=== PATIENT | female | born 1945 | race Caucasian/White ===

== ENCOUNTER 2020-07-11 12:39 | Outpatient (CLI) | payer MEDICARE, OTHER, SELFPAY ==
--- NOTE | ~2020-07-11 | DEXA_ITS ---
Bone Density Report Name: Verona Arango Age: 75 Sex: Female Ethnicity: White Date of : 1945 Indication: osteopenia; height loss; prior fracture; Referring Provider: TOMMY DODSON Study: Bone densitometry was performed. Exam Date: July 11, 2020 Accession number: [id number] Bone Density: Region BMD T-score Z-score Classification AP Spine (L1, L3, L4) 0.920 -1.2 1.2 Osteopenia Femoral Neck (Left) 0.674 -1.6 0.5 Osteopenia Total Hip (Left) 0.817 -1.0 0.7 Normal Total Hip Bilateral Avg 0.796 -1.2 0.6 Osteopenia Femoral Neck (Right) 0.647 -1.8 0.2 Osteopenia Total Hip (Right) 0.774 -1.4 0.4 Osteopenia World Health Organization criteria for BMD impression classify patients as: Normal (T-score at or above -1.0), Osteopenia (T-score between -1.0 and -2.5), or Osteoporosis (T-score at or below -2.5). 10-year Fracture Risk(1): Major Osteoporotic Fracture 17% Hip Fracture 3.5% Reported Risk Factors: [place] (), Neck BMD=0.647, BMI=35.7, previous fracture (1) FRAX(R) Version 3.08. Fracture probability calculated for an untreated patient. Fracture probability may be lower if the patient has received treatment. Previous Exams: Region Exam Age BMD T-score BMD Change BMD Change Date g/cm2 vs Baseline vs Previous AP Spine(L1, L3, L4) 07/11/2020 75 0.920 -1.2 -0.279(-23.3%) -0.108(-10.5%) 07/08/2018 73 1.028 -0.2 -0.171(-14.3%) -0.218(-17.5%) 11/08/2013 68 1.246 1.8 0.047(3.9%)# -0.024(-1.9%)# 03/28/2010 65 1.270 2.0 0.070(5.9%)* 0.070(5.9%)* 03/24/2008 63 1.199 1.3 Total Hip(Left) 07/11/2020 75 0.817 -1.0 -0.418(-33.8%) 0.023(2.9%)# 07/08/2018 73 0.794 -1.2 -0.441(-35.7%) -0.233(-22.7%) 11/11/2015 70 1.028 0.7 -0.207(-16.8%) -0.202(-16.4%) 11/08/2013 68 1.230 2.4 -0.005(-0.4%)# -0.019(-1.5%)# 03/28/2010 65 1.249 2.5 0.013(1.1%) 0.013(1.1%) 03/24/2008 63 1.235 2.4 Total Hip(Right) 07/11/2020 75 0.774 -1.4 -0.443(-36.4%) 0.009(1.2%)# 07/08/2018 73 0.765 -1.5 -0.452(-37.2%) -0.235(-23.5%) 11/11/2015 70 0.999 0.5 -0.218(-17.9%) -0.173(-14.8%) 11/08/2013 68 1.172 1.9 -0.045(-3.7%)# -0.019(-1.6%)# 03/28/2010 65 1.191 2.0 -0.026(-2.1%) -0.026(-2.1%) 03/24/2008 63 1.217 2.3 *Denotes significance at 95% confidence level, LSC for AP Spine = 0.022 g/cm2, LSC for Total Hip = 0.027 g/cm2 Clinical Information Provided by Patient: Has had a low trauma fracture
== END 2020-07-11 12:40 | disposition home or self-care (01) ==
PROVIDERS: Visit Provider Obstetrics & Gynecology Gynecology
DX: Z78.0 Asymptomatic menopausal state (principal); M85.88 Other specified disorders of bone density and structure, other site; M85.852 Other specified disorders of bone density and structure, left thigh; M85.851 Other specified disorders of bone density and structure, right thigh
CPT/HCPCS: 77080

== ENCOUNTER 2022-07-24 11:53 | Outpatient (CLI) | payer MEDICARE, OTHER, SELFPAY ==
--- NOTE | ~2022-07-24 | DEXA_ITS ---
Bone Density Report Name: OCTAVIA TRUONG Age: 77 Sex: Female Ethnicity: White Date of : 1945 Indication: osteopenia; height loss; postmenopausal Referring Provider: RAVINDRA, DANYELL Study: Bone densitometry was performed. Exam Date: July 24, 2022 Accession number: [id number] Bone Density: Region BMD T-score Z-score Classification AP Spine(L1, L2, L3) 0.962 -0.5 1.9 Normal Femoral Neck (Left) 0.600 -2.2 -0.1 Osteopenia Total Hip (Left) 0.732 -1.7 0.1 Osteopenia Femoral Neck (Right) 0.578 -2.4 -0.3 Osteopenia Total Hip (Right) 0.716 -1.9 0.0 Osteopenia Total Hip Mean 0.724 -1.8 0.1 Osteopenia World Health Organization criteria for BMD impression classify patients as: Normal (T-score at or above -1.0), Osteopenia (T-score between -1.0 and -2.5), or Osteoporosis (T-score at or below -2.5). 10-year Fracture Risk(1): Major Osteoporotic Fracture 15% Hip Fracture 4.3% Reported Risk Factors: [place] (), Neck BMD=0.578, BMI=35.9 (1) FRAX(R) Version 3.08. Fracture probability calculated for an untreated patient. Fracture probability may be lower if the patient has received treatment. Previous Exams: Region Exam Age BMD T-score BMD Change BMD Change Date g/cm2 vs Baseline vs Previous AP Spine (L1-L3) 07/24/2022 77 0.962 -0.5 -0.165 (-14.7% -0.083 (-8.0%) 07/08/2018 73 1.045 0.2 -0.082 (-7.3%) -0.082 (-7.3%) 11/11/2015 70 1.127 1.0 Total Hip(Left) 07/24/2022 77 0.732 -1.7 -0.296 (-28.8% -0.085 (-10.4% 07/11/2020 75 0.817 -1.0 -0.211 (-20.5% 0.023 (2.9%)# 07/08/2018 73 0.794 -1.2 -0.233 (-22.7% -0.233 (-22.7% 11/11/2015 70 1.028 0.7 Total Hip(Right) 07/24/2022 77 0.716 -1.9 -0.283 (-28.3% -0.058 (-7.4%) 07/11/2020 75 0.774 -1.4 -0.226 (-22.6% 0.009 (1.2%)# 07/08/2018 73 0.765 -1.5 -0.235 (-23.5% -0.235 (-23.5% 11/11/2015 70 0.999 0.5 *Denotes significance at 95% confidence level, LSC for AP Spine = 0.022 g/cm2, LSC for Total Hip = 0.027 g/cm2 # Denotes dissimilar scan types or analysis methods Clinical Information Provided by Patient: Patient maximum height was 64 Menopause Age: 56 No regular weight bearing exercise Drinks caffeinated beverages Onset of menses at age 13 Number of children 2 Impression: The patient has low bone mass, based on the Right Femoral Neck T-score. The patient has an estimated ten-year risk of hip fractur
== END 2022-07-24 11:54 | disposition home or self-care (01) ==
PROVIDERS: Visit Provider Nurse Practitioner
DX: Z78.0 Asymptomatic menopausal state (principal); M85.89 Other specified disorders of bone density and structure, multiple sites
CPT/HCPCS: 77080

== ENCOUNTER 2025-01-31 14:41 | Outpatient (CLI) | payer MEDICARE, OTHER, SELFPAY ==
--- NOTE | ~2025-01-31 | DEXA_ITS ---
Bone Density Report Name: OCTAVIA TRUONG Age: 79 Sex: Female Ethnicity: White Date of : 1945 Indication: osteopenia; height loss; Referring Provider: TOMMY DODSON Study: Bone densitometry was performed. Exam Date: January 31, 2025 Accession number: [id number] Bone Density: Region BMD T-score Z-score Classification AP Spine(L1, L3, L4) 0.952 -0.9 1.7 Normal Femoral Neck (Left) 0.539 -2.8 -0.5 Osteoporosis Total Hip (Left) 0.739 -1.7 0.3 Osteopenia Femoral Neck (Right) 0.556 -2.6 -0.4 Osteoporosis Total Hip (Right) 0.712 -1.9 0.1 Osteopenia Total Hip Mean 0.725 -1.8 0.2 Osteopenia World Health Organization criteria for BMD impression classify patients as: Normal (T-score at or above -1.0), Osteopenia (T-score between -1.0 and -2.5), or Osteoporosis (T-score at or below -2.5). 10-year Fracture Risk: FRAX not reported because: Some T-score for Spine Total or Hip Total or Femoral Neck at or below -2.5 Previous Exams: Region Exam Age BMD T-score BMD Change BMD Change Date g/cm2 vs Baseline vs Previous AP Spine (L1,L3-L4) 01/31/2025 79 0.952 -0.9 -0.076 (-7.4%) 0.032 (3.5%)# 07/11/2020 75 0.920 -1.2 -0.108 (-10.5% -0.108 (-10.5% 07/08/2018 73 1.028 -0.2 Total Hip(Left) 01/31/2025 79 0.739 -1.7 -0.289 (-28.1% 0.006 (0.9%) 07/24/2022 77 0.732 -1.7 -0.296 (-28.8% -0.085 (-10.4% 07/11/2020 75 0.817 -1.0 -0.211 (-20.5% 0.023 (2.9%)# 07/08/2018 73 0.794 -1.2 -0.233 (-22.7% -0.233 (-22.7% 11/11/2015 70 1.028 0.7 Total Hip(Right) 01/31/2025 79 0.712 -1.9 -0.287 (-28.8% -0.004 (-0.6%) 07/24/2022 77 0.716 -1.9 -0.283 (-28.3% -0.058 (-7.4%) 07/11/2020 75 0.774 -1.4 -0.226 (-22.6% 0.009 (1.2%)# 07/08/2018 73 0.765 -1.5 -0.235 (-23.5% -0.235 (-23.5% 11/11/2015 70 0.999 0.5 *Denotes significance at 95% confidence level, LSC for AP Spine = 0.022 g/cm2, LSC for Total Hip = 0.027 g/cm2 # Denotes dissimilar scan types or analysis methods Clinical Information Provided by Patient: Patient maximum height was 64 Menopause Age: 56 No regular weight bearing exercise Drinks caffeinated beverages Onset of menses at age 13 Number of children 2 Impression: The patient has osteoporosis, based on the Left Femoral Neck T-score. No significant bone loss was observed. Discussion: INCREASED RISK OF FRACTURE. BONE DENSITY IS UNDESIRABLY LOW AT ONE OR MORE SKELETAL SITES, CONSISTENT WITH POSTMENOPAUSAL OSTEOPOROSIS. This patient's lowest T-score meets the World Health Organization's (WHO) criteria for osteoporosis at one or more sites (T-score -2.5 or below). In untreated patients, the risk of osteoporotic fracture increases approximately two-fold for each 1.0 SD decrease in T-score. Low bone density is not the only risk factor for fracture; also consider factors such as patient's age, frailty or poor health, risk of falling, risk of injury, previous osteoporotic fracture, family history of osteoporosis, cigarette smoking, low body weight, etc. Not everyone with low bone mineral density has osteoporosis; osteomalacia and other metabolic bone disorders should also be considered. Patients who have osteoporosis should be evaluated for specific diseases and conditions (secondary causes) that may cause or contribute to bone loss. The [place] Association of Clinical Endocrinologists (AACE) and National Osteoporosis Foundation (NOF) recommend pharmacologic intervention for all postmenopausal women whose T-score is in this range. The patient should follow a healthful lifestyle (good nutrition with adequate calcium and vitamin D, and appropriate weight-bearing exercise). Follow-Up: Consider a repeat BMD and Vertebral Fracture Assessment (VFA) exam in 2 years or sooner if medically necessary, to reassess this patient's status. Reported by: RADHA on 01/31/2025 3:39:00 PM. Reviewed, dictated and finalized at location A.
--- OUTSIDE RECORDS SUMMARY | 2025-01-31 14:51 | XMS_ITS | Encounter Summary ---
Author Organization [facility] Address [address] [address] Phone Care Team Providers Care Lead Loader Name Role Phone Roman Manuel DO Primary Care Provider +- [phone] Roman Manuel DO Primary Care Provider +- [phone] Chiquita Miller MD Primary Care Provider + Renaldo Hernandez MD Primary Care Prov ider Chiquita Miller MD Primary Care Provider + Chiquita Miller MD Primary Care Provider + Encounter Details Date Type Department Care Team (Late st Contact Info) Description 07/11/2002 Orders Only [facility] [address] [facility] [address]th [place] [address] Scanning, Provider Social History Tobacco Use Types Packs/Day Years Used Date Smoking Tobacco: Never Assessed Comments Unknown Sex and Gender Information Value Date Recorded Sex Assigned at Not on file Legal Sex Female 1:59 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 Gender Identity Female 03/21/2024 3:36 PM CDT Sexual Orientation Straight 03/21/2024 3: 36 PM CDT documented as of this encounter Plan of Treatment Not on file documented as of this encounter Procedures Procedure Name Priority Date/Time Associated Diagnosis Comments SCAN - OTHER ORDERS 07/11/2002 documented in this encounter Results * SCAN - OTHER ORDERS (07/11/2002) us Provider Scanning Final Result documented in this encounter Visit Diagnoses Not on filedocumented in this encounter Additional Health Concerns Infection Onset Date Last Indicated Resolved Time COVID: Suspected 10/10/2024 10/10/2024 10/10/2024 10:06 PM SEAMER documented as of this encounter Care Teams Lead Loader Relationship Specialty Start Date End Date Roman Manuel DO PCP - General 05/30/12 03/29/17 Roman Manuel DO PCP - General 06/22/11 05/29/12 Chiquita Miller MD [address] [facility] [place] [address] [place] [id number] PCP - General 03/30/17 03/30/17 Renaldo Hernandez MD [address] [place] [address] PCP - General 03/31/17 04/05/17 Chiquita Miller MD [address] [facility] [address] [place] [address] [place] [id number] PCP - General 04/06/17 06/28/17 Chiquita Miller MD [address] [facility] [address] [place] [address] [place] [id number] PCP - General 06/29/17 documented as of this encounter
--- OUTSIDE RECORDS SUMMARY | 2025-01-31 14:51 | XMS_ITS | Continuity of Care Document ---
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 Medication Details Route Status Patient Instructions Prescription Expires Prescription Number Last Dispense Date Ordering Provider Order Date Order Qty Source albuterol 90 mcg inhaler [8.5g] See Instruct ions, # 25.5 g, 4 total refill(s ), Hard Stop Ordered 10/10/2025 5 2024 25.5 Ambulat ory Pharmac y amLODIPine 5 mg tablet 5 mg, Oral, Daily, # 90 EA, 3 total refill(s ), Hard Stop Oral (given by mouth) Discont inued 07/26/2024 4 2023 90.0 Ambulat ory Pharmac y amLODIPine 5 mg tablet See Instruct ions, # 90 EA, 3 total refill(s ), Acute Complet ed 12/01/2023 3 2023 90.0 Ambulat ory Pharmac y amLODIPine 5 mg tablet See Instruct ions, # 90 EA, 3 total refill(s ), Hard Stop Ordered 07/21/2025 5 2024 90.0 Ambulat ory Pharmac y atorvastati n 40 mg tablet See Instruct ions, # 180 EA, 3 total refill(s ), Hard Stop Ordered 08/29/2025 5 2024 180.0 Ambulat ory Pharmac y atorvastati n 80 mg tablet = 1 tab(s), Oral, Daily, # 90 EA, 0 total refill(s ), Hard Stop Oral (given by mouth) Discont inued 09/01/2024 4 2023 90.0 Ambulat ory Pharmac y celecoxib 100 mg capsule 100 mg, Oral, BID, # 180 EA, 3 total refill(s ), Hard Stop Oral (given by mouth) Discont inued 02/17/2024 4 2023 180.0 Ambulat ory Pharmac y CEPHALEXIN (CEPHALEXIN MONOHYDRATE ), 500MG, CAPSULE, ORAL, [employer], 500 ea. BOTTLE Active [id number] 4 2023 20 Pharmac y [employer] Service [employer]ilit y dapaglifloz in 10 mg tablet = 1 tab(s), Oral, Daily, # 30 EA, 0 total refill(s ), Hard Stop Oral (given by mouth) Complet ed 11/17/2024 5 2024 30.0 Ambulat ory Pharmac y DOXYCYCLINE HYCLATE (doxycyclin e hyclate), 100 MG, CAPSULE, ORAL, [employer], 500 ea. BOTTLE Active [id number] 4 2023 20 Pharmac y Data Transac t[employer] Service [employer]ilit y empaglifloz in 10 mg tablet = 1 tab(s), Oral, Daily, # 90 EA, 3 total refill(s ), Soft Stop Oral (given by mouth) Ordered 5 2024 90.0 Ambulat ory Pharmac y fluticasone 50 mcg/inh nasal spray [16g] 100 mcg, Nostril- Both, Daily, # 48 g, 3 total refill(s ), Hard Stop Nostri l-Both (into the nose) Discont inued 02/17/2024 4 2023 48.0 Ambulat ory Pharmac y fluticasone 50 mcg/inh nasal spray [16g] See dose instruct ions in comments , # 48 g, 2 total refill(s ), Acute Complet ed 07/13/2023 3 2022 48.0 Ambulat ory Pharmac y furosemide 40 mg tablet See Instruct ions, # 90 EA, 3 total refill(s ), Acute Complet ed 12/01/2023 3 2023 90.0 Ambulat ory Pharmac y furosemide 40 mg tablet = 1 tab(s), Oral, Daily, # 90 EA, 3 total refill(s ), Soft Stop Oral (given by mouth) Ordered 5 2024 90.0 Ambulat ory Pharmac y hydroxychlo roquine 200 mg tablet 200 mg, Oral, BID, # 180 EA, 3 total refill(s ), Hard Stop Oral (given by mouth) Discont inued 07/26/2024 4 2023 180.0 Ambulat ory Pharmac y hydroxychlo roquine 200 mg tablet See Instruct ions, # 180 EA, 3 total refill(s ), Hard Stop Ordered 07/21/2025 5 2024 180.0 Ambulat ory Pharmac y hydroxychlo roquine 200 mg tablet See Instruct ions, # 90 EA, 3 total refill(s ), Acute Complet ed 12/01/2023 3 2023 90.0 Ambulat ory Pharmac y isosorbide mononit ER (UD) 60 MG PO TB24 Do not drink alcohol. Take or use exactly as directed .Swallow whole. Active 02/27/2025 [id number] 4 2023 180 [facility] Jonnathan [facility] ([facility] isosorbide mononitrate ER 60 mg/24 hour tablet See dose instruct ions in comments , # 180 EA, 1 total refill(s ), Acute Complet ed 07/13/2023 3 2022 180.0 Ambulat ory Pharmac y isosorbide mononitrate ER 60 mg/24 hour tablet 60 mg, Oral, BID, # 180 EA, 3 total refill(s ), Hard Stop Oral (given by mouth) Ordered 02/27/2025 5 2024 180.0 Ambulat ory Pharmac y isosorbide mononitrate ER 60 mg/24 hour tablet 60 mg, Oral, BID, # 180 EA, 3 total refill(s ), Hard Stop Oral (given by mouth) Discont inued 02/28/2024 4 2023 180.0 Ambulat ory Pharmac y ketoconazol e 2% cream [60g] See dose instruct ions in comments , # 60 g, 2 total refill(s ), Acute Complet ed 12/01/2023 3 2023 60.0 Ambulat ory Pharmac y losartan 25 mg tablet = 1 tab(s), Oral, Daily, # 90 EA, 3 total refill(s ), Soft Stop Oral (given by mouth) Ordered 5 2024 90.0 Ambulat ory Pharmac y losartan 25 mg tablet = 1 tab(s), Oral, Daily, # 30 EA, 0 total refill(s ), Hard Stop Oral (given by mouth) Discont inued 11/13/2024 5 2024 30.0 Ambulat ory Pharmac y metoprolol tartrate 25 mg tablet See Instruct ions, # 180 EA, 3 total refill(s ), Acute Complet ed 12/01/2023 3 2023 180.0 Ambulat ory Pharmac y metoprolol tartrate 25 mg tablet 25 mg, Oral, BID, # 180 EA, 3 total refill(s ), Hard Stop Oral (given by mouth) Discont inued 07/26/2024 4 2023 180.0 Ambulat ory Pharmac y metoprolol tartrate 25 mg tablet See Instruct ions, # 180 EA, 3 total refill(s ), Hard Stop Ordered 07/21/2025 5 2024 180.0 Ambulat ory Pharmac y mupirocin 2% ointment [22g] See Instruct ions, # 22 g, 3 total refill(s ), Hard Stop Discont inued 07/26/2024 4 2023 22.0 Ambulat ory Pharmac y mupirocin 2% ointment [22g] See Instruct ions, Topical, # 22 g, 4 total refill(s ), Soft Stop Topica l (on the skin) Ordered 5 2024 22.0 Ambulat ory Pharmac y mupirocin 2% ointment [22g] See Instruct ions, # 22 g, 4 total refill(s ), Hard Stop Discont inued 01/05/2025 4 2024 22.0 Ambulat ory Pharmac y mupirocin 2% ointment [22g] See Instruct ions, # 22 g, 4 total refill(s ), Acute Complet ed 12/01/2023 3 2023 22.0 Ambulat ory Pharmac y nitroglycer in 0.4 mg sublingual tablet [25EA] See dose instruct ions in comments , # 75 EA, 3 total refill(s ), Acute Complet ed 07/13/2023 3 2022 75.0 Ambulat ory Pharmac y omeprazole DR 40 mg capsule 40 mg, Oral, Daily, # 90 EA, 3 total refill(s ), Hard Stop Oral (given by mouth) Discont inued 07/26/2024 4 2023 90.0 Ambulat ory Pharmac y omep[address]ole DR 40 mg capsule See Instruct ions, # 90 EA, 3 total refill(s ), Hard Stop Ordered 07/21/2025 5 2024 90.0 Ambulat ory Pharmac y omep[address]ole DR 40 mg capsule See dose instruct ions in comments , # 90 EA, 3 total refill(s ), Acute Complet ed 12/01/2023 3 2023 90.0 Ambulat ory Pharmac y ONDANSETRON HCL (ONDANSETRO N HCL), 4MG, TABLET, ORAL, [employer], 30 ea. BOTTLE Cancele d [id number] : 2023 0 Pharmac y Data Transac tion Service Facilit y ONDANSETRON HCL (ONDANSETRO N HCL), 4MG, TABLET, ORAL, [employer], 30 ea. BOTTLE Active [id number] 4 2023 10 Pharmac y Data Transac t[employer] Service [employer]ilit y pilocarpine 5 mg oral tablet TAKE ONE TABLET THREE TIMES DAILY, # 90 EA, 11 total refill(s ), Acute Complet ed 01/28/2024 3 2023 90.0 Ambulat ory Pharmac y polyethylen e glycol 3350 suspension [510g] See dose instruct ions in comments , # 1530 g, 3 total refill(s ), Acute Complet ed 07/13/2023 3 2022 1530.0 Ambulat ory Pharmac y potassium chloride 20 mEq oral tablet, extended release TAKE ONE TABLET DAILY FOR 3 DAYS, # 3 EA, 0 total refill(s ), Acute Complet ed 04/14/20232022 3.0 Ambulat ory Pharmac y potassium chloride ER [EQV Klor-Con M20] 20 mEq tablet See Instruct ions, Oral, # 30 EA, 0 total refill(s ), Hard Stop Oral (given by mouth) Complet ed 11/17/2024 5 2024 30.0 Ambulat ory Pharmac y pravastatin 40 mg tablet See Instruct ions, # 180 EA, 3 total refill(s ), Hard Stop Discont inued 07/26/2024 4 2023 180.0 Ambulat ory Pharmac y pravastatin 40 mg tablet See Instruct ions, # 180 EA, 3 total refill(s ), Hard Stop Ordered 07/21/2025 4 2023 180.0 Ambulat ory Pharmac y pravastatin 40 mg tablet See Instruct ions, # 180 EA, 3 total refill(s ), Acute Complet ed 12/01/2023 3 2023 180.0 Ambulat ory Pharmac y Ranexa ER 500 mg/12 hour tablet See dose instruct ions in comments , # 180 EA, 1 total refill(s ), Acute Complet ed 07/13/2023 3 2022 180.0 Ambulat ory Pharmac y ranolazine ER 500 mg/12 hour tablet 500 mg, Oral, BID, # 180 EA, 3 total refill(s ), Hard Stop Oral (given by mouth) Discont inued 07/26/2024 4 2023 180.0 Ambulat ory Pharmac y ranolazine ER 500 mg/12 hour tablet See Instruct ions, # 180 EA, 3 total refill(s ), Hard Stop Ordered 07/21/2025 5 2024 180.0 Ambulat ory Pharmac y SOD SULF-POTASS SULF-MAG SULF (sodium sulfate/pot assium sulfate/mag nesium sulfate), 17.5-3.13G, SOLN RECON, ORAL, AFFORDABLE PHAR, 354 ml KIT Cancele d [id number] : 2023 0 Pharmac y Data Transac tion Service Facilit y SOD SULF-POTASS SULF-MAG SULF (sodium sulfate/pot assium sulfate/mag nesium sulfate), 17.5-3.13G, SOLN RECON, ORAL, AFFORDABLE PHAR, 354 ml KIT Cancele d [id number] : 2023 0 Pharmac y Data Transac tion Service Facilit y SOD SULF-POTASS SULF-MAG SULF (sodium sulfate/pot assium sulfate/mag nesium sulfate), 17.5-3.13G, SOLN RECON, ORAL, AFFORDABLE PHAR, 354 ml KIT Cancele d [id number] : 2023 0 Pharmac y Data Transac tion Service Facilit y triamcinolo ne 0.1% ointment [80g] See Instruct ions, # 80 g, 0 total refill(s ), Hard Stop Complet ed 09/26/2024 4 2024 80.0 Ambulat ory Pharmac y triamcinolo ne 0.1% ointment [80g] See Instruct ions, # 80 g, 2 total refill(s ), Soft Stop Ordered 5 2024 80.0 Ambulat ory Pharmac y Allergies, Adverse Reactions, Alerts Combined list of allergies from Department of Defense and Veterans Affairs facilities. It does not include entries that were removed or entered in error. Substance Category Reaction Severity Reaction type Status Date Reported Comments Source NEOSPORIN Drug allergy (disorder) Unknown active 0 [facility] ([facility] Neosporin Drug allergy Rash, Unknown Mild Active Ambulatory Pharmacy sulfa drugs Propensity to adverse reactions to drug Unknown Active Unknown Organization [facility] S Drug allergy (disorder) Unknown active 0 [facility] Jonnathan [facility] ([facility] Immunizations Combined list of available immunizations from the Department of Defense and Veterans Affairs facilities. Immunization Series Date Given Administered By Site Reaction Lot Number CVX Code Drug Technical Fellow Status Comments Source COVID-19, mRNA, LNP-S, PF, 100 mcg or 50 mcg dose 2021 BLAYNE Moderna [employer] (MOD) Not Given COVID-19, mRNA, LNP-S, PF, 100 mcg or 50 mcg dose DoD Influenza vaccine, quadrivalent, adjuvanted 2020 ALUL, () Not Given Influenza vaccine, quadrival ent, adjuvante d DoD COVID Vaccine Moderna 2020 zzRig ht Arm [id number] complet ed COVID Vaccine Moderna 11/11/20 Given Ambulat ory Pharmac y SARS-COV-2 (COVID-19) vaccine, mRNA, spike protein, LNP, preservative free, 100 mcg or 50 mcg dose 1 2020 Unknown, Provider [id number] [employer] (MOD) complet ed SARS-COV- 2 (COVID-19 ) vaccine, mRNA, spike protein, LNP, preservat lashae free, 100 mcg or [address] [facility] Procedures Combined list of: 1) Procedures from Department of Veterans Affairs facilities going back up to thelast 18 months, not all [place] non-surgical procedures are included; 2) All procedures from the Department of Defense facilities. Procedure Procedure Type Code Date Perfomer Comments Sourc e No data available for this section Ambulatory P harmacy Social History Combined list of available smoking, tobacco, and other social history from Department of Defense and Veterans Affairs facilities. Social History Type Response Date Comment Sourc e This section is an empty social history section. DoD Assessment and Plan Combined list of future care activities from Department of Defense and Veterans Affairs facilities (e.g., assessment and plan notes, appointments, orders, and referrals). Additional future care activities may be listed in the Plan of Care section. Result Assessment and Plan Date Source Assessment and Plan No data available for this section 01/31/2025 Ambulatory Pharmacy Functional Status Combined list of recent functional and cognitive assessments recorded at Department of Defense and Veterans Affairs ([place] Functional [place] Measurement (FIM) Scale: 1 = Total Assistance (Subject = 0% +), 2 = Maximal Assistance (Subject = 25% +), 3 = Moderate Assistance (Subject = 50% +), 4 = Minimal Assistance (Subject = 75% +), 5 = Supervision, 6 = Modified [place] (Device), 7 = Complete [place] (Timely, Safely). Assessment Date/Time Source Assessment Type Assessment Skill Assessment Score Assessment Details No data available for this section
--- OUTSIDE RECORDS SUMMARY | 2025-01-31 14:51 | XMS_ITS | Clinical Summary ---
Author Organization [facility] Address [address] [place] [address] Phone Care Team Providers Care Rn Cardiovascular Icu Name Role Phone Renaldo Hernandez MD Primary Care Provider [phone] Allergies Active Allergy Reactions Criticality Noted Date Comments Adhesive Rash Low 06/16/2010 Avocado Other (See Comments) 06/16/2010 Latex Rash,Other (See Comments) Low 08/11/2010 Upylhroi-Liclytfpob-Uqqarnr in Other (See Comments) 06/16/2010 Sulfa (Sulfonamide Antibiotics) Angioedema High 06/16/2010 Medications valsartan (DIOVAN) 160 mg Oral tablet Take 160 mg by mouth daily. Active metoprolol succinate ER 24 hour (TOPROL XL) 50 mg Oral tablet Take 50 mg by mouth daily. Active clopidogrel (PLAVIX) 75 mg Oral Tab Take 75 mg by mouth daily. Active aspirin (AMRITA) 325 mg Oral tablet Take 325 mg by mouth daily. Active ergocalciferol (VITAMIN D) 50,000 unit Oral capsuleIndicati ons:takes 1st of the month Take 50,000 Units by mouth every 30 days. Indications: takes 1st of the month 0 Active OTHER Calcium, zinc, mag, fish oil, Co q 10,tumeric,alpha lopic acid, l-chance Active ESTRADIOL (CLIMARA TRANSDERMAL) Apply to skin as directed. Active nitroglycerin (NITROSTAT) 0.[address] 0.4 mg under tongue every 5 minutes as needed. Active NIFEdipine SR 24 hour (ADALAT CC) 30 mg Oral tablet Take 30 mg by mouth daily. Active MAGNESIUM CHLORIDE ORAL Take by mouth daily. 0 Active ZINC ORAL Take by mouth daily. 0 Active Calcium Chloride, Bulk, 95 % Misc Powd by [facility].(Non-Drug; Combo Route) route daily. 0 Active multivitamin (DAILY-SHANTI) Oral tablet Take 1 Tab by mouth daily. Active oxyCODONE-aceta minophen (PERCOCET) 5-325 mg Oral tablet Take 1 Tab by mouth every 4 hours as needed for Pain. 60 Tab 0 0 Active fondaparinux (ARIXTRA) 2.5 mg/0.5 mL subCUT Syrg Inject 0.5 mL by subcutaneous injection daily. 10 Syringe 0 0 Active docusate sodium (COLACE) 100 mg Oral capsule Take 1 Cap by mouth 2 times daily. 40 Cap 0 0 Active prochlorperazin e maleate (COMPAZINE) 10 mg Oral tablet Take 1 Tab by mouth every 6 hours as needed for Nausea. 20 Tab 0 0 Active meclizine (ANTIVERT) 25 mg Oral tablet Take 1 Tab by mouth every 6 hours. 30 Tab 0 0 Active Active Problems Problem Noted Date Diagnosed Date Light headed 08/24/2010 Nausea alone 08/21/2010 Unspecified essential hypertension 08/20/2010 Other chest pain 08/20/2010 Constipation 08/20/2010 Social History Tobacco Use Types Packs/Day Years Used Date Smoking Tobacco: Former Cigarettes 3 10 0 09/13/1964 - 09/13/1974 Alcohol Use Standard Drinks/Week Comments Yes 0 (1 standard drink = 0.6 oz pur e alcohol) rarely Comments Unknown Sex and Gender Information Value Date Recorded Sex Assigned at Not on file Legal Sex Female 5:55 AM DRUG COORDINATOR Gender Identity Not on file Sexual Orientation Not on file Last Filed Vital Signs Vital Sign Reading Time Taken Comments Blood Pressure 119/53 08/24/2010 8:37 AM DRUG COORDINATOR sta nding Pulse 90 08/24/2010 7:14 AM DRUG COORDINATOR Temperature 37.8 C (100 F) 08/24/2010 7:14 AM DRUG COORDINATOR Respiratory Rate 16 08/24/2010 7:14 AM DRUG COORDINATOR Oxygen Saturation 98% 08/24/2010 7:14 AM DRUG COORDINATOR Inhaled Oxygen Concentration - - Weight 77.1 kg (170 lb) 08/20/2010 5:55 AM DRUG COORDINATOR Height 162.6 cm (5' 4 ) 08/11/2010 12:41 PM DRUG COORDINATOR Body Mass Index 29.18 08/11/2010 12:41 PM DRUG COORDINATOR Plan of Treatment Health Maintenance Due Date Last Done Comments DTAP/TDAP/TD VACCINES (1 - Tdap) 1965 PNEUMOCOCCAL VACCINE 50+ YEARS (1 of 1 - PCV) 03/03/19 96 ZOSTER VACCINE (1 of 2) 1996 OSTEOPOROSIS SCREENING 2011 RSV VACCINE (60+ or ) (1 - 1-dose 75+ series) 2021 INFLUENZA VACCINE (#1) 2024 Medical Devices Implanted Type Area Human Resources Benefits Coordinator Device Identifier Shelf Expiration Date Model / Serial / Lot Log [id number] - Dave Total Knee Nexgen - 1 - Comp Fem Nxgn Cr-Flx Por [id number] Implanted:Qty: 1 on 08/20/2010 at [facility] Knee Right: Knee [employer] 02/11/2020 [id number] / / [id number] Log [id number] - Dave Total Knee Nexgen - 1 - Art Surface Nxgn Cr-Flx [id number] Implanted:Qty: 1 on 08/20/2010 at [facility] Knee Right: Knee [employer] 05/13/2018 [id number] / / [id number] Log [id number] - Dave Total Knee Nexgen - 1 - Comp Tib Nxgn Tm [id number] Implanted:Qty: 1 on 08/20/2010 at [facility] Knee Right: Knee [employer] 04/12/2020 [id number] / / [id number] Insurance MEDICARE PART A AND B Advance Directives For more information, please contact: [phone] * Full Code (Latest Code Status on File) Date Activated Date Inactivated Comments 08/20/2010 11:24 AM 08/24/2010 7:10 PM * Full Code Date Activated Date Inactivated Comments 08/20/2010 5:23 AM 08/20/2010 11:24 AM Care Teams Rn Cardiovascular Icu Relationship Specialty Start Date End Date Renaldo Hernandez MD PCP - General Family Practice 05/26/10
--- OUTSIDE RECORDS SUMMARY | 2025-01-31 14:51 | XMS_ITS | Clinical Summary ---
Author Organization [facility] Address [address] [place] [address] Care Team Providers Care Organic Chemist Name Role Phone Chiquita Miller MD Primary Care Provider + Allergies Active Allergy Reactions Criticality Noted Date Comments Adhesive Rash Medium 06/16/2010 Avocado Other (See comments) Low 06/16/2010 Bacitracin Benzalkonium Gramicidin D Hydrocortisone Latex Rash Medium 08/11/2010 Rash and sores after latex exposure,gloves,ba ndages Other reaction(s): Other (See Comments) Neomycin Ewxujzbp-Qabsqevmdo-Kqtdw yxin Other (See comments),Unknown,R luisa Medium 06/16/2010 Niacin Unknown 03/18/2012 Polymyxin B Skin Cleanser Sulfa (Sulfonamide Antibiotics) Anaphylaxis,Angioed bren,Unknown High 08/11/2006 Medications aspirin 81 mg enteric coated tablet Take 2 tablets (162 mg total) by mouth daily 7 Active folic acid (FOLVITE) 400 mcg tablet 7 Active Travel Sickness, meclizine, 25 mg tablet 1 Active polyethylene glycol (MIRALAX) 17 gram packet Take 1 packet (17 g total) by mouth daily 100 packet 3 2 Active silver sulfadiazine (SILVADENE, SSD) 1 % cream Apply topically daily Active ondansetron (ZOFRAN) 4 mg tablet Take 1 tablet (4 mg total) by mouth 4 Active fluticasone propionate (FLONASE) 50 mcg/actuation nasal spray Administer 100 mcg into affected nostril(s) 4 Active isosorbide mononitrate ER (IMDUR) 60 mg 24 hr tablet Take 1 tablet (60 mg total) by mouth 2 (two) times a day 180 tablet 3 4 02/28/20 25 Active amLODIPine (NORVASC) 5 mg tablet Take 1 tablet (5 mg total) by mouth daily 90 tablet 3 4 07/21/20 25 Active mupirocin (BACTROBAN) 2 % ointment Apply topically 2 (two) times a day 30 g 3 4 Active ranolazine ER (Ranexa) 500 mg 12 hr tablet Take 1 tablet (500 mg total) by mouth 2 (two) times a day 180 tablet 3 4 07/21/20 25 Active metoprolol tartrate (LOPRESSOR) 25 mg immediate release tablet Take 1 tablet (25 mg total) by mouth 2 (two) times a day 180 tablet 3 4 07/21/20 25 Active omeprazole (PriLOSEC) 40 mg capsule Take 1 capsule (40 mg total) by mouth daily 90 capsule 3 4 Active hydroxychloroquin e (PLAQUENIL) 200 mg tablet Take 1 tablet (200 mg total) by mouth 2 (two) times a day 180 tablet 3 4 Active atorvastatin (LIPITOR) 40 mg tablet Take 2 tablets (80 mg total) by mouth daily 180 tablet 3 4 08/29/20 25 Active albuterol HFA (PROVENTIL HFA,VENTOLIN HFA,PROAIR HFA) 90 mcg/actuation inhaler Inhale 2 puffs every 6 (six) hours as needed for wheezing 3 each 4 5 10/10/19 26 Active empagliflozin (JARDIANCE) 10 mg tabletIndications :Heart Failure Take 1 tablet (10 mg total) by mouth daily 90 tablet 3 5 11/10/19 26 Active furosemide (LASIX) 40 mg tablet Take 1 tablet (40 mg total) by mouth daily 90 tablet 3 5 11/10/19 26 Active losartan (COZAAR) 25 mg tablet Take 1 tablet (25 mg total) by mouth daily 90 tablet 3 5 11/10/19 26 Active Active Problems Problem Noted Date Diagnosed Date 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 FOL symptoms and persistent scotoma are not C/w migrainous aura. Pt denies GCA symptoms of weight loss, diplopia, scalp tenderness, and myalgias. Pt does have history of CABG, carotid endarterectomy, SLE, CVA, [place] and right carotid is completely occluded. Refer to ED for stroke work up, Sed Rate , and CRP to ro GCA although pt is symptomatic and suspicion is low. 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 Now 4 weeks out, may improve with continued observation Plan to see in 6 weeks - if still suspended and floating into view plan for repeat YAG -- concern this could create more floaters Patient agreeable with plan Assessment & Plan (09/11/2020 5:28 PM SUPERVISOR FELTING): S/p YAG OU OD clear and improved OS with tag of PCO left Plan touch up YAG OS today Follow 4 weeks, back to [facility] after this Assessment & Plan (07/31/2020 1:05 PM SUPERVISOR FELTING): PCO OU Plan for YAG OU today Follow 4 weeks Physical exam 07/25/2020 Coronary artery disease invo lving [place] heart without angina pectoris 07/25/2020 Vitamin B12 deficiency 07/25/2020 Vitamin D deficiency 07/25/2020 Hyperparathyroidism 07/25/2020 Choroidal nevus, both eyes 06/05/2020 Assessment & Plan (08/16/2024 3:38 PM SUPERVISOR FELTING): Flat, no concerning features, Monitor Assessment & Plan (01/26/2024 2:18 PM CDT): DFE with Dr. Quezada in 6 months Assessment & Plan (02/04/2022 1:37 PM CDT): Stable on DFE today Monitor annually Assessment & Plan (07/31/2020 1:06 PM SUPERVISOR FELTING): Following on DFEs with Dr. Meehan Pseudophakia, both eyes 06/05/2020 Assessment & Plan (05/11/2022 4:40 PM CDT): Lenses centered and stable, monitor Assessment & Plan (02/04/2022 1:38 PM CDT): Doing well without concerns Needs new Rx IOP check and Rx with Dr. Quezada, to me 1 year for DFE/HVF/OCT Assessment & Plan (08/06/2021 1:11 PM SUPERVISOR FELTING): Stable both eyes Assessment & Plan (03/26/2021 11:57 AM CDT): Floater OS is improving s/p YAG Doing well otherwise Dry eye syndrome of both eyes 06/05/2020 Assessment & Plan (02/04/2022 1:37 PM CDT): Stable on ATs Follow annually Assessment & Plan (03/26/2021 11:58 AM CDT): Dryness with some blepharitis concerns Plan to start warm compresses Continue ATs Follow 6 months for symptom check Presbyopia 06/07/2019 Drug-induced systemic lupus erythematosus 2018 Epiretinal membrane, left 05/31/2019 Glaucoma suspect of both eyes 05/26/2018 Assessment & Plan (09/21/2024 1:53 PM SUPERVISOR FELTING): Excellent intraocular pressure (IOP) both eyes (OU) FU Dr De La Torre as scheduled Assessment & Plan (08/16/2024 3:38 PM SUPERVISOR FELTING): G/S OU IOP at goal Follow 1 year with Britt for testing Assessment & Plan (01/26/2024 2:17 PM CDT): G/S OU IOP at goal HVF OU wnl OCT OU wnl Follow 1 year with Britt for testing Assessment & Plan (08/11/2023 9:35 PM SUPERVISOR FELTING): Doing well IOP At goal CPM Follow 6 months with HVF/OCT OU Assessment & Plan (02/10/2023 12:31 PM CDT): Glaucoma suspect both eyes Doing well without concerns HVF/OCT OU without progression IOP at goal Follow [address] Segura Annual testing with me Assessment & Plan (05/11/2022 4:42 PM CDT): Excellent intraocular pressure (IOP) today Fu Dr De La Torre Assessment & Plan (02/04/2022 1:38 PM CDT): Stable testing last visit Follow 1 year with HVF/OCT, sooner for concerns Assessment & Plan (08/06/2021 1:11 PM SUPERVISOR FELTING): IOP at goal OU Doing well with no concerns HVF stable and full OCT wnl Follow 6 months with DFE Assessment & Plan (03/26/2021 11:57 AM CDT): Glaucoma suspect both eyes IOP at goal Follow 6 months with HVF/OCT, sooner for concerns Assessment & Plan (07/31/2020 1:06 PM SUPERVISOR FELTING): Low risk Normal IOP, borderline cupping Continue with Dr. Meehan High risk medication use 05/26/2018 Assessment & Plan (08/16/2024 3:42 PM SUPERVISOR FELTING): Normal OCT both eyes (OU) FU for mac oct 6 months /10- Assessment & Plan (01/26/2024 2:18 PM CDT): On Plaquenil - mac OCT with Dr. 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, [address] [place] [address] Danica De La Torre MD Rescheduled 02/14 appt. 12/07/2024 9:40 AM CDT Office Visit [facility] ENT [address] [place] [address] Laura Colorado MD Lip deformity, acquired (Primary Dx) 11/10/2024 Telephone [facility] [address] [place] [address] [place] [address] Chiquita Tavarez MBA Refill Request from Last 3 Months Immunizations Immunization Administration Dates Next Due Influenza, Quadrivalent, Hig h Dose, Preservative Free, Intrr 06/11/2020 Influenza, Unspecified 06/12/2020,06/13/2016 Moderna SARS-CoV-2 Monovalent Vaccination (12+ Y RS) 11/11/2020,10/14/2020 Pneumococcal Polysaccharide PPV23 06/13/2016 Tdap 10/11/2021 ZOSTER Recombinant 05/24/2019,03/13/2019 Surgical History Surgery Date Site/Laterality Comments [place] AMPUTATION LEG THROUGH TIBIA&FIBULA Amputation Of Leg Below Knee - (Added by TW Conv) [place] TEAEC W/PATCH GRF CAROTID VERTB SUBCLAV NECK INC Carotid Thromboendarterectomy - left, along with CABG, 2013 (Added by TW Conv) CHOLECYSTECTOMY CATARACT EXTRACTION W/ INTRAOCULAR LENS IMPLANT Bilateral CORONARY ARTERY BYPASS GRAFT CAROTID ENARTERECTOMYY EYE SURGERY Bilateral Yag Cap Medical History Medical History Date Comments Hypertension Hypertension Peripheral vascular disease Agueda pheral vascular disease Personal history of other di seases of the circulatory system History of hypertension - (A dded by Conv) Personal history of other en docrine, nutritional and metabolic disease History of hyperchol esterolemia - (Added by TW Conv) Personal history of diseases of skin or subcutaneous tissue History of gangrene - (Added by TW Conv) SLE (systemic lupus erythema tosus) (HCC) Glaucoma suspect of both eyes Coronary artery disease Pericardial tamponade Decubitus ulcer Left leg, sternu m Peripheral arterial disease Lupus Migraines MRSA (methicillin resistant Staphylococcus aureus) Myocardial infarction (HCC) Peripheral neuropathy Stroke (HCC) Urinary tract infection Osteoporosis Allergic rhinitis Autoimmune disease Heart disease GERD (gastroesophageal reflu x disease) Sinusitis Family History Medical History Relation Name Comments COPD Brother Heart disease Brother COPD Father Heart disease Father Stroke Father Stroke Syndrome - (Added by TW Conv) Allergic rhinitis Mother Cancer Mother Cataracts Mother Colon cancer Mother Colon cancer - (Added by TW Conv) Uterine cancer Mother Family histor y of malignant neoplasm of uterus - (Added by TW Conv) Stroke Other Stroke Syndrome - (Added by TW Conv) Blindness Neg Hx Diabetes Neg Hx Glaucoma Neg Hx Macular degeneration Neg Hx Relation Name Status Comments Brother Father Mother Other Social History Tobacco Use Types Packs/Day Years Used Date Smoking Tobacco: Former Cigarettes Q uit: 1977 Smokeless Tobacco: Never Tobacco Cessation:Counseling Given: Not Answered Alcohol Use Standard Drinks/Week Comments No 0 (1 standard drink = 0.6 oz pur e alcohol) AUDIT-C Answer Date Recorded Q1: How often do you have a drink containing alc ohol? Never 04/03/2021 Average Number of Drinks Not on file 021 Q3: How often do you have si x or more drinks on one occasion? Never 04/03/2021 PHQ-2 Answer Date Recorded PHQ-2 Total Score (If total score is 3 or more points, staff should administer the PHQ-9) 0 08/17/2024 Personal Safety Answer Date Recorded Have you ever been in or are you currently in a harmful physical or emotional relationship or is someone making you feel afraid or unsafe? Denies 08/17/2024 Comments No Sex and Gender Information Value Date Recorded Sex Assigned at Not on file Legal Sex Female 1:59 AM SUPERVISOR FELTING Gender Identity Female 03/21/2024 3:36 PM CDT Sexual Orientation Straight 03/21/2024 3: 36 PM CDT Occupation Industry Job Start Date Job End Date RETIRED Not on file Not on file Not on file Obstetrics History Last Filed Vital Signs Vital Sign Reading Time Taken Comments Blood Pressure 138/60 09/26/2024 10:09 AM SUPERVISOR FELTING MA NUAL Pulse 66 09/26/2024 9:57 AM SUPERVISOR FELTING Temperature 37 C (98.6 F) 08/17/2024 7:46 AM SUPERVISOR FELTING Respiratory Rate 18 08/17/2024 7:46 AM SUPERVISOR FELTING Oxygen Saturation 96% 08/17/2024 7:46 AM SUPERVISOR FELTING Inhaled Oxygen Concentration - - Weight 86.2 kg (190 lb) 09/26/2024 9:57 AM SUPERVISOR FELTING Height 160 cm (5' 3 ) 09/26/2024 9:57 AM SUPERVISOR FELTING Body Mass Index 33.66 09/26/2024 9:57 AM SUPERVISOR FELTING Plan of Treatment Health Maintenance Due Date Last Done Comments Hepatitis C Screening 1945 Osteoporosis Screening-Bone Density Scan 1945 Hepatitis B Screening 1963 Well Visit 65+ 2011 Pneumococcal vaccine 65+ (2 of 2 - PCV) 06/13/2017 06/13/2016 Covid-19 Vaccine (3 - Modern a risk series) 12/09/2020 11/11/2020, 10/14/2020 Influenza Vaccine (Season Ended) 2025 06/12/2020, 06/11/2020, 06/13/2016 Depression Screening 08/16/2025 08/16/2024 Fall Risk Assessment 08/17/2025 08/17/2024 DTaP/Tdap/Td Vaccine (2 - Td or Tdap) 10/11/2031 10/11/2021 Zoster Vaccine Completed 05/24/2019, 03/13/2019 Breast Cancer Screening-Mammogram Discontinued 04/14/2024, 04/13/2023, 04/10/2022, Additional history exists Procedures Procedure Name Priority Date/Time Associated Diagnosis Comments SCREENING MAMMOGRAM BILATERAL W JUAN PABLO Schedule Routine, Read Routine (OP Routine) 04/14/2024 11:06 AM CDT Screening mammogram, encounter for from Last 3 Months or Most Recently Relevant to Health Maintenance Results * Screening Mammogram Bilateral W Juan Pablo (04/14/2024 11:06 AM CDT) Anatomical Region Laterality Modality Breast Bilateral Mammography Narrative 04/17/2024 10:39 AM CDT Mammogram Technique: Bilateral Digital Breast Tomosynthesis, Bilateral C-view 2D Screening mammogram. Views obtained: bilateral craniocaudal and bilateral mediolateral oblique. Computer Aided Detection was performed. Mammogram Findings: The present examination has been compared to prior imaging studies performed at [facility] on 04/09/2021, 04/10/2022 and 04/13/2023. The breasts are heterogeneously dense, which may obscure small masses. There is no suspicious abnormality in either breast. Impression: There is no mammographic evidence of malignancy. Annual screening mammography is recommended. If supplemental screening is desired, breast MRI would be recommended in this patient with heterogeneously dense breasts. OVERALL FINAL ASSESSMENT: BI-RADS CATEGORY 1: Negative. Procedure Note Donna Duncan MD - 04/17/2024 Mammogram Technique: Bilateral Digital Breast Tomosynthesis, Bilateral C-view 2D Screening mammogram. Views obtained: bilateral craniocaudal and bilateral mediolateral oblique. Computer Aided Detection was performed. Mammogram Findings: The present examination has been compared to prior imaging studies performed at [facility] on 04/09/2021, 04/10/2022 and 04/13/2023. The breasts are heterogeneously dense, which may obscure small masses. There is no suspicious abnormality in either breast. Impression: There is no mammographic evidence of malignancy. Annual screening mammography is recommended. If supplemental screeningis desired, breast MRI would be recommended in this patient with heterogeneously dense breasts. OVERALL FINAL ASSESSMENT: BI-RADS CATEGORY 1: Negative. us Self Screening Mammogram IMG MAMMO PROCEDURES Fi nal Result from Last 3 Months or Most Recently Relevant to Health Maintenance Insurance * Guarantor: Octavia Arango Account Type Relation to Patient Date of Phone Billing Address Personal/Family Self 1945 [address] [place] [address] MEDICARE [employer] * Guarantor: Octavia Arango Account Type Relation to Patient Date of Phone Billing Address Personal/Family Self 1945 [address] [place] [address] MEDICARE FOR LIFE MEDICARE FOR LIFE Advance Directives For more information, please contact: [phone] * Full Code (Latest Code Status on File) Date Activated Date Inactivated Comments 08/17/2024 12:13 AM 08/17/2024 5:27 PM Care Teams Organic Chemist Relationship Specialty Start Date End Date Chiquita Miller MD [address] [address] PCP - General 06/29/17
--- OUTSIDE RECORDS SUMMARY | 2025-01-31 14:51 | XMS_ITS | Clinical Summary ---
Author Organization [facility] [employer] Address [address] [facility] [place] [address] Care Team Providers Care Wind Plant Manager Name Role Phone Chiquita Miller MD Primary Care Provider + Source Comments [facility],non-owned Affiliates and Associated Physician Practices is amultiple site organization consisting of ambulatory clinics and hospital sitesin [place], [place], [place] and [place]. This disclosure is being madepursuant to the Care Everywhere program and may not contain all information available regarding this patient. Last updated 18.[facility] [employer] Allergies Active Allergy Reactions Criticality Noted Date Comments Sulfa Drugs Unknown 10/11/2021 Active Problems Problem Noted Date Diagnosed Date Acute traumatic pain 10/11/2021 Traumatic hematoma of right wrist 10/11/2021 Immunizations Immunization Administration Dates Next Due TDAP (7yrs+) 10/11/2021 Social History Tobacco Use Types Packs/Day Years Used Date Smoking Tobacco: Never Assessed AUDIT-C Answer Date Recorded Q1: How often do you have a drink containing alc ohol? Never 10/11/2021 Average Number of Drinks Not on file 022 Frequency of Binge Drinking Not on file 09/14 Comments Unknown Sex and Gender Information Value Date Recorded Sex Assigned at Not on file Legal Sex Female 6:25 AM FOOD PREPARATION SUPERVISOR Gender Identity Not on file Sexual Orientation Not on file Last Filed Vital Signs Vital Sign Reading Time Taken Comments Blood Pressure 143/64 10/11/2021 7:45 PM FOOD PREPARATION SUPERVISOR Pulse 86 10/11/2021 7:55 PM FOOD PREPARATION SUPERVISOR Temperature 36.9 C (98.4 F) 10/11/2021 7:45 PM FOOD PREPARATION SUPERVISOR Respiratory Rate 16 10/11/2021 7:55 PM FOOD PREPARATION SUPERVISOR Oxygen Saturation 97% 10/11/2021 7:55 PM FOOD PREPARATION SUPERVISOR Inhaled Oxygen Concentration - - Weight 65.8 kg (145 lb) 04/11/2015 10:56 AM CDT Height 160 cm (5' 3 ) 04/11/2015 10:56 AM CDT Body Mass Index 25.69 04/11/2015 10:56 AM CDT Plan of Treatment Health Maintenance Due Date Last Done Comments BONE DENSITY TESTING 1945 HEPATITIS C SCREENING 02/27/1964 PNEUMOCOCCAL VACCINE 50+ (1 of 1 - PCV) 1996 ZOSTER VACCINE (1 of 2) 1996 Respiratory Syncytial Virus (RSV) Vaccine Pt: or over 60 yrs (1 - 1-dose 75+ series) 2021 COVID-19 VACCINE ( - season) 2024 07/26/2021, 11/11/2020, 10/14/2020 DEPRESSION SCREENING 09/13/2024 INFLUENZA VACCINE (Season Ended) 2025 06/06/2021, 06/12/2020, 06/11/2020, Additional history exists DTAP/TDAP/TD VACCINES (2 - Td or Tdap) 10/11/2031 10/11/2021 HEPATITIS B VACCINE Aged Out No longe r eligible based on patient's age to complete this topic HIB VACCINE Aged Out No longer eligi ble based on patient's age to complete this topic HPV VACCINE Aged Out No longer eligi ble based on patient's age to complete this topic MENINGOCOCCAL (Group B) VACCINE SHARED DECISION-MAKING Aged Out No longer eligible based on patient's age to complete this topic MENINGOCOCCAL GROUPS A/C/Y/W VACCINE Aged Out No longer eligible based on patient's age to complete this topic Additional Health Concerns Infection Onset Date Last Indicated MDRO Comment:09/24/14 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
--- OUTSIDE RECORDS SUMMARY | 2025-01-31 14:51 | XMS_ITS | Referral Summary ---
Author Organization [facility] Address [address] [place] [address] Care Team Providers Care Bed Maker Name Role Phone Chiquita Miller MD Primary Care Provider + Encounters Date Type Department Care Team Description 01/29/[address] [facility] Ophthalmology [address] [facility] 2nd Floor, [address] [place] [id number] Danica De La Torre MD Rescheduled 02/14 appt. 12/07/2024 9:40 AM CDT Office Visit [facility] [address] [facility] [address] [place] [id number] Laura Colorado MD Lip deformity, acquired (Primary Dx) 11/10/2024 [facility] [address] [place] [address] Medicine 5th [place] [address] [place] [address] Chiquita Tavarez MBA Refill Request from Last 3 Months Allergies Active Allergy Reactions Criticality Noted Date Comments Adhesive Rash Medium 06/16/2010 Avocado Other (See comments) Low 06/16/2010 Bacitracin Benzalkonium Gramicidin D Hydrocortisone Latex Rash Medium 08/11/2010 Rash and sores after latex exposure,gloves,ba ndages Other reaction(s): Other (See Comments) Neomycin Xunvjbgp-Guokgycmmr-Gqbzm yxin Other (See comments),Unknown,R luisa Medium 06/16/2010 [...] 12/2023 Assessment & Plan (09/21/2024 1:12 PM PRIVATE WATCHMAN): Retinal edema resolved, no neovascularization elsewhere (NVE) seen, residual retinal atrophy left eye (OS) Monitor - fu 6 months mac oct both eyes (OU) Assessment & Plan (08/16/2024 3:46 PM PRIVATE WATCHMAN): Retinal edema with acute painless onset of scotoma x 1week from artery occlusion confirmed on oct, and optos. FOL symptoms and persistent scotoma are not C/w migrainous aura. Pt denies GCA symptoms of weight loss, diplopia, scalp tenderness, and myalgias. 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 Refer [...] 07/31/2020 Assessment & Plan (11/20/2020 5:10 PM PRIVATE WATCHMAN): PCO OU S/p YAG OU OD doing well OS with central floater improving Will not plan on YAGing given do not want to increase floaters Monitor in 4 months, sooner for concerns Assessment & Plan (10/09/2020 2:00 PM PRIVATE WATCHMAN): PCO OU S/p YAG OU OD doing [...] plan Assessment & Plan (09/11/2020 5:28 PM PRIVATE WATCHMAN): S/p YAG OU OD clear and improved OS with tag of PCO left Plan touch up YAG OS today Follow 4 weeks, back to [facility] after this Assessment & Plan (07/31/2020 1:05 PM PRIVATE WATCHMAN): PCO OU Plan for YAG OU today Follow 4 weeks Physical exam 07/25/2020 Coronary artery disease invo lving [place] heart without angina pectoris 07/25/2020 Vitamin B12 deficiency 07/25/2020 Vitamin D deficiency 07/25/2020 Hyperparathyroidism 07/25/2020 Choroidal nevus, 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 Quezada in 6 months Assessment & Plan (02/04/2022 1:37 PM CDT): Stable on DFE today Monitor annually Assessment & Plan (07/31/2020 1:06 PM PRIVATE WATCHMAN): Following on DFEs with Dr. Meehan Pseudophakia, both eyes 06/05/2020 Assessment & Plan (05/11/2022 4:40 PM CDT): Lenses centered and stable, monitor Assessment & Plan (02/04/2022 1:38 PM CDT): Doing well without concerns Needs new Rx IOP check and Rx with Dr. Quezada, to me 1 year for DFE/HVF/OCT Assessment & Plan (08/06/2021 1:11 PM PRIVATE WATCHMAN): Stable both eyes Assessment & Plan (03/26/2021 [...] 05/26/2018 Assessment & Plan (09/21/2024 1:53 PM PRIVATE WATCHMAN): Excellent intraocular pressure (IOP) both eyes (OU) FU Dr De La Torre as scheduled Assessment & Plan (08/16/2024 3:38 PM PRIVATE WATCHMAN): G/S OU IOP at goal Follow 1 year with Britt for testing Assessment & Plan (01/26/2024 2:17 PM CDT): G/S OU IOP at goal HVF OU wnl OCT OU wnl Follow 1 year with Britt for testing Assessment & Plan (08/11/2023 9:35 PM PRIVATE WATCHMAN): Doing well IOP At goal CPM Follow [...] concerns Assessment & Plan (08/06/2021 1:11 PM PRIVATE WATCHMAN): IOP at goal OU Doing well with no concerns HVF stable and full OCT wnl Follow 6 months with DFE Assessment & Plan (03/26/2021 11:57 AM CDT): Glaucoma suspect both eyes IOP at goal Follow 6 months with HVF/OCT, sooner for concerns Assessment & Plan (07/31/2020 1:06 PM PRIVATE WATCHMAN): Low risk Normal IOP, borderline cupping Continue with Dr. Meehan High risk medication use 05/26/2018 Assessment & Plan (08/16/2024 3:42 PM PRIVATE WATCHMAN): Normal OCT both eyes (OU) FU for mac oct 6 months /- Assessment & Plan (01/26/2024 2:18 PM CDT): [...] Essential hypertension 08/20/2010 Tingling of skin 12/03/2006 Immunizations Immunization Administration Dates Next Due Influenza, Quadrivalent, Hig h Dose, Preservative Free, Intrr 06/11/2020 Influenza, Unspecified 06/12/2020,06/13/2016 Moderna SARS-CoV-2 Monovalent Vaccination (12+ Y RS) 11/11/2020,10/14/2020 Pneumococcal Polysaccharide PPV23 06/13/2016 Tdap 10/11/2021 ZOSTER Recombinant 05/24/2019,03/13/2019 Social History Tobacco Use Types Packs/Day Years Used Date Smoking Tobacco: Former Cigarettes Q uit: 1976 Smokeless Tobacco: Never Tobacco Cessation:Counseling Given: Not [...] on file Legal Sex Female 1:59 AM PRIVATE WATCHMAN Gender Identity Female 03/21/2024 3:36 PM CDT Sexual Orientation Straight 03/21/2024 3: 36 PM CDT Occupation Industry Job Start Date Job End Date RETIRED Not on file Not on file Not on file Last Filed Vital Signs Vital Sign Reading Time Taken Comments Blood Pressure 138/60 09/26/2024 10:09 AM PRIVATE WATCHMAN MA NUAL Pulse 66 09/26/2024 9:57 AM PRIVATE WATCHMAN Temperature 37 C (98.6 F) 08/17/2024 7:46 AM PRIVATE WATCHMAN Respiratory Rate 18 08/17/2024 7:46 AM PRIVATE WATCHMAN Oxygen Saturation 96% 08/17/2024 7:46 AM PRIVATE WATCHMAN Inhaled Oxygen Concentration - - Weight 86.2 kg (190 lb) 09/26/2024 9:57 AM PRIVATE WATCHMAN Height 160 cm (5' 3 ) 09/26/2024 9:57 AM PRIVATE WATCHMAN Body Mass Index 33.66 09/26/2024 9:57 AM PRIVATE WATCHMAN Plan of Treatment Not on file Procedures Procedure Name Priority Date/Time Associated Diagnosis [...] compared to prior imaging studies performed at [facility] on 04/09/2021, 04/10/2022 and 04/13/2023. The breasts [...] compared to prior imaging studies performed at [facility] on 04/09/2021, 04/10/2022 and 04/13/2023. The breasts [...] Most Recently Relevant to Health Maintenance Insurance MEDICARE [employer] LIFE MEDICARE FOR LIFE MEDICARE FOR LIFE Advance Directives For more information, please contact: [phone] * Full Code (Latest Code Status on File) Date Activated Date Inactivated Comments 08/17/2024 12:13 AM 08/17/2024 5:27 PM Care Teams Bed Maker Relationship Specialty Start Date End Date Chiquita Miller MD [address] [address] PCP - General 06/29/17
== END 2025-01-31 14:42 | disposition home or self-care (01) ==
PROVIDERS: Visit Provider Obstetrics & Gynecology Gynecology
DX: Z78.0 Asymptomatic menopausal state (principal); M81.0 Age-related osteoporosis without current pathological fracture; M85.89 Other specified disorders of bone density and structure, multiple sites
CPT/HCPCS: 77080

== ENCOUNTER 2025-07-16 16:22 | Inpatient (IN) | payer MEDICARE, OTHER, SELFPAY ==
--- NOTE | ~2025-07-16 | XR_ITS ---
EXAMINATION: XR chest 1V portable COMPARISON: No comparisons available. HISTORY: rib pain/SOB FINDINGS: The lungs are clear, no effusion. No pneumothorax. Heart is normal size. Mediastinal and hilar contours are within normal limits. Post sternotomy. Miscellaneous: None Impression: No acute cardiopulmonary abnormality. Reviewed, dictated and finalized at location P. TRONIC HEAT SEAL OPERATOR Impression: No acute cardiopulmonary abnormality.
--- NOTE | ~2025-07-16 | XR_ITS ---
EXAMINATION: XR ankle LT min 3V, 07/17/2025 8:40 C D STRIPPER HISTORY: trauma COMPARISON: No comparisons available. Findings: Slightly displaced fractures of the distal fibula and medial malleolus. No significant degenerative changes. Soft tissue swelling. Impression: Fractures detailed above Reviewed, dictated and finalized at location P. C D STRIPPER Impression: Fractures detailed above
--- NOTE | ~2025-07-16 | CT_ITS ---
CT pelvis wo con INDICATION:recent fall x2wk; ?pelvis fracture? COMPARISON: None. TECHNIQUE: Noncontrast axial CT images of the pelvis were obtained followed by multiplanar reconstruction in the coronal and sagittal planes. FINDINGS: Acute displaced vertical left sacral ala fracture. This produces a gap of 2 to 3 mm in medial to lateral dimension. There are no dislocation. Degenerative changes are noted with joint space narrowing and small marginal osteophytes extending from the femoral head. There are disc bulging seen in the lumbar spine. There is grade 1 anterolisthesis of L5 forward on L5. There are vascular calcification of the aorta. IMPRESSION: Acute displaced vertical left sacral fracture.i All CT scans at this facility are performed using low dose modulation techniques as appropriate to perform exam including the following: automated exposure control; use of iterative reconstruction technique; adjustment of the mA and/or kV according to patient size (this includes techniques or standardized protocols for targeted exams where dose is matched to indication/reason for exam). Reviewed, dictated and finalized at location S. SPRING BARREL ASSEMBLY CLEANER IMPRESSION: Acute displaced vertical left sacral fracture.i All CT scans at this facility are performed using low dose modulation techniqu es as appropriate to perform exam including the following: automated exposure c ontrol; use of iterative reconstruction technique; adjustment of the mA and/or kV according to patient size (this includes techniques or standardized protocol s for targeted exams where dose is matched to indication/reason for exam).
--- NOTE | ~2025-07-16 | CT_ITS ---
EXAM/PROCEDURE: CTA chest PE abdomen pel HISTORY: elevated d-dimer; SOB COMPARISON: Pelvic CT from July 16 TECHNIQUE: CT PA and a CT of the abdomen and pelvis with contrast enhancement. No colon portions of the retroperitoneal soft tissues in the abdomen and pelvis are excluded from [id number] due to size of patient. FINDINGS: No pulmonary emboli seen. Heart and great vessels normal in size. Extensive coronary artery calcification and/or stenting with median sternotomy retention wires noted. No significant pericardial effusion or bulky lymphadenopathy. Small right and trace left-sided pleural effusion with minimal atelectatic changes in the lung bases right greater than left. Calcified granuloma posterior segment right lower lobe. Diffuse degenerative and splenic changes throughout the bones which otherwise appear intact. In the abdomen and pelvis, minimally displaced vertical left sacroiliac fracture are again noted. The bowel gas pattern is nonobstructive with no free air or free fluid or pneumatosis seen. No solid or viscus organ injury identified. Uterus and adnexal regions stable. Cholecystectomy clips. Liver and adrenal glands and kidneys spleen and pancreas and stomach appear stable. Retroperitoneal soft tissues unremarkable. IMPRESSION: 1. Development of bilateral pleural effusions, with mild atelectatic changes. No pulmonary emboli seen. 2. Minimally displaced vertical fracture left sacral alar unchanged. 3. Exam somewhat limited as noted above. Reviewed, dictated and finalized at location A. PROTECTOR IMPRESSION: 1. Development of bilateral pleural effusions, with mild atelectatic changes. N o pulmonary emboli seen. 2. Minimally displaced vertical fracture left sacral alar unchanged. 3. Exam somewhat limited as noted above.
--- NOTE | ~2025-07-16 | XR_ITS ---
PROCEDURE(S): Radiography left hand, minimum 3 views INDICATION(S): Injury to the fifth digit COMPARISON(S): None. TECHNIQUE: 3 radiographic images were submitted for interpretation. FINDINGS: Bones: There is demineralization. There is a small fracture fragment seen dorsal to the PIP of the fifth digit with at least moderate displacement. The donor site is from the middle phalanx proximally and dorsally. There is a possible additional very tiny cortical defect/fracture fragment at the palmar aspect of the proximal middle phalanx, also seen on the lateral image. There are no destructive lesions or other lesions identified. Joints: There are no dislocations identified. There is no evidence of erosive arthropathy. IMPRESSION: Findings consistent with an evulsion fracture at the proximal and dorsal aspect of the middle phalanx of the fifth digit. There may be an additional fracture with tiny fragment at the palmar aspect. Reviewed, dictated and finalized at location A. HANGER SUPERVISOR IMPRESSION: Findings consistent with an evulsion fracture at the proximal and d orsal aspect of the middle phalanx of the fifth digit. There may be an addition al fracture with tiny fragment at the palmar aspect.
--- NOTE | ~2025-07-16 | XR_ITS ---
PROCEDURE(S): 3 views left knee radiography INDICATION(S): Injury and pain COMPARISON(S): None. TECHNIQUE: 3 radiographic images were submitted for interpretation. FINDINGS: Bones: There are no fractures seen. There are no destructive lesions or other lesions identified. Joints: There is mild to moderate osteoarthritic type change of the medial compartment and moderate such changes of the lateral compartment. There is no evidence of erosive arthropathy. There is significant arterial calcification. Multiple surgical clips in the medial soft tissues. IMPRESSION: No acute abnormalities are seen. Reviewed, dictated and finalized at location A. IFYING PLANT OPERATOR
[2025-07-16 16:21] VITALS: BP 158/68; PULSE 73; RESP 20; TEMP 36.9; O2SAT 94
--- OUTSIDE RECORDS SUMMARY | 2025-07-16 16:34 | XMS_ITS | Encounter Summary ---
Author Organization [facility] Address [address] [facility] [address] [place] [address] Phone Care Team Providers Care Wireless Watcher Name Role Phone Chiquita Miller MD Primary Care Provider + Andrew Kinsey MD Unavailable [phone] Maxwell Sosa MD Unavailable [phone] Encounter Details Date Type Department Care Team (Late st Contact Info) Description 07/10/2025 Results Follow-Up [facility] [address] [facility] Advanced Medicine 5th [place] [address] [place] [address] Chiquita Miller MD [address] [facility] [address] [place] [address] MRI Hip Left WO Contrast, MRI Lumbar Spine WO Contrast, MRI Pelvis WO Contrast Social History Tobacco Use Types Packs/Day Years Used Date Smoking Tobacco: Former Cigarettes Q uit: 1976 Smokeless Tobacco: Never Alcohol Use Standard Drinks/Week Comments No 0 (1 standard drink = 0.6 oz pur e alcohol) [facility] Utilities Answer Date Recorded In the past 12 months has [employer], gas, oil, or water [employer] threatened to shut off services in your home? No 02/08/2025 Social Connection and Isolation Panel Answer Date Recorded In a typical week, how many times do you talk on the phone with family, friends, or neighbors? Twice a week 02/08/2025 How often do you get togethe r with friends or relatives? Once a week 02/08/2025 How often do you attend baptism or gnosticist serv ices? Patient declined 02/08/2025 Do you belong to any clubs o r organizations such as baptism groups, unions, fraternal or athletic groups, or school groups? No 02/08/2025 How often do you attend meet ings of the clubs or organizations you belong to? Not asked 02/08/2025 Are you , , di vorced, , never , or living with a partner? 02/08/2025 AUDIT-C Answer Date Recorded Q1: How often do you have a drink containing alc ohol? Never 04/03/2021 Average Number of Drinks Not on file 021 Q3: How often do you have si x or more drinks on one occasion? Never 04/03/2021 Overall Financial Resource Strain (CARDIA) Answe r Date Recorded How hard is it for you to pa y for the very basics like food, housing, medical care, and heating? Not hard at all 02/08/2025 PHQ-2 Answer Date Recorded Patient Health Questionnaire-2 Score 0 02/08/2025 [facility] - Occupational Stress Questionnaire Answer Date Recorded Do you feel stress - tense, restless, nervous, or anxious, or unable to sleep at night because your mind is troubled all the time - these days? Not at all 02/08/2025 Exercise Vital Sign Answer Date Recorde d On average, how many days pe r week do you engage in moderate to strenuous exercise (like a brisk walk)? 7 days On average, how many minutes do you engage in exercise at this level? Patient declined 02/08/2025 Hunger Vital Sign Answer Date Recorded Within the past 12 months, y ou worried that your food would run out before you got the money to buy more. Never true 02/09/20 25 Within the past 12 months, t he food you bought just didn't last and you didn't have money to get more. Never true 02/08/2025 PRAPARE - Transportation Answer Date Re corded In the past 12 months, has l ack of transportation kept you from medical appointments or from getting medications? No 01/12 In the past 12 months, has l ack of transportation kept you from meetings, work, or from getting things needed for daily living? No 02/08/2025 Housing Stability Vital Sign Answer Abhinav e Recorded In the last 12 months, was t here a time when you were not able to pay the mortgage or rent on time? No 02/08/2025 Number of Times Moved in the Last Year Not on fi le 02/08/2025 At any time in the past 12 m [facility], were you homeless or living in a fpc (including now)? No 02/08/2025 Personal Safety Answer Date Recorded Have you ever been in or are you currently in a harmful physical or emotional relationship or is someone making you feel afraid or unsafe? Denies 07/02/2025 Comments No Sex and Gender Information Value Date Recorded Sex Assigned at Not on file Legal Sex Female 1:59 AM ORTHOTICS PROSTHETICS TECHNICIAN Gender Identity Female 03/21/2024 3:36 PM CDT Sexual Orientation Straight 03/21/2024 3: 36 PM CDT Occupation Industry Job Start Date Job End Date RETIRED Not on file Not on file Not on file documented as of this encounter Miscellaneous Notes * Result Encounter Note - Chiquita Miller MD - 07/10/2025 8:31 PM CDT Bilateral sacral fractures and pubic ramus fractures. Peyton Jamil placed Home health/PT/OT referral. Would you please call them to try to expedite? * Result Encounter Note - Chiquita Miller MD - 07/10/2025 8:29 PM CDT Sacral fractures and pubic ramus fractures bilaterally. Moderate spinal canal stenosis at L4-L5. * Result Encounter Note - Chiquita Miller MD - 07/10/2025 8:28 PM CDT Sacral fractures and pubic ramus fractures bilaterally documented in this encounter Plan of Treatment Not on file documented as of this encounter Visit Diagnoses Not on filedocumented in this encounter Care Teams Wireless Watcher Relationship Specialty Start Date End Date Chiquita Miller MD [address] [facility] [address] [place] [address] PCP - General 06/29/17 Andrew Kinsey MD [address] [facility], [facility] [address] [place] [address] Printing Supplies Sales Representative Dermatology 05/29/25 Maxwell Sosa MD [address] [facility] MEDICAL ONCOLOGY, [facility] [address] [place] [address] Medical Oncologist/[facility] 05/29/25 documented as of this encounter
--- OUTSIDE RECORDS SUMMARY | 2025-07-16 16:34 | XMS_ITS | Clinical Summary ---
Author Organization [facility] Address [address] [facility] [place] [address] Phone Care Team Providers Care Thermo Cementing Folder Operator Name Role Phone Renaldo Hernandez MD Primary Care Provider [phone] Allergies Active Allergy Reactions Criticality Noted Date Comments Adhesive Rash Low 06/16/2010 Avocado Other (See Comments) 06/16/2010 Latex Rash,Other (See Comments) Low 08/11/2010 Ukviafkn-Oilksdmccp-Kesedmv in Other (See Comments) 06/16/2010 Sulfa (Sulfonamide [...] Chloride, Bulk, 95 % Misc Powd by [facility].(Non-Drug; Combo Route) route daily. 0 Active multivitamin [...] on file Legal Sex Female 5:55 AM SUPERVISOR PRODUCTION MANAGING Gender Identity Not on file Sexual Orientation Not on file Last Filed Vital Signs Vital Sign Reading Time Taken Comments Blood Pressure 119/53 08/24/2010 8:37 AM SUPERVISOR PRODUCTION MANAGING sta nding Pulse 90 08/24/2010 7:14 AM SUPERVISOR PRODUCTION MANAGING Temperature 37.8 C (100 F) 08/24/2010 7:14 AM SUPERVISOR PRODUCTION MANAGING Respiratory Rate 16 08/24/2010 7:14 AM SUPERVISOR PRODUCTION MANAGING Oxygen Saturation 98% 08/24/2010 7:14 AM SUPERVISOR PRODUCTION MANAGING Inhaled Oxygen Concentration - - Weight 77.1 kg (170 lb) 08/20/2010 5:55 AM SUPERVISOR PRODUCTION MANAGING Height 162.6 cm (5' 4) 08/11/2010 12:41 PM SUPERVISOR PRODUCTION MANAGING Body Mass Index 29.18 08/11/2010 12:41 PM SUPERVISOR PRODUCTION MANAGING Plan of Treatment Health Maintenance Due Date Last Done Comments DTAP/TDAP/TD VACCINES (1 - Tdap) 1964 PNEUMOCOCCAL VACCINE 50+ YEARS (1 of 1 - PCV) 03/03/19 96 ZOSTER VACCINE (1 of 2) 1996 OSTEOPOROSIS SCREENING 2011 RSV VACCINE (60+ or ) (1 - 1-dose 75+ series) 2021 INFLUENZA VACCINE (#1) 2025 Medical Devices Implanted Type Area Seed And Fertilizer Specialist Device Identifier Shelf Expiration Date Model / Serial / Lot Log [id number] - Dave Total Knee Nexgen - 1 - Comp Fem Nxgn Cr-Flx Por [id number] Implanted:Qty: 1 on 08/20/2010 at [facility] Knee Right: Knee [employer] 02/11/2020 [id number] / / [id number] Log [id number] - Dave Total Knee Nexgen - 1 - Art Surface Nxgn Cr-Flx [id number] Implanted:Qty: 1 on 08/20/2010 at [facility] Knee Right: Knee [employer] 05/13/2018 [id number] / / [id number] Log [id number] - Dave Total Knee Nexgen - 1 - Comp Tib Nxgn Tm [id number] Implanted:Qty: 1 on 08/20/2010 at [facility] Knee Right: Knee [employer] 04/12/2020 [id number] / / [id number] Insurance MEDICARE PART A AND B Advance Directives For more information, please contact: [phone] * Full Code (Latest Code Status on File) Date Activated Date Inactivated Comments 08/20/2010 11:24 AM 08/24/2010 7:10 PM * Full Code Date Activated Date Inactivated Comments 08/20/2010 5:23 AM 08/20/2010 11:24 AM Care Teams Thermo Cementing Folder Operator Relationship Specialty Start Date End Date Renaldo Hernandez MD PCP - General Family Practice 05/26/10
--- OUTSIDE RECORDS SUMMARY | 2025-07-16 16:34 | XMS_ITS | Clinical Summary ---
Author Organization [facility] [employer] Address [address] [place] [address] Care Team Providers Care Musical String Maker Name Role Phone Chiquita Miller MD Primary Care Provider + Source Comments [facility],non-owned Affiliates and Associated Physician Practices is amultiple site organization consisting of ambulatory clinics and hospital sitesin [place], [place], [place] and [place]. This disclosure is being madepursuant to the Care Everywhere program and may not contain all information available regarding this patient. Last updated 18.[facility] [employer] Allergies Active Allergy Reactions Criticality Noted Date [...] on file Legal Sex Female 6:25 AM ACID POLYMERIZATION OPERATOR Gender Identity Not on file Sexual Orientation Not on file Last Filed Vital Signs Vital Sign Reading Time Taken Comments Blood Pressure 143/64 10/11/2021 7:45 PM ACID POLYMERIZATION OPERATOR Pulse 86 10/11/2021 7:55 PM ACID POLYMERIZATION OPERATOR Temperature 36.9 C (98.4 F) 10/11/2021 7:45 PM ACID POLYMERIZATION OPERATOR Respiratory Rate 16 10/11/2021 7:55 PM ACID POLYMERIZATION OPERATOR Oxygen Saturation 97% 10/11/2021 7:55 PM ACID POLYMERIZATION OPERATOR Inhaled Oxygen Concentration - - Weight 65.8 kg (145 lb) 04/11/2015 10:56 AM CDT Height 160 cm (5' 3) 04/11/2015 10:56 AM CDT Body Mass Index 25.69 04/11/2015 10:56 AM CDT Plan of Treatment Health Maintenance Due Date Last Done Comments BONE DENSITY TESTING 1945 PNEUMOCOCCAL VACCINE 50+ (1 of 1 - PCV) 1996 ZOSTER VACCINE (1 of 2) 1996 Respiratory Syncytial Virus (RSV) Vaccine Pt: or over 60 yrs (1 - 1-dose 75+ series) 2021 DEPRESSION SCREENING 09/13/2024 COVID-19 VACCINE ( - season) 2025 07/26/2021, 11/11/2020, 10/14/2020 INFLUENZA VACCINE (#1) 2025 , 06/12/2020, 06/11/2020, Additional history exists DTAP/TDAP/TD VACCINES [...] 12:41 AM 09/27/2014 2:59 PM Care Teams Musical String Maker Relationship Specialty Start Date End Date Chiquita Miller MD [address] [address] PCP - General Internal Medicine 10/11/21
--- OUTSIDE RECORDS SUMMARY | 2025-07-16 16:34 | XMS_ITS | Encounter Summary ---
Author Organization [facility] [employer] Address [address] [address] Phone Care Team Providers Care Lead Pourer Name Role Phone Chiquita Miller MD Primary Care Provider + Andrew Kinsey MD Unavailable [phone] Maxwell Sosa MD Unavailable [phone] Encounter Details Date Type Department Care Team (Late st Contact Info) Description 07/16/2025 [facility] [address] [facility] Advanced Medicine 5th [address] [place], [place] [id number] Peyton Alonso Social History Tobacco Use Types Packs/Day Years Used Date Smoking Tobacco: Former Cigarettes Q uit: 1976 Smokeless Tobacco: Never Alcohol Use Standard Drinks/Week Comments No 0 (1 standard drink = 0.6 oz pur e alcohol) [facility] Utilities Answer Date Recorded In the past 12 months has [employer], gas, oil, or water [employer] threatened to shut off services in your home? No 02/08/2025 Social Connection and Isolation Panel Answer Date Recorded In a typical week, how many times do you talk on the phone with family, friends, or neighbors? Twice a week 02/08/2025 How often do you get togethe r with friends or relatives? Once a week 02/08/2025 How often do you attend mosque or voodoo serv ices? Patient declined 02/08/2025 Do you belong to any clubs o r organizations such as mosque groups, unions, fraternal or athletic groups, or [...] Recorded Patient Health Questionnaire-2 Score 0 02/08/2025 [facility] - Occupational Stress [...] any time in the past 12 m [facility], were you homeless or living in a custodial (including now)? No 02/08/2025 Personal Safety Answer Date Recorded Have you ever been in or are you currently in a harmful physical or emotional relationship or is someone making you feel afraid or unsafe? Denies 07/02/2025 Comments No Sex and Gender Information Value Date Recorded Sex Assigned at Not on file Legal Sex Female 1:59 AM TURNER MACHINE Gender Identity Female 03/21/2024 3:36 PM CDT Sexual Orientation Straight 03/21/2024 3: 36 PM CDT Occupation Industry Job Start Date Job End Date RETIRED Not on file Not on file Not on file documented as of this encounter Miscellaneous Notes * Telephone Encounter - Chiquita aTvarez MBA - 07/16/2025 1:48 PM TURNER MACHINE Is wondering if there is any update. I told him you faxed notes so they could pre-screen. ER MACHINE * Telephone Encounter - Peyton Alonso - 07/16/2025 9:54 AM CST Spoke w/ Laura/Adm JOYA/[phone] opt adm, requesting to fax OV notes for pre-screening. F# [phone] ER MACHINE * Telephone Encounter - Peyton Alonso - 07/16/2025 8:13 AM CST Spoke w/ Joe/, He is having a hard time trying to get pt to transfer from a chair to a w/c. She stands up, but has severe pain & weakness so she is unable to move her feet. She has left ankle pain & swelling. She is taking the Hydrocodone APAP - helps while she sits in the chair, but not helping when she stands. [facility] ER MACHINE documented in this encounter Plan of Treatment Not on file documented as of this encounter Visit Diagnoses Not on filedocumented in this encounter Care Teams Lead Pourer Relationship Specialty Start Date End Date Chiquita Miller MD [address] [facility] [address] [place] [address] PCP - General 06/29/17 Andrew Kinsey MD [address] DIV IM DERMATOLOGY, [facility] [address] [place] [address] Asset Protection Assistant Dermatology 05/29/25 Maxwell Sosa MD [address] DIV IM MEDICAL ONCOLOGY, [facility] [address] [place] [address] Medical Oncologist/Body Shop Supervisor Medical Oncology 05/29/25 documented as of this encounter
--- OUTSIDE RECORDS SUMMARY | 2025-07-16 16:34 | XMS_ITS | Encounter Summary ---
Author Organization [facility] Address [address] [facility] [address] [place] [address] Phone Care Team Providers Care Sap Technical Architect Name Role Phone Chiquita Miller MD Primary Care Provider + Andrew Kinsey MD Unavailable [phone] Maxwell Sosa MD Unavailable [phone] Encounter Details Date Type Department Care Team (Late st Contact Info) Description 07/16/2025 Orders Only [facility] [address] [facility] Advanced Medicine 5th [place] [address] [place] [address] Chiquita Miller MD [address] [facility] [address] [place] [address] Social History Tobacco Use Types Packs/Day Years Used Date Smoking Tobacco: Former Cigarettes Q uit: 1976 Smokeless Tobacco: Never Alcohol Use Standard Drinks/Week Comments No 0 (1 standard drink = 0.6 oz pur e alcohol) [facility] Utilities Answer Date Recorded In the past 12 months has [employer] electric, gas, oil, or water company threatened to shut off services in your home? No 02/08/2025 Social Connection and Isolation Panel Answer Date Recorded In a typical week, how many times do you talk on the phone with family, friends, or neighbors? Twice a week 02/08/2025 How often do you get togethe r with friends or relatives? Once a week 02/08/2025 How often do you attend restorationist or scientologist serv ices? Patient declined 02/08/2025 Do you belong to any clubs o r organizations such as restorationist groups, unions, fraternal or athletic groups, or [...] Recorded Patient Health Questionnaire-2 Score 0 02/08/2025 [facility] - Occupational Stress Questionnaire Answer Date [...] any time in the past 12 m onths, were you homeless or living in a half-way (including now)? No 02/08/2025 Personal Safety Answer Date Recorded Have you ever been in or are you currently in a harmful physical or emotional relationship or is someone making you feel afraid or unsafe? Denies 07/02/2025 Comments No Sex and Gender Information Value Date Recorded Sex Assigned at Not on file Legal Sex Female 1:59 AM LINE TENDER Gender Identity Female 03/21/2024 3:36 PM CDT Sexual Orientation Straight 03/21/2024 3: 36 PM CDT Occupation Industry Job Start Date Job End Date RETIRED Not on file Not on file Not on file documented as of this encounter Plan of Treatment Not on file documented as of this encounter Visit Diagnoses Not on filedocumented in this encounter Care Teams Sap Technical Architect Relationship Specialty Start Date End Date Chiquita Miller MD [address] [facility] [address] [place] [address] PCP - General 06/29/17 Andrew Kinsey MD [address] DIV IM DERMATOLOGY, [address] [place] [address] Mammalogy Teacher Dermatology 05/29/25 Maxwell Sosa MD [address] DIV IM MEDICAL ONCOLOGY, [address] [place] [address] Medical Oncologist/Painter Railroad Car Medical Oncology 05/29/25 documented as of this encounter
--- OUTSIDE RECORDS SUMMARY | 2025-07-16 16:34 | XMS_ITS | Clinical Summary ---
Author Organization [facility] Address [address] [place] [address] Care Team Providers Care Medical Office Technology Instructor Name Role Phone Sarbjit Miller MD Primary Care Provider + Andrew Kinsey MD Unavailable [phone] Maxwell Sosa MD Unavailable [phone] Allergies Active Allergy Reactions Criticality Noted Date Comments Adhesive Rash Medium 06/16/2010 Avocado Other (See comments) Low 06/16/2010 Bacitracin Benzalkonium Gramicidin D Hydrocortisone Latex Rash Medium 08/11/2010 Rash and sores after latex exposure,gloves,ba ndages Other reaction(s): Other (See Comments) Neomycin Ggsvirlj-Aixctgczoy-Bmcdh yxin Other (See comments),Unknown,R luisa Medium 06/16/2010 Niacin Unknown 03/18/2012 Polymyxin B Skin Cleanser Sulfa (Sulfonamide Antibiotics) Anaphylaxis,Angioed bren,Unknown High 08/11/2006 Medications aspirin 81 mg enteric coated tablet Take 2 tablets (162 mg total) by mouth daily 7 Active folic acid (FOLVITE) 400 mcg tablet 7 Active polyethylene glycol (MIRALAX) 17 gram packet Take 1 packet (17 g total) by mouth daily 100 packet 3 2 Active silver sulfadiazine (SILVADENE, SSD) 1 % cream Apply topically daily Active ondansetron (ZOFRAN) 4 mg tablet Take 1 tablet (4 mg total) by mouth 4 Active fluticasone propionate (FLONASE) 50 mcg/actuation nasal spray Administer 100 mcg into affected nostril(s) 4 Active amLODIPine (NORVASC) 5 mg tablet Take [...] 180 tablet 3 4 07/21/20 25 Active hydroxychloroqui ne (PLAQUENIL) 200 mg tablet Take 1 tablet [...] 10/10/19 26 Active empagliflozin (JARDIANCE) 10 mg tabletIndication s:Heart Failure Take 1 tablet (10 mg total) by mouth daily 90 tablet 3 5 11/10/19 26 Active losartan (COZAAR) 25 mg tablet Take 1 tablet (25 mg total) by mouth daily 90 tablet 3 5 11/10/19 26 Active diclofenac sodium (VOLTAREN) 1 % gel Apply 2 g topically 4 (four) times a day Apply to arthritis joints PRN 100 g 1 5 Active acetaminophen (TYLENOL) 500 mg tablet Take 2 tablets (1,000 mg total) by mouth every 6 (six) hours as needed for pain Please give prior to infusion 540 tablet 1 5 Active simethicone (MYLICON) 125 mg chewable tablet Take 1 tablet (125 mg total) by mouth every 6 (six) hours as needed for flatulence 120 tablet 11 5 02/28/20 26 Active furosemide (LASIX) 40 mg tablet Take 1 tablet (40 mg total) by mouth every other day 45 tablet 3 5 Active omeprazole (PriLOSEC) 40 mg capsule Take 1 capsule (40 mg total) by mouth daily 90 capsule 3 5 Active metoprolol tartrate (LOPRESSOR) 25 mg immediate release tablet Take 1 tablet (25 mg total) by mouth 2 (two) times a day 180 tablet 3 5 05/18/20 26 Active isosorbide mononitrate ER (IMDUR) 60 mg 24 hr tablet Take 1 tablet (60 mg total) by mouth 2 (two) times a day 180 tablet 3 5 05/18/20 26 Active meclizine (ANTIVERT) 12.5 mg tabletIndication s:Vertigo Take 1 tablet (12.5 mg total) by mouth 3 (three) times a day as needed for dizziness 90 tablet 4 5 Active traMADoL (ULTRAM) 50 mg tablet Take 0.5-1 tablets (25-50 mg total) by mouth every 6 (six) hours as needed for pain for up to 7 days 28 tablet 3 5 Active HYDROcodone-acet aminophen (NORCO) 5-325 mg per tabletIndication s:Pain Take 1-2 tablets by mouth every 4 (four) hours as needed for pain for up to 7 days 80 tablet 5 07/17/20 25 Active naloxone (NARCAN) 4 mg/actuation spray,non-aeroso l Administer 1 spray into affected nostril(s) as needed for opioid reversal or respiratory depression Call 911. Administer a single spray in one nostril. Repeat every 3 minutes as needed if no or minimal response. 1 each 1 5 Active Hospital, Clinic, or Other Facility Administered Medication Ordered Dose Route Frequency Start Date End Date Status talimogene laherparepvec (IMLYGIC) 10exp8 (100 million) PFU/mL injection 1 mLIndications:malignan t melanoma 1 mL lesion Every 2 weeks 07/09/2025 12/23/2025 Active Active Problems Problem Noted Date Diagnosed Date Squamous cell carcinoma of leg, left 06/05/2025 Age-related osteoporosis wit hout current pathological fracture 02/11/2025 Retinal artery branch occlusion of right eye 12/2023 Assessment & Plan (04/04/2025 1:33 PM CDT): Mac OCT OD flat DFE next visit Assessment & Plan (09/21/2024 1:12 PM TAR POT MAN): Retinal edema resolved, no neovascularization elsewhere (NVE) seen, residual retinal atrophy left eye (OS) Monitor - fu 6 months mac oct both eyes (OU) Assessment & Plan (08/16/2024 3:46 PM TAR POT MAN): Retinal edema with acute painless onset of scotoma x 1week from artery occlusion confirmed on oct, and optos. FOL symptoms and persistent scotoma are not C/w migrainous aura. Pt denies GCA symptoms of weight loss, diplopia, scalp tenderness, and myalgias. 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 Refer [...] 07/31/2020 Assessment & Plan (11/20/2020 5:10 PM TAR POT MAN): PCO OU S/p YAG OU OD doing well OS with central floater improving Will not plan on YAGing given do not want to increase floaters Monitor in 4 months, sooner for concerns Assessment & Plan (10/09/2020 2:00 PM TAR POT MAN): PCO OU S/p YAG OU OD doing [...] plan Assessment & Plan (09/11/2020 5:28 PM TAR POT MAN): S/p YAG OU OD clear and improved OS with tag of PCO left Plan touch up YAG OS today Follow 4 weeks, back to [facility] after this Assessment & Plan (07/31/2020 1:05 PM TAR POT MAN): PCO OU Plan for YAG OU today Follow 4 weeks Physical exam 07/25/2020 Coronary artery disease invo lving [place] heart without angina pectoris 07/25/2020 Vitamin B12 deficiency 07/25/2020 Vitamin D deficiency 07/25/2020 Hyperparathyroidism 07/25/2020 Choroidal nevus, both eyes 06/05/2020 Assessment & Plan (08/16/2024 3:38 PM TAR POT MAN): Flat, no concerning features, Monitor Assessment & Plan (01/26/2024 2:18 PM CDT): DFE with Dr. Quezada in 6 months Assessment & Plan (02/04/2022 1:37 PM CDT): Stable on DFE today Monitor annually Assessment & Plan (07/31/2020 1:06 PM TAR POT MAN): Following on DFEs with Dr. Meehan Pseudophakia, both eyes 06/05/2020 Assessment & Plan (05/11/2022 4:40 PM CDT): Lenses centered and stable, monitor Assessment & Plan (02/04/2022 1:38 PM CDT): Doing well without concerns Needs new Rx IOP check and Rx with Dr. Quezada, to me 1 year for DFE/HVF/OCT Assessment & Plan (08/06/2021 1:11 PM TAR POT MAN): Stable both eyes Assessment & Plan (03/26/2021 [...] of both eyes 05/26/2018 Assessment & Plan (04/04/2025 1:33 PM CDT): G/S OU Denies concerns IOP at goal HVF OU stable OCT OU stable Assessment & Plan (09/21/2024 1:53 PM TAR POT MAN): Excellent intraocular pressure (IOP) both eyes (OU) FU Dr De La Torre as scheduled Assessment & Plan (08/16/2024 3:38 PM TAR POT MAN): G/S OU IOP at goal Follow 1 year with Britt for testing Assessment & Plan (01/26/2024 2:17 PM CDT): G/S OU IOP at goal HVF OU wnl OCT OU wnl Follow 1 year with Britt for testing Assessment & Plan (08/11/2023 9:35 PM TAR POT MAN): Doing well IOP At goal CPM Follow [...] concerns Assessment & Plan (08/06/2021 1:11 PM TAR POT MAN): IOP at goal OU Doing well with no concerns HVF stable and full OCT wnl Follow 6 months with DFE Assessment & Plan (03/26/2021 11:57 AM CDT): Glaucoma suspect both eyes IOP at goal Follow 6 months with HVF/OCT, sooner for concerns Assessment & Plan (07/31/2020 1:06 PM TAR POT MAN): Low risk Normal IOP, borderline cupping Continue with Dr. Meehan High risk medication use 05/26/2018 Assessment & Plan (08/16/2024 3:42 PM TAR POT MAN): Normal OCT both eyes (OU) FU for mac oct 6 months /10-2 Assessment & Plan (01/26/2024 2:18 PM CDT): [...] Encounters Date Type Department Care Team Description 07/16/2025 Telephone [facility] [address] [facility] Advanced Medicine 5th [place] [address] Genevieve Dillon 07/16/2025 Orders Only [facility] [address] [facility] Advanced [facility] 5th [place] [address] Sarbjit Miller MD 07/16/2025 Telephone [facility] Medicine 5th [place] [address] [place] [address] Gavin Peyton 07/12/2025 Telephone [facility] Otolaryngology [address] [place] [address] Bhavana Clayton MS 07/11/2025 Telephone [facility] Home Care Services [address] [facility] [address] [place] [phone] Marcella Singer, RN 07/11/2025 Telephone [facility] Home Care Services [address] [facility] [address] [place] [phone] Marcella Singer, RN 07/11/2025 Telephone [facility] Home Care Services [address] [facility] [address] [place] [phone] Marcella Singer, RN 07/11/2025 Telephone [facility] [address] [facility] 5th [place] [address] [place] [address] Genevieve Dillon 07/11/2025 Telephone [facility] Home Care Services [address] [facility] [address] [place] [phone] Marcella Singer, RN 07/10/2025 2:34 PM CDT - 07/10/2025 11:59 PM CDT Hospital Encounter [facility] - Imaging [address] [place] [phone] Severe lumbar pain Discharge Disposition: Discharge to home or self care 07/10/2025 2:34 PM CDT - 07/10/2025 11:59 PM CDT Hospital Encounter [facility] - Imaging [address] [place] [phone] Severe lumbar pain Discharge Disposition: Discharge to home or self care 07/10/2025 2:32 PM CDT - 07/10/2025 11:59 PM CDT Hospital Encounter [facility] - Imaging [address] [place] [phone] Severe lumbar pain Discharge Disposition: Discharge to home or self care 07/10/2025 12:00 PM CDT Office Visit [facility] [address] [facility] 5th [place] [address] Sarbjit Miller MD Severe lumbar pain (Primary Dx); Closed fracture of sacrum, unspecified portion of sacrum, initial encounter ([facility]) 07/10/2025 Results Follow-Up [facility] [address] [facility] 5th [place] [address] Sarbjit Miller MD MRI Hip Left WO Contrast, MRI Lumbar Spine WO Contrast, MRI Pelvis WO Contrast 07/10/2025 Orders Only [facility] Medicine Oncology [facility] Floor 6 [place] [address] Maxwell Sosa MD Squamous cell carcinoma of leg, left (Primary Dx) 07/09/2025 2:30 PM CDT Infusion [facility] Infusion [address] [facility] Floor 6 [place] [address] Squamous cell carcinoma of leg, left (Primary Dx) 07/09/2025 1:30 PM CDT Lab [facility] - Lab Collection [address] [facility] Floor 6 [place] [address] Squamous cell carcinoma of leg, left 07/09/2025 Telephone [facility] [address] [place] [address] Wilma Genevieve Bertha 07/04/2025 Orders Only [facility] Medicine Oncology [facility] [address] [phone] Maxwell Sosa MD 07/02/2025 6:15 PM CDT - 07/02/2025 9:55 PM CDT Emergency [facility] Emergency Department 1 [place] [phone] Jax Lowe MD Left hip pain (Primary Dx); 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 Floor 6 [place] [address] Roman Chambers MD PhD Squamous cell carcinoma of leg, left (Primary Dx); Acneiform eruption 07/02/2025 Orders Only [facility] Medicine Oncology [facility] Floor 6 [place] [address] Maxwell Sosa MD Squamous cell carcinoma of leg, left (Primary Dx) 06/25/2025 2:30 PM CDT Infusion [facility] Infusion [address] [place] [address] Floor 6 [place] [address] Squamous cell carcinoma of leg, left (Primary Dx) 06/25/2025 1:30 PM CDT Lab [facility] - Lab Collection [facility] 6 [place] [address] Squamous cell carcinoma of leg, left 06/18/2025 1:00 PM CDT Infusion [facility] Infusion [address] [place] [address] Floor 6 [place] [address] Squamous cell carcinoma of leg, left (Primary Dx) 06/18/2025 12:00 PM CDT Lab [facility] - Lab Collection [address] [place] [address] Floor 6 [place] [address] Squamous cell carcinoma of leg, left 06/18/2025 Telephone [facility] Medicine Bone Marrow Transplant [address] [facility] Floor 6 [place] [address] Laura Fairchild, ANGELES 06/18/2025 Telephone [facility] 5th [place] [address] [place] [address] Peyton Alonso 06/18/2025 Orders Only [facility] Medicine Bone Marrow Transplant [facility] Floor 6 [place] [address] Maxwell Sosa MD Squamous cell carcinoma of leg, left (Primary Dx) 06/15/2025 8:48 AM CDT - 06/15/2025 11:59 PM CDT Hospital Encounter [facility] [address] [facility] Floor 8 [place] [address] Discharge Disposition: Discharge to home or self care 06/15/2025 8:47 AM CDT - 06/15/2025 11:59 PM CDT Hospital Encounter [facility] - PET [address] [facility] Floor 8 [place] [address] Squamous cell carcinoma of leg, left Discharge Disposition: Discharge to home or self care 06/12/2025 [facility] [address] [place] [address] Outpatient Health [address] [place] [phone] Liz See LPN PT DOES NOT QUALIFY FOR THE IMLYGIC PROGRAM THRU AMGEN 06/12/2025 Orders Only [facility] Dermatology [address] [place] [address] Outpatient Health [address] [place] [phone] Lzi See LPN Squamous cell carcinoma of leg, left (Primary Dx) 06/11/2025 3:15 PM CDT Office [facility] [address] [place] [address] Outpatient Health [address] [place] [phone] Roman Chambers MD PhD Squamous cell carcinoma of left lower leg (Primary Dx) 06/06/2025 Telephone [facility] [address] [place] [address] Outpatient Health [address] [place] [phone] Roman Chambers MD PhD Imlygic:SCC of leg 06/05/2025 8:00 AM CDT [facility] [address] [facility] [address] [place] [phone] Maxwell Sosa MD Squamous cell carcinoma of leg, left (Primary Dx) 05/30/2025 1:45 PM CDT Ancillary Procedure [facility] [place] [facility] [address] [place] [address] 8th [place] [phone] Left leg swelling 05/30/2025 8:00 AM CDT Ancillary Procedure [facility] [address] [facility] [address] [place] [phone] Postural dizziness with presyncope; Vertigo 05/29/2025 3:36 PM CDT - 05/29/2025 11:59 PM CDT Hospital Encounter [address] [address] Postural dizziness with presyncope; Vertigo Discharge Disposition: Discharge to home or self care 05/29/2025 1:30 PM CDT Office Visit [facility] 5th [place] [address] Sarbjit Miller MD Postural dizziness with presyncope (Primary Dx); Vertigo; Flu vaccine need; Left leg swelling 05/29/2025 Results Follow-Up [facility] [address] [place] [address] [place] [address] Sarbjit Miller MD Influenza A/B, RSV, and COVID-19 PCR Nasopharyngeal, US Vein Duplex Lower Extremity Bilateral Complete, Basic metabolic panel, Additional followed-up results: 6 05/28/2025 Orders Only [facility] Medicine Dermatology [address] [place] [address] [address] [place] [phone] Andrew Kinsey MD Squamous cell carcinoma of left lower leg (Primary Dx) 05/28/2025 Telephone [facility] 5th [place] [address] Genevieve iDllon 05/23/2025 12:30 PM CDT Office Visit [facility] Dermatology [address] [place] [address] [address] [place] [phone] Andrew Kinsey MD Squamous cell carcinoma of left lower leg (Primary Dx) 05/18/2025 Telephone [facility] 5th [place] [address] Sarbjit Tavarez MBA Refill Request 05/16/2025 Orders Only [facility] Medicine Pathology Outreach [address] [place] [address] Alysha Rodgers MD 05/08/2025 Orders Only [facility] Scanning, Provider 05/08/2025 Orders Only [facility] Medicine Pathology Outreach [address] [place] [address] Alysha Rodgers MD 04/27/2025 Telephone [facility] [address] [facility] Advanced Medicine 5th [place] [address] Peyton Alonso 04/18/2025 Results Follow-Up [facility] [address] [facility] 5th [place] [address] Sarbjit Miller MD Screening Mammogram Bilateral W Janusz 04/16/2025 9:50 AM CDT - 04/16/2025 11:59 PM CDT Hospital Encounter [facility] Advanced [facility] Breast [facility] Advanced Medicine ([facility]) [address] [place] [phone] Screening mammogram, encounter for Discharge Disposition: Discharge to home or self care from Last 3 Months Immunizations Immunization Administration Dates Next Due Influenza, Quadrivalent, Hig h Dose, Preservative Free, Intrr 06/11/2020 Influenza, Unspecified 06/15/2025,06/12/2020,09/2015 Moderna SARS-CoV-2 Monovalen t Vaccination (12+ YRS) 11/11/2020,10/14/2020 Pneumococcal Polysaccharide PPV23 06/13/2016 Tdap 10/11/2021 ZOSTER Recombinant 05/24/2019,03/13/2019 Surgical History Surgery Date Site/Laterality Comments WI AMPUTATION LEG THROUGH TIBIA&FIBULA Amputation Of Leg Below Knee - (Added by TW Conv) WI TEAEC W/PATCH GRF CAROTID VERTB SUBCLAV NECK INC Carotid Thromboendarterectomy - left, along with CABG, 2013 (Added by TW Conv) CHOLECYSTECTOMY CATARACT EXTRACTION W/ INTRAOCULAR LENS IMPLANT 09/13/2016 - 09/12/[address] Balderrama CORONARY ARTERY BYPASS GRAFT CAROTID ENARTERECTOMYY EYE SURGERY 07/31/2020 Bilateral Yag Cap for PCO (Dr. De La Torre) BREAST BIOPSY Right BENIGN EXCISIONAL BIOPSIES Medical History Medical History Date Comments Hypertension Hypertension Peripheral vascular disease Agueda pheral vascular disease Personal history of other di seases of the circulatory system History of hypertension - (A dded by TW Conv) Personal history of other en docrine, [...] Colon cancer - (Added by TW Conv) Migraines Mother Uterine cancer Mother Family histor y of malignant neoplasm of uterus - (Added by TW Conv) Stroke Other Stroke Syndrome - (Added by Conv) Blindness Neg Hx Diabetes Neg Hx Glaucoma Neg Hx Macular degeneration Neg Hx Relation Name Status Comments Brother Father Mother Other Social History Tobacco Use Types Packs/Day Years Used Date Smoking Tobacco: Former Cigarettes Q uit: 1976 Smokeless Tobacco: Never Tobacco Cessation:Counseling Given: Not Answered Alcohol Use Standard Drinks/Week Comments No 0 (1 standard drink = 0.6 oz pur e alcohol) [facility] Utilities Answer Date Recorded In the past 12 months has e electric, gas, oil, or water Airtime threatened to shut off services in your home? No 02/08/2025 Social Connection and Isolation Panel Answer Date Recorded In a typical week, how many times do you talk on the phone with family, friends, or neighbors? Twice a week 02/08/2025 How often do you get togethe r with friends or relatives? Once a week 02/08/2025 How often do you attend jainism or advent serv ices? Patient declined 02/08/2025 Do you belong to any clubs o r organizations such as jainism groups, unions, fraternal or athletic groups, or [...] Recorded Patient Health Questionnaire-2 Score 0 02/08/2025 [facility] - Occupational Stress [...] any time in the past 12 m [facility], were you homeless or living in a alf (including now)? No 02/08/2025 Personal Safety Answer Date Recorded Have you ever been in or are you currently in a harmful physical or emotional relationship or is someone making you feel afraid or unsafe? Denies 07/02/2025 Comments No Sex and Gender Information Value Date Recorded Sex Assigned at Not on file Legal Sex Female 1:59 AM TAR POT MAN Gender Identity Female 03/21/2024 3:36 PM CDT Sexual Orientation Straight 03/21/2024 3: 36 PM CDT Occupation Industry Job Start Date Job End Date RETIRED Not on file Not on file Not on file Obstetrics History Para Term AB IAB SAB Ectopic Multiple Livin g Live Births 2 2 Date Outcome GA Total Labor Labor/2nd/3rd Weight Sex Type Anes PTL Lizzette A1 A5 Name Clin Last Filed Vital Signs Vital Sign Reading Time Taken Comments Blood Pressure 152/73 07/09/2025 2:38 PM CDT Pulse 67 07/09/2025 2:38 PM CDT Temperature 36.8 C (98.2 F) 07/09/2025 2:38 PM CDT Respiratory Rate 20 07/09/2025 2:38 PM CDT Oxygen Saturation 96% 07/09/2025 2:38 PM CDT Inhaled Oxygen Concentration - - Weight 82.6 kg (182 lb) 07/09/2025 2:53 PM CDT Height 160 cm (5' 3) 07/02/2025 3:13 PM CDT Body Mass Index 32.24 07/02/2025 3:13 PM CDT Plan of Treatment Health Maintenance Due Date Last Done Comments Hepatitis C Screening 1945 Hepatitis B Screening 1963 Well Visit 65+ 2011 Pneumococcal vaccine 65+ (2 of 2 - PCV) 06/13/2017 06/13/2016 Covid-19 Vaccine (3 - Modern a risk series) 12/09/2020 11/11/2020, 10/14/2020 Fall Risk Assessment 08/17/2025 08/17/2024 Depression Screening 02/08/2026 02/08/2025, 08/16/20 24 Osteoporosis Screening-Bone Density Scan 01/31/2027 01/31/2025 DTaP/Tdap/Td Vaccine (2 - Td or Tdap) 10/11/2031 10/11/2021 Zoster Vaccine Completed 05/24/2019, 03/13/2019 Breast Cancer Screening-Mammogram Discontinued 04/16/2025, 04/14/2024, 04/13/2023, Additional history exists Influenza Vaccine Completed 06/15/2025, , 06/11/2020, Additional history exists Procedures Procedure Name Priority Date/Time Associated Diagnosis Comments MRI PELVIS WO CONTRAST Schedule Routine, Read Routine (OP Routine) 07/10/2025 3:51 PM CDT Severe lumbar pain MRI HIP LEFT WO CONTRAST Schedule Routine, Read Routine (OP Routine) 07/10/2025 3:33 PM CDT Severe lumbar pain MRI LUMBAR SPINE WO CONTRAST Schedule Routine, Read Routine (OP Routine) 07/10/2025 3:33 PM CDT Severe lumbar pain EGFR STAT 07/09/2025 2:17 PM CDT Squamous cell carcinoma of leg, left DIFFERENTIAL AUTO Routine 07/09/2025 2:1 7 PM CDT Squamous cell carcinoma of leg, left LACTATE DEHYDROGENASE Routine 07/09/2025 2:17 PM CDT Squamous cell carcinoma of leg, left THYROID FUNCTION CASCADE Routine 07/09/2025 2:17 PM CDT Squamous cell carcinoma of leg, left CBC WITH AUTO DIFFERENTIAL Routine 07/09/2025 2:17 PM CDT Squamous cell carcinoma of leg, left COMPREHENSIVE METABOLIC PANEL STAT 07/09/2025 2:17 PM CDT Squamous cell carcinoma of leg, left MAGNESIUM STAT 07/09/2025 2:17 PM CDT Squamous cell carcinoma of leg, left CT HIP LEFT WO CONTRAST ED 07/02/2025 7:[address] HEAD AND CERVICAL SPINE WO CONTRAST ED 07/02/2025 7:57 PM CDT XR CHEST PA LATERAL 2 VIEWS ED 07/02/2025 6:57 PM CDT XR HIPS BILATERAL W PELVIS 2 VIEW ED 07/02/2025 4:46 PM CDT XR KNEE LEFT 3 VIEWS ED 07/02/2025 4:46 PM CDT XR SHOULDER LEFT 2 OR MORE VIEWS ED 07/02/2025 4:46 PM CDT XR ANKLE LEFT 3 OR MORE VIEWS ED 07/02/2025 4:45 PM CDT XR HAND LEFT 3 OR MORE VIEWS ED 07/02/2025 4:45 PM CDT EGFR STAT 07/02/2025 1:50 PM CDT Squamous cell carcinoma of leg, left DIFFERENTIAL AUTO Routine 07/02/2025 1:5 0 PM CDT Squamous cell carcinoma of leg, left LACTATE DEHYDROGENASE Routine 07/02/2025 1:50 PM CDT Squamous cell carcinoma of leg, left THYROID FUNCTION CASCADE Routine 07/02/2025 1:50 PM CDT Squamous cell carcinoma of leg, left CBC WITH AUTO DIFFERENTIAL Routine 07/02/2025 1:50 PM CDT Squamous cell carcinoma of leg, left COMPREHENSIVE METABOLIC PANEL STAT 07/02/2025 1:50 PM CDT Squamous cell carcinoma of leg, left MAGNESIUM STAT 07/02/2025 1:50 PM CDT Squamous cell carcinoma of leg, left EGFR STAT 06/25/2025 1:10 PM CDT Squamous cell carcinoma of leg, left DIFFERENTIAL AUTO Routine 06/25/2025 1:1 0 PM CDT Squamous cell carcinoma of leg, left LACTATE DEHYDROGENASE Routine 06/25/2025 1:10 PM CDT Squamous cell carcinoma of leg, left THYROID FUNCTION CASCADE Routine 06/25/2025 1:10 PM CDT Squamous cell carcinoma of leg, left CBC WITH AUTO DIFFERENTIAL Routine 06/25/2025 1:10 PM CDT Squamous cell carcinoma of leg, left MAGNESIUM STAT 06/25/2025 1:10 PM CDT Squamous cell carcinoma of leg, left COMPREHENSIVE METABOLIC PANEL STAT 06/25/2025 1:10 PM CDT Squamous cell carcinoma of leg, left DIFFERENTIAL AUTO Routine 06/18/2025 11: 57 AM CDT Squamous cell carcinoma of leg, left CBC WITH AUTO DIFFERENTIAL Routine 06/18/2025 11:57 AM CDT Squamous cell carcinoma of leg, left EGFR STAT 06/18/2025 11:51 AM CDT Squamous cell carcinoma of leg, left LACTATE DEHYDROGENASE Routine 06/18/2025 11:51 AM CDT Squamous cell carcinoma of leg, left THYROID FUNCTION CASCADE Routine 06/18/2025 11:51 AM CDT Squamous cell carcinoma of leg, left COMPREHENSIVE METABOLIC PANEL STAT 06/18/2025 11:51 AM CDT Squamous cell carcinoma of leg, left MAGNESIUM STAT 06/18/2025 11:51 AM CDT Squamous cell carcinoma of leg, left PET/CT FDG WHOLE BODY Schedule Routine, Read Routine (OP Routine) 06/15/2025 12:27 PM CDT Squamous cell carcinoma of leg, left ALEXUS CASAS CANCER SEEK + ADDITIONAL TESTS Routine 06/05/2025 10:52 AM CDT Squamous cell carcinoma of leg, left US VEIN DUPLEX LOWER EXTREMITY BILATERAL COMPLETE Schedule PARK, Read PARK (Appt Today, Awaiting Results) 05/30/2025 2:04 PM CDT Left leg swelling ECG 12-LEAD Routine 05/30/2025 9:35 AM CDT Postural dizziness with presyncope MCT - MOBILE CARDIAC TELEMETRY EVENT MONITOR Routine 05/30/2025 8:34 AM CDT Postural dizziness with presyncope Vertigo INFLUENZA A/B, RSV, AND COVID-19 PCR Routine 05/29/2025 3:38 PM CDT Postural dizziness with presyncope Vertigo EGFR Routine 05/29/2025 3:12 PM CDT Postural dizziness with presyncope DIFFERENTIAL AUTO Routine 05/29/2025 3:1 2 PM CDT Postural dizziness with presyncope TROPONIN I HIGH-SENSITIVITY Routine 05/29/2025 3:12 PM CDT Postural dizziness with presyncope Vertigo CBC WITH AUTO DIFFERENTIAL Routine 05/29/2025 3:12 PM CDT Postural dizziness with presyncope PRO B-TYPE NATRIURETIC PEPTIDE Routine 05/29/2025 3:12 PM CDT Postural dizziness with presyncope Vertigo BASIC METABOLIC PANEL Routine 05/29/2025 3:12 PM CDT Postural dizziness with presyncope SURGICAL PATHOLOGY Routine 05/16/2025 12 :45 PM CDT SCAN - PATHOLOGY 05/08/2025 SURGICAL PATHOLOGY Routine 05/08/2025 12 :00 AM CDT SCREENING MAMMOGRAM BILATERAL W JANUSZ Schedule Routine, Read Routine (OP Routine) 04/16/2025 10:11 AM CDT Screening mammogram, encounter for from Last 3 Months Results * MRI Pelvis WO Contrast (07/10/2025 3:51 PM CDT) Anatomical Region Laterality Modality Pelvis N/A Magnetic Resonan ce 07/10/2025 3:54 PM CDT Impressions 07/10/2025 3:54 PM CDT Acute nondisplaced fractures of the sacrum and pubic bones, as above. Electronically signed by: Fitz Regalado M.D. Narrative 07/10/2025 3:54 PM CDT MRI pelvis without contrast HISTORY: Pelvic pain. Fall. TECHNIQUE: MRI of the pelvis was done without contrast. FINDINGS: There are acute nondisplaced sacral fractures including a vertical component on the right and left side as well as transverse component through the midportion. There is acute nondisplaced fracture of the right and left pubic bone at the pubic symphysis. There is moderate degenerative arthritis of both hips and both sacroiliac joints. There is soft tissue swelling and muscular edema in the gluteal musculature and groin musculature on both sides. There is gluteal and hamstring tendinopathy bilaterally consistent with hip MRI study. Procedure Note Fitz Regalado MD - 07/10/2025 MRI pelvis without contrast HISTORY: Pelvic pain. Fall. TECHNIQUE: MRI of the pelvis was done without contrast. FINDINGS: There are acute nondisplaced sacral fractures including a vertical component on the right and left side as well as transverse component through the midportion. There is acute nondisplaced fracture of the right and left pubic bone at the pubic symphysis. There is moderate degenerative arthritis of both hips and both sacroiliac joints. There is soft tissue swelling and muscular edema in the gluteal musculature and groin musculature on both sides. There is gluteal and hamstring tendinopathy bilaterally consistent with hip MRI study. IMPRESSION: Acute nondisplaced fractures of the sacrum and pubic bones, as above. Electronically signed by: Fitz Regalado M.D. Sarbjit Miller MD [facility] [place] PROCEDURES Final Result * MRI Hip Left WO Contrast (07/10/2025 3:33 PM CDT) Anatomical Region Laterality Modality Lower Extremities Left Magnetic Reson ance 07/10/2025 3:38 PM CDT Impressions 07/10/2025 3:38 PM CDT 1. Acute nondisplaced fractures of the sacrum with vertical components on the right and left side and transverse component through the midportion. 2. Acute nondisplaced fracture of the right and left pubic bone at the pubic symphysis. 3. Moderate degenerative arthritis of the hips. 4. Gluteal and hamstring tendinopathy without tear. 5. Areas of muscular edema as above which may indicate myositis or muscle strain. 6. Additional details above. Electronically signed by: Fitz Regalado M.D. Narrative 07/10/2025 3:38 PM CDT MRI hip left without contrast HISTORY: Left hip pain. History of a fall. TECHNIQUE: MRI of the left hip was done without contrast. FINDINGS: Comparison CT images 07/02/2025. There is moderate degenerative arthritis of both hips. There is moderate insertional tendinopathy of the gluteus medius and minimus on both sides without tear. There is moderate common hamstring tendinopathy bilaterally without tear. There is moderate edema in the groin adductor musculature bilaterally consistent with strain. There is bone edema in the right and left pubic bone at the pubic symphysis with suspicion of nondisplaced fractures. There is bone edema throughout the right and left sacrum and also transversely through the sacrum consistent with nondisplaced sacral fractures. There is edema around the sacrum and in the gluteal musculature consistent with contusion or muscle strain. The urinary bladder appears normal. There is colonic diverticulosis. Procedure Note Fitz Regalado MD - 07/10/2025 MRI hip left without contrast HISTORY: Left hip pain. History of a fall. TECHNIQUE: MRI of the left hip was done without contrast. FINDINGS: Comparison CT images 07/02/2025. There is moderate degenerative arthritis of both hips. There is moderate insertional tendinopathy of the gluteus medius and minimus on both sides without tear. There is moderate common hamstring tendinopathy bilaterally without tear. There is moderate edema in the groin adductor musculature bilaterally consistent with strain. There is bone edema in the right and left pubic bone at the pubic symphysis with suspicion of nondisplaced fractures. There is bone edema throughout the right and left sacrum and also transversely through the sacrum consistent with nondisplaced sacral fractures. There is edema around the sacrum and in the gluteal musculature consistent with contusion or muscle strain. The urinary bladder appears normal. There is colonic diverticulosis. IMPRESSION: 1. Acute nondisplaced fractures of the sacrum with vertical components on the right and left side and transverse component through the midportion. 2. Acute nondisplaced fracture of the right and left pubic bone at the pubic symphysis. 3. Moderate degenerative arthritis of the hips. 4. Gluteal and hamstring tendinopathy without tear. 5. Areas of muscular edema as above which may indicate myositis or muscle strain. 6. Additional details above. Electronically signed by: Fitz Regalado M.D. Sarbjit Miller MD [facility] MRI PROCEDURES Final Result * MRI Lumbar Spine WO Contrast (07/10/2025 3:33 PM CDT) Anatomical Region Laterality Modality Spine N/A Magnetic Resonan ce 07/10/2025 3:45 PM CDT Impressions 07/10/2025 4:04 PM CDT Left worse than right sacral alar fracture, better seen on pelvic MRI. No high-grade spinal canal or neural foraminal stenosis of the lumbar spine. Dictated by: Mateo Restrepo MD The radiology attending physician has personally reviewed this study, and had reviewed and/or edited this written report and agrees with it. Electronically signed by: Yogesh Clark MD, PHD Narrative 07/10/2025 4:04 PM CDT EXAMINATION: Magnetic resonance imaging (MRI) of the lumbar spine without contrast HISTORY: Severe lumbar spine and sacral pain after fall TECHNIQUE: Multiplanar multi-weighted MRI of the lumbar spine was performed without intravenous contrast using the standard protocol. COMPARISON: Same day hip MRI, FDG PET/CT 06/15/2025 FINDINGS: Grade 1 anterolisthesis of L4 on L5. Vertebral bodies demonstrate normal signal intensity on all sequences. There is an area of marrow edema in the left worse than right hemisacrum with cortical buckling that is further assessed on same day hip MRI. There are no compression fractures. The conus medullaris terminates at the level of L1-L2. The distal spinal cord signal intensity is normal. There is multilevel degenerative disc and joint disease without high-grade spinal canal or neural foraminal stenosis; there is up to moderate spinal canal stenosis at L4-L5. Annular fissure at L3-L4 and L4-L5. Limited views of the abdomen and pelvis show no soft tissue abnormality. Moderate to severe fatty atrophy of the paraspinal muscles. Procedure Note Yogesh Clark MD PhD - 07/10/2025 EXAMINATION: Magnetic resonance imaging (MRI) of the lumbar spine without contrast HISTORY: Severe lumbar spine and sacral pain after fall TECHNIQUE: Multiplanar multi-weighted MRI of the lumbar spine was performed without intravenous contrast using the standard protocol. COMPARISON: Same day hip MRI, FDG PET/CT 06/15/2025 FINDINGS: Grade 1 anterolisthesis of L4 on L5. Vertebral bodies demonstrate normal signal intensity on all sequences. There is an area of marrow edema in the left worse than right hemisacrum with cortical buckling that is further assessed on same day hip MRI. There are no compression fractures. The conus medullaris terminates at the level of L1-L2. The distal spinal cord signal intensity is normal. There is multilevel degenerative disc and joint disease without high-grade spinal canal or neural foraminal stenosis; there is up to moderate spinal canal stenosis at L4-L5. Annular fissure at L3-L4 and L4-L5. Limited views of the abdomen and pelvis show no soft tissue abnormality. Moderate to severe fatty atrophy of the paraspinal muscles. IMPRESSION: Left worse than right sacral alar fracture, better seen on pelvic MRI. No high-grade spinal canal or neural foraminal stenosis of the lumbar spine. Dictated by: Mateo Restrepo MD The radiology attending physician has personally reviewed this study, and had reviewed and/or edited this written report and agrees with it. Electronically signed by: Yogesh Clark MD, PHD Sarbjit Miller MD IM[facility] MRI PROCEDURES Final Result * eGFR (07/09/2025 2:17 PM CDT) [facility] eGFR 74 >=60 mL/min/1. 73 m2 Comment: Interpretive Data Reference Interval Normal >/= 90 mL/min/1.73m2 Mildly decreased* 60 - 89 mL/min/1.73m2 Mildly to moderately decreased 45 - 59 mL/min/1.73m2 Moderately to severely decreased 30 - 44 mL/min/1.73m2 Severely decreased 15 - 29 mL/min/1.73m2 Kidney Failure < 15 mL/min/1.73m2 *Relative to young adult level Estimated glomerular filtration rate is determined by the 2020 CKD-EPI equation recommended by the National Kid[employer] (A Unifying Approach to GFR Estimation: Recommendations of the NKF-ASK Task Force on Reassessing the Inclusion of Race in Diagnosing Kidney Disease, JASN 2020). The CKD-EPI equation should not be used for patients with unstable renal function and has not been validated in children and those over 70. Current interpretive data was last reviewed 2021. Blood 07/09/2025 2:17 PM CDT 07/09/2025 2:24 PM CDT Maxwell Sosa MD LAB BLOOD ORDERABLES Final Res ult [facility] Department of Laboratories [place], [place] [id number] * (ABNORMAL) Differential, auto (07/09/2025 2:17 PM CDT) [facility] Neutrophil abs 5.81 1.50 - 6.50 K/cumm Comment:Testing performed by : [facility], [address] [place] [phone] Lymphocyte abs 0.71(L) 0.80 - 3.30 K/cumm [facility] Comment:Testing performed by : [facility], [address] [place] [phone] Monocyte abs 0.60 0.20 - 0.80 K/cumm [facility] Comment:Testing performed by : [facility], [address] [place] [phone] Eosinophil abs 0.17 0.00 - 0.50 K/cumm [facility] Comment:Testing performed by : [facility], [address] [place] [phone] Basophil abs 0.07 0.00 - 0.10 K/cumm [facility] Comment:Testing performed by : [facility], [address] [place] [phone] Neutrophil pct 79.0 % [facility] Comment: Interpretive Data Percent cell count reference ranges are not reported, since discordance with absolute values may lead to misinterpretation of CBC data. Current Interpretive Data was last revised on 2017. Testing performed by: [facility], [address] [place] [phone] Lymphocyte pct 9.7 % [facility] Comment: Interpretive Data Percent cell count reference ranges are not reported, since discordance with absolute values may lead to misinterpretation of CBC data. Current Interpretive Data was last revised on 2017. Testing performed by: [facility], [address] [place] [phone] Monocyte pct 8.1 % [facility] Comment: Interpretive Data Percent cell count reference ranges are not reported, since discordance with absolute values may lead to misinterpretation of CBC data. Current Interpretive Data was last revised on 2017. Testing performed by: [facility], [address] [place] [phone] Eosinophil pct 2.3 % [facility] Comment: Interpretive Data Percent cell count reference ranges are not reported, since discordance with absolute values may lead to misinterpretation of CBC data. Current Interpretive Data was last revised on 2017. Testing performed by: [facility], [address] [place] [phone] Basophil pct 0.9 % [facility] Comment: Interpretive Data Percent cell count reference ranges are not reported, since discordance with absolute values may lead to misinterpretation of CBC data. Current Interpretive Data was last revised on 2017. Testing performed by: [facility], [address] [place] [phone] Blood 07/09/2025 2:17 PM CDT 07/09/2025 2:21 PM CDT Maxwell Sosa MD LAB BLOOD ORDERABLES Final Res ult Performing Organization Address City/[facility]/ZIP Co de Phone Number [facility] Department [place] [address] * Thyroid Function [place] (07/09/2025 2:17 PM CDT) Pathologist [facility] TSH 1.67 0.30 - 4.20 mcIUnit/mL Blood 07/09/2025 2:17 PM CDT 07/09/2025 2:24 PM CDT Maxwell Sosa MD LAB BLOOD ORDERABLES Final Res ult Performing Organization Address [facility] de Phone Number [facility] Department [place] [address] * (ABNORMAL) CBC with auto differential (07/09/2025 2:17 PM CDT) Pathologist [facility] WBC 7.36 3.80 - 9.90 K/cumm Comment:Testing performed by : [facility], [address] [place] [phone] Hgb 11.8(L) 11.9 - 15.5 g/dL [facility] Comment:Testing performed by : [facility], [address] [place] [phone] Hct 34.7(L) 35.6 - 45.5 % [facility] Comment:Testing performed by : [facility], [address] [place] [phone] Plt 216 150 - 400 K/cumm [facility] Comment:Testing performed by : [facility], [address] [place] [phone] MPV 6.1(L) 6.8 - 10.4 fL DEVIN [facility] Comment:Testing performed by : [facility], [address] [place] [address] RBC 3.74(L) 3.90 - 5.20 M/cumm [facility] Comment:Testing performed by : [facility], [address] [place], [place] [phone] MCV 92.7 81.3 - 96.4 fL DEVIN [facility] Comment:Testing performed by : [facility], [address] [place], [place] [phone] MCH 31.6 27.1 - 33.3 pg DEVIN [facility] Comment:Testing performed by : [facility], [address] [place], [place] [phone] MCHC 34.0 32.3 - 35.7 g/dL [facility] Comment:Testing performed by : [facility], [address] [place] [address] RDW CV 15.1(H) 11.1 - 14.9 % DEVIN [facility] Comment:Testing performed by : [facility], [address] [place] [address] NRBC abs 0.00 0.00 - 0.01 K/cumm DEVIN [facility] Comment:Testing performed by : [facility], [address] [place] [address] Blood 07/09/2025 2:17 PM CDT 07/09/2025 2:21 PM CDT us Maxwell Sosa MD LAB BLOOD ORDERABLES Final Res ult DEVIN [facility] Department [place] [address] * Magnesium (07/09/2025 2:17 PM CDT) Magnesium 1.8 1.4 - 2.5 mg/dL Blood 07/09/2025 2:17 PM CDT 07/09/2025 2:24 PM CDT Maxwell Sosa MD LAB BLOOD ORDERABLES Final Res ult [facility] [place] [address] * (ABNORMAL) Lactate dehydrogenase (LD) (07/09/2025 2:17 PM CDT) Pathologist [facility] Lactate dehydrogenase (LDH) 358(H) 100 - 250 Units/L Blood 07/09/2025 2:17 PM CDT 07/09/2025 2:24 PM CDT Maxwell Sosa MD LAB BLOOD ORDERABLES Final Res ult Performing Organization Address [facility] Co de Phone Number [facility] [place] [address] * (ABNORMAL) Comprehensive metabolic panel (07/09/2025 2:17 PM CDT) [facility] Sodium 143 135 - 145 mmol/L Potassium, pl 3.7 3.3 - 4.9 mmol/L [facility] Chloride 109 97 - 110 mmol/L [facility] CO2 24 22 - 32 mmol/L [facility] Anion gap 10 2 - 15 mmol/L [facility] BUN 12 6 - 25 mg/dL [facility] Creatinine 0.81 0.60 - 1.10 mg/dL [facility] Glucose 117 70 - 199 mg/dL [facility] Comment: Interpretive Data Fasting glucose >/= 126 mg/dl is diagnostic for diabetes. Fasting is defined as no caloric intake for at least 8 hours. Fasting glucose between 100 mg/dl to 125 mg/dl is diagnostic of prediabetes. In a patient with classic symptoms of hyperglycemia or hyperglycemic crisis, a random glucose >/= 200 mg/dl is diagnostic for diabetes. In the absence of unequivocal hyperglycemia, results should be confirmed by repeat testing. The classification and Diagnosis of Diabetes Diabetes Care 202; 46: S19-S40. Current interpretive data was last revised 2022. Calcium 8.8 8.5 - 10.3 mg/dL [facility] Bilirubin, total 1.1 0.1 - 1.2 mg/dL [facility] Protein, pl 6.6 6.5 - 8.5 g/dL [facility] Albumin 3.4(L) 3.5 - 5.0 g/dL [facility] Alk phos 84 40 - 130 Units/L [facility] ALT 19 7 - 45 Units/L [facility] AST 24 10 - 45 Units/L [facility] Blood 07/09/2025 2:17 PM CDT 07/09/2025 2:24 PM CDT Maxwell Sosa MD LAB BLOOD ORDERABLES Final Res ult [facility] Department [place] [address] * CT Head and Cervical Spine WO Contrast (07/02/2025 7:57 PM CDT) Anatomical Region Laterality Modality Head and Neck N/A Computed Tomogra phy 07/02/2025 8:19 PM CDT Impressions 07/03/2025 5:47 AM CDT 1. No acute intracranial process. Multiple chronic infarcts as above. 2. No evidence of acute fracture in the cervical spine. Dictated by: Giovanny Prince M.D. The radiology attending physician has personally reviewed this study, and had reviewed and/or edited this written report and agrees with it. Electronically signed by: Emmie Simpson MD Narrative 07/03/2025 5:47 AM CDT EXAMINATION: 1. CT head without contrast 2. CT of the cervical spine without contrast HISTORY: Fall TECHNIQUE: CT of the head was performed with images acquired from skull base to vertex without intravenous contrast. CT of the cervical spine was performed according to the standard protocol without intravenous contrast. COMPARISON: CTA head and neck dated 08/16/2024 FINDINGS: HEAD: There is no acute intracranial hemorrhage. Ventricles are of normal size and morphology. No mass effect or midline shift is present. 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 Bilateral lens replacements. The visualized portions of the mastoids are normal. The visualized portions of the paranasal sinuses are normal. No fractures are identified. CERVICAL SPINE: There is straightening of the cervical lordosis. There is no acute fracture. Vertebral bodies are normal in height without compression fractures. Mild intervertebral disc height loss is noted at C5-C6. The craniocervical junction is normal. No soft tissue abnormality is identified. Multilevel mild disc protrusions are noted from C4 to C7. There is moderate left greater than right facet arthropathy. There is mild uncovertebral joint disease. There is no high-grade neuroforaminal stenosis. There is no high-grade spinal canal stenosis. Procedure Note Emmie Simpson MD PhD - 07/03/2025 EXAMINATION: 1. CT head without contrast 2. CT of the cervical spine without contrast HISTORY: Fall TECHNIQUE: CT of the head was performed with images acquired from skull base to vertex without intravenous contrast. CT of the cervical spine was performed according to the standard protocol without intravenous contrast. COMPARISON: CTA head and neck dated 08/16/2024 FINDINGS: HEAD: There is no acute intracranial hemorrhage. Ventricles are of normal size and morphology. No mass effect or midline shift is present. 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 Bilateral lens replacements. The visualized portions of the mastoids are normal. The visualized portions of the paranasal sinuses are normal. No fractures are identified. CERVICAL SPINE: There is straightening of the cervical lordosis. There is no acute fracture. Vertebral bodies are normal in height without compression fractures. Mild intervertebral disc height loss is noted at C5-C6. The craniocervical junction is normal. No soft tissue abnormality is identified. Multilevel mild disc protrusions are noted from C4 to C7. There is moderate left greater than right facet arthropathy. There is mild uncovertebral joint disease. There is no high-grade neuroforaminal stenosis. There is no high-grade spinal canal stenosis. IMPRESSION: 1. No acute intracranial process. Multiple chronic infarcts as above. 2. No evidence of acute fracture in the cervical spine. Dictated by: Giovanny Prince M.D. The radiology attending physician has personally reviewed this study, and had reviewed and/or edited this written report and agrees with it. Electronically signed by: Emmie Simpson MD us Jax Lowe MD IM CT PROCEDURES Final Result * CT Hip Left WO Contrast (07/02/2025 7:57 PM CDT) Anatomical Region Laterality Modality Lower Extremities Left Computed Tomog odell 07/02/2025 8:54 PM CDT Impressions 07/03/2025 7:46 AM CDT 1. No acute traumatic findings in the pelvis. 2. Severe left and moderate right hip osteoarthritis. Dictated by: Giovanny Prince M.D. The radiology attending physician has personally reviewed this study, and had reviewed and/or edited this written report and agrees with it. Electronically signed by: Danyel Butcher M.D. Narrative 07/03/2025 7:46 AM CDT EXAMINATION: CT HIP LEFT WO CONTRAST HISTORY: 80-year-old woman, post fall with left hip pain. TECHNIQUE: Transaxial computed tomographic images of the pelvis were obtained without intravenous contrast according to the standard protocol. COMPARISON: Same day pelvis and bilateral hip radiographs FINDINGS: There is severe left and moderate right hip osteoarthritis. There is no acute fracture or dislocation, with evaluation for subtle nondisplaced fracture limited by osseous demineralization. Grade 2 anterolisthesis of L4 on L5 is noted. There are degenerative changes in the sacroiliac joints and imaged lumbar spine. The imaged pelvic and abdominal viscera are unremarkable apart from atherosclerotic calcification of the abdominal aorta and its branches. Procedure Note Danyel Butcher MD - 07/03/2025 EXAMINATION: CT HIP LEFT WO CONTRAST HISTORY: 80-year-old woman, post fall with left hip pain. TECHNIQUE: Transaxial computed tomographic images of the pelvis were obtained without intravenous contrast according to the standard protocol. COMPARISON: Same day pelvis and bilateral hip radiographs FINDINGS: There is severe left and moderate right hip osteoarthritis. There is no acute fracture or dislocation, with evaluation for subtle nondisplaced fracture limited by osseous demineralization. Grade 2 anterolisthesis of L4 on L5 is noted. There are degenerative changes in the sacroiliac joints and imaged lumbar spine. The imaged pelvic and abdominal viscera are unremarkable apart from atherosclerotic calcification of the abdominal aorta and its branches. IMPRESSION: 1. No acute traumatic findings in the pelvis. 2. Severe left and moderate right hip osteoarthritis. Dictated by: Giovanny Prince M.D. The radiology attending physician has personally reviewed this study, and had reviewed and/or edited this written report and agrees with it. Electronically signed by: Danyel Butcher M.D. Jax Lowe MD IM CT PROCEDURES Final Result * XR Chest PA Lateral 2 Views (07/02/2025 6:57 PM CDT) Anatomical Region Laterality Modality Body, Chest N/A Computed Radiogr aphy 07/02/2025 7:05 PM CDT Impressions 07/02/2025 7:17 PM CDT The current study is compared with the prior radiograph dated 10/10/2024. Patient is status post median sternotomy. Coronary artery bypass graft markers noted. Lungs are clear. No pulmonary consolidation, pleural effusion, or pneumothorax. There is elevation of the right hemidiaphragm. Stable cardiomediastinal silhouette. Dictated by: Fernando Keller M.D. The radiology attending physician has personally reviewed this study, and had reviewed and/or edited this written report and agrees with it. Electronically signed by: Jaqueline Rogers MD Narrative 07/02/2025 7:17 PM CDT EXAMINATION: 2 view chest radiograph Procedure Note Jaqueline Rogers MD - 07/02/2025 EXAMINATION: 2 view chest radiograph IMPRESSION: The current study is compared with the prior radiograph dated 10/10/2024. Patient is status post median sternotomy. Coronary artery bypass graft markers noted. Lungs are clear. No pulmonary consolidation, pleural effusion, or pneumothorax. There is elevation of the right hemidiaphragm. Stable cardiomediastinal silhouette. Dictated by: Fernando Keller M.D. The radiology attending physician has personally reviewed this study, and had reviewed and/or edited this written report and agrees with it. Electronically signed by: Jaqueline Rogers MD Jax Lowe MD IMG XR PROCEDURES Final Result * XR Hips Bilateral 2 Views W Pelvis (07/02/2025 4:46 PM CDT) Anatomical Region Laterality Modality Lower Extremities, Hip, Pelvis Bilateral C omputed Radiography 07/02/2025 5:07 PM CDT Impressions 07/02/2025 5:11 PM CDT FINDINGS/IMPRESSION: 3 views of the left knee demonstrate no acute fracture or dislocation. No left knee joint effusion. Surgical clips overlie the medial left knee soft tissues. Atherosclerotic vascular calcifications are noted. Pelvis and 2 views of the bilateral hips demonstrate no acute fracture or dislocation. Lower lumbar spine degenerative changes. 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 No acute fracture. Partially imaged median sternotomy wires. Dictated by: Raul Oswald M.D. The radiology attending physician has personally reviewed this study, and had reviewed and/or edited this written report and agrees with it. Electronically signed by: Jaqueline Rogers MD Narrative 07/02/2025 5:11 PM CDT EXAMINATION: XR KNEE LEFT 3 VIEWS, XR SHOULDER LEFT 2 OR MORE VIEWS, XR HIPS BILATERAL 2 VIEWS W PELVIS HISTORY: injury Procedure Note Jaqueline Rogers MD - 07/02/2025 EXAMINATION: XR KNEE LEFT 3 VIEWS, XR SHOULDER LEFT 2 OR MORE VIEWS, XR HIPS BILATERAL 2 VIEWS W PELVIS HISTORY: injury IMPRESSION: FINDINGS/IMPRESSION: 3 views of the left knee demonstrate no acute fracture or dislocation. No left knee joint effusion. Surgical clips overlie the medial left knee soft tissues. Atherosclerotic vascular calcifications are noted. Pelvis and 2 views of the bilateral hips demonstrate no acute fracture or dislocation. Lower lumbar spine degenerative changes. 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 No acute fracture. Partially imaged median sternotomy wires. Dictated by: Raul Oswald M.D. The radiology attending physician has personally reviewed this study, and had reviewed and/or edited this written report and agrees with it. Electronically signed by: Jaqueline Rogers MD us Tiffani Gutiérrez MD IMG XR PROCEDURES Final Result * XR Knee Left 3 Vw (07/02/2025 4:46 PM CDT) Anatomical Region Laterality Modality Lower Extremities, Knee Left Computed Radiography 07/02/2025 5:07 PM CDT Impressions 07/02/2025 5:11 PM CDT FINDINGS/IMPRESSION: 3 views of the left knee demonstrate no acute fracture or dislocation. No left knee joint effusion. Surgical clips overlie the medial left knee soft tissues. Atherosclerotic vascular calcifications are noted. Pelvis and 2 views of the bilateral hips demonstrate no acute fracture or dislocation. Lower lumbar spine degenerative changes. 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 No acute fracture. Partially imaged median sternotomy wires. Dictated by: Raul Oswald M.D. The radiology attending physician has personally reviewed this study, and had reviewed and/or edited this written report and agrees with it. Electronically signed by: Jaqueline Rogers MD Narrative 07/02/2025 5:11 PM CDT EXAMINATION: XR KNEE LEFT 3 VIEWS, XR SHOULDER LEFT 2 OR MORE VIEWS, XR HIPS BILATERAL 2 VIEWS W PELVIS HISTORY: injury Procedure Note Jaqueline Rogers MD - 07/02/2025 EXAMINATION: XR KNEE LEFT 3 VIEWS, XR SHOULDER LEFT 2 OR MORE VIEWS, XR HIPS BILATERAL 2 VIEWS W PELVIS HISTORY: injury IMPRESSION: FINDINGS/IMPRESSION: 3 views of the left knee demonstrate no acute fracture or dislocation. No left knee joint effusion. Surgical clips overlie the medial left knee soft tissues. Atherosclerotic vascular calcifications are noted. Pelvis and 2 views of the bilateral hips demonstrate no acute fracture or dislocation. Lower lumbar spine degenerative changes. 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 No acute fracture. Partially imaged median sternotomy wires. Dictated by: Raul Oswald M.D. The radiology attending physician has personally reviewed this study, and had reviewed and/or edited this written report and agrees with it. Electronically signed by: Jaqueline Rogers MD Jax Lowe MD IMG XR PROCEDURES Final Result * XR Shoulder Left 2+ views (07/02/2025 4:46 PM CDT) Anatomical Region Laterality Modality Upper Extremities, Shoulder Left Comp uted Radiography 07/02/2025 5:07 PM CDT Impressions 07/02/2025 5:11 PM CDT FINDINGS/IMPRESSION: 3 views of the left knee demonstrate no acute fracture or dislocation. No left knee joint effusion. Surgical clips overlie the medial left knee soft tissues. Atherosclerotic vascular calcifications are noted. Pelvis and 2 views of the bilateral hips demonstrate no acute fracture or dislocation. Lower lumbar spine degenerative changes. 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 No acute fracture. Partially imaged median sternotomy wires. Dictated by: Raul Oswald M.D. The radiology attending physician has personally reviewed this study, and had reviewed and/or edited this written report and agrees with it. Electronically signed by: Jaqueline Rogers MD Narrative 07/02/2025 5:11 PM CDT EXAMINATION: XR KNEE LEFT 3 VIEWS, XR SHOULDER LEFT 2 OR MORE VIEWS, XR HIPS BILATERAL 2 VIEWS W PELVIS HISTORY: injury Procedure Note Jaqueline Rogers MD - 07/02/2025 EXAMINATION: XR KNEE LEFT 3 VIEWS, XR SHOULDER LEFT 2 OR MORE VIEWS, XR HIPS BILATERAL 2 VIEWS W PELVIS HISTORY: injury IMPRESSION: FINDINGS/IMPRESSION: 3 views of the left knee demonstrate no acute fracture or dislocation. No left knee joint effusion. Surgical clips overlie the medial left knee soft tissues. Atherosclerotic vascular calcifications are noted. Pelvis and 2 views of the bilateral hips demonstrate no acute fracture or dislocation. Lower lumbar spine degenerative changes. 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 No acute fracture. Partially imaged median sternotomy wires. Dictated by: Raul Oswald M.D. The radiology attending physician has personally reviewed this study, and had reviewed and/or edited this written report and agrees with it. Electronically signed by: Jaqueline Rogers MD us Jax Lowe MD IMG XR PROCEDURES Final Result * XR Ankle Left 3+ views (07/02/2025 4:45 PM CDT) Anatomical Region Laterality Modality Lower Extremities, Ankle Left Compute d Radiography 07/02/2025 5:06 PM CDT Impressions 07/02/2025 5:09 PM CDT FINDINGS/IMPRESSION: 3 views of the left ankle demonstrate no acute fracture or dislocation. Talar dome is intact. Surgical clips overlie the soft tissue medial to the tibia. Achilles enthesophyte and calcaneal spur are seen. 3 views of the left hand demonstrate no acute fracture or dislocation. Mild osteoarthritis at the distal interphalangeal joints and first carpometacarpal joint. Flexion of the left fifth proximal interphalangeal joint with extension of the distal interphalangeal joint may be positional. Dictated by: Raul Oswald M.D. The radiology attending physician has personally reviewed this study, and had reviewed and/or edited this written report and agrees with it. Electronically signed by: Jaqueline Rogers MD Narrative 07/02/2025 5:09 PM CDT EXAMINATION: XR ANKLE LEFT 3 OR MORE VIEWS, XR HAND LEFT 3 OR MORE VIEWS HISTORY: injury Procedure Note Jaqueline Rogers MD - 07/02/2025 EXAMINATION: XR ANKLE LEFT 3 OR MORE VIEWS, XR HAND LEFT 3 OR MORE VIEWS HISTORY: injury IMPRESSION: FINDINGS/IMPRESSION: 3 views of the left ankle demonstrate no acute fracture or dislocation. Talar dome is intact. Surgical clips overlie the soft tissue medial to the tibia. Achilles enthesophyte and calcaneal spur are seen. 3 views of the left hand demonstrate no acute fracture or dislocation. Mild osteoarthritis at the distal interphalangeal joints and first carpometacarpal joint. Flexion of the left fifth proximal interphalangeal joint with extension of the distal interphalangeal joint may be positional. Dictated by: Raul Oswald M.D. The radiology attending physician has personally reviewed this study, and had reviewed and/or edited this written report and agrees with it. Electronically signed by: Jaqueline Rogers MD us Jax Lowe MD IMG XR PROCEDURES Final Result * XR Hand Left 3+ views (07/02/2025 4:45 PM CDT) Anatomical Region Laterality Modality Upper Extremities, Hand Left Computed Radiography 07/02/2025 5:06 PM CDT Impressions 07/02/2025 5:09 PM CDT FINDINGS/IMPRESSION: 3 views of the left ankle demonstrate no acute fracture or dislocation. Talar dome is intact. Surgical clips overlie the soft tissue medial to the tibia. Achilles enthesophyte and calcaneal spur are seen. 3 views of the left hand demonstrate no acute fracture or dislocation. Mild osteoarthritis at the distal interphalangeal joints and first carpometacarpal joint. Flexion of the left fifth proximal interphalangeal joint with extension of the distal interphalangeal joint may be positional. Dictated by: Raul Oswald M.D. The radiology attending physician has personally reviewed this study, and had reviewed and/or edited this written report and agrees with it. Electronically signed by: Jaqueline Rogers MD Narrative 07/02/2025 5:09 PM CDT EXAMINATION: XR ANKLE LEFT 3 OR MORE VIEWS, XR HAND LEFT 3 OR MORE VIEWS HISTORY: injury Procedure Note Jaqueline Rogers MD - 07/02/2025 EXAMINATION: XR ANKLE LEFT 3 OR MORE VIEWS, XR HAND LEFT 3 OR MORE VIEWS HISTORY: injury IMPRESSION: FINDINGS/IMPRESSION: 3 views of the left ankle demonstrate no acute fracture or dislocation. Talar dome is intact. Surgical clips overlie the soft tissue medial to the tibia. Achilles enthesophyte and calcaneal spur are seen. 3 views of the left hand demonstrate no acute fracture or dislocation. Mild osteoarthritis at the distal interphalangeal joints and first carpometacarpal joint. Flexion of the left fifth proximal interphalangeal joint with extension of the distal interphalangeal joint may be positional. Dictated by: Raul Oswald M.D. The radiology attending physician has personally reviewed this study, and had reviewed and/or edited this written report and agrees with it. Electronically signed by: Jaqueline Rogers MD us Jax Lowe MD IMG XR PROCEDURES Final Result * (ABNORMAL) eGFR (07/02/2025 1:50 PM CDT) [facility] eGFR 59(L) >=60 mL/min/1. 73 m2 Comment: Interpretive Data Reference Interval Normal >/= 90 mL/min/1.73m2 Mildly decreased* 60 - 89 mL/min/1.73m2 Mildly to moderately decreased 45 - 59 mL/min/1.73m2 Moderately to severely decreased 30 - 44 mL/min/1.73m2 Severely decreased 15 - 29 mL/min/1.73m2 Kidney Failure < 15 mL/min/1.73m2 *Relative to young adult level Estimated glomerular filtration rate is determined by the 2020 CKD-EPI equation recommended by the National [employer] (A Unifying Approach to GFR Estimation: Recommendations of the NKF-ASK Task Force on Reassessing the Inclusion of Race in Diagnosing Kidney Disease, JASN 2020). The CKD-EPI equation should not be used for patients with unstable renal function and has not been validated in children and those over 70. Current interpretive data was last reviewed 2021. Blood 07/02/2025 1:50 PM CDT 07/02/2025 1:53 PM CDT Maxwell Sosa MD LAB BLOOD ORDERABLES Final Res ult [facility] Department [place] [address] * Differential, auto (07/02/2025 1:50 PM CDT) [facility] Neutrophil abs 3.47 1.50 - 6.50 K/cumm Comment:Testing performed by : [facility], [address] [place] [phone] Lymphocyte abs 0.88 0.80 - 3.30 K/cumm DEVIN SOSA Comment:Testing performed by : [facility], [address] [place] [phone] Monocyte abs 0.44 0.20 - 0.80 K/cumm [facility] Comment:Testing performed by : [facility], [address] [place] [phone] Eosinophil abs 0.35 0.00 - 0.50 K/cumm [facility] Comment:Testing performed by : [facility], [address] [place] [phone] Basophil abs 0.04 0.00 - 0.10 K/cumm [facility] Comment:Testing performed by : [facility], [address] [place] [phone] Neutrophil pct 67.0 % [facility] Comment: Interpretive Data Percent cell count reference ranges are not reported, since discordance with absolute values may lead to misinterpretation of CBC data. Current Interpretive Data was last revised on 2017. Testing performed by: [facility], [address] [place] [phone] Lymphocyte pct 17.0 % [facility] Comment: Interpretive Data Percent cell count reference ranges are not reported, since discordance with absolute values may lead to misinterpretation of CBC data. Current Interpretive Data was last revised on 2017. Testing performed by: [facility], [address] [place] [phone] Monocyte pct 8.4 % [facility] Comment: Interpretive Data Percent cell count reference ranges are not reported, since discordance with absolute values may lead to misinterpretation of CBC data. Current Interpretive Data was last revised on 2017. Testing performed by: [facility], [address] [place] [phone] Eosinophil pct 6.7 % [facility] Comment: Interpretive Data Percent cell count reference ranges are not reported, since discordance with absolute values may lead to misinterpretation of CBC data. Current Interpretive Data was last revised on 2017. Testing performed by: [facility], [address] [place] [phone] Basophil pct 0.8 % [facility] Comment: Interpretive Data Percent cell count reference ranges are not reported, since discordance with absolute values may lead to misinterpretation of CBC data. Current Interpretive Data was last revised on 2017. Testing performed by: [facility], [address] [place] [phone] Blood 07/02/2025 1:50 PM CDT 07/02/2025 1:52 PM CDT Maxwell Sosa MD LAB BLOOD ORDERABLES Final Res ult Performing Organization Address City/[facility]/ZIP Co de Phone Number [facility] Department [place] [address] * Thyroid Function [place] (07/02/2025 1:50 PM CDT) TSH 1.39 0.30 - 4.20 mcIUnit/mL Blood 07/02/2025 1:50 PM CDT 07/02/2025 1:53 PM CDT Maxwell Sosa MD LAB BLOOD ORDERABLES Final Res ult Performing Organization Address City/[facility] Co de Phone Number [facility] Department [place] [address] * (ABNORMAL) CBC with auto differential (07/02/2025 1:50 PM CDT) WBC 5.18 3.80 - 9.90 K/cumm Comment:Testing performed by : [facility], [address] [place] [phone] Hgb 12.7 11.9 - 15.5 g/dL [facility]PR[facility] Comment:Testing performed by : [facility], [address] [place] [phone] Hct 37.7 35.6 - 45.5 % CERPRASAD [facility] Comment:Testing performed by : [facility], [address] [place] [address] Plt 229 150 - 400 K/cumm [facility] Comment:Testing performed by : [facility], [address] [place] [address] MPV 6.5(L) 6.8 - 10.4 fL DEVIN SOSA Comment:Testing performed by : [facility], [address] [place] [address] RBC 3.99 3.90 - 5.20 M/cumm DEVIN SOSA Comment:Testing performed by : [facility], [address] [place] [address] MCV 94.7 81.3 - 96.4 fL DEVIN SOSA Comment:Testing performed by : [facility], [address] [place] [address] MCH 31.9 27.1 - 33.3 pg DEVIN SOSA Comment:Testing performed by : [facility], [address] [place] [address] MCHC 33.7 32.3 - 35.7 g/dL DEVIN SOSA Comment:Testing performed by : [facility], [address] [place] [address] RDW CV 14.8 11.1 - 14.9 % DEVIN [facility] Comment:Testing performed by : [facility], [address] [place] [address] NRBC abs 0.00 0.00 - 0.01 K/cumm DEVIN [facility] Comment:Testing performed by : [facility], [address] [place] [address] Blood 07/02/2025 1:50 PM CDT 07/02/2025 1:52 PM CDT Maxwell Sosa MD LAB BLOOD ORDERABLES Final Res ult DEVIN SOSA [facility] Department [place] [address] * Magnesium (07/02/2025 1:50 PM CDT) Magnesium 1.8 1.4 - 2.5 mg/dL Blood 07/02/2025 1:50 PM CDT 07/02/2025 1:53 PM CDT Maxwell Sosa MD LAB BLOOD ORDERABLES Final Res ult Performing Organization Address City/[facility]/ZIP Co de Phone Number [facility] [place] [address] * Lactate dehydrogenase (LD) (07/02/2025 1:50 PM CDT) Pathologist [facility] Lactate dehydrogenase (LDH) 205 100 - 250 Units/L Blood 07/02/2025 1:50 PM CDT 07/02/2025 1:53 PM CDT Maxwell Sosa MD LAB BLOOD ORDERABLES Final Res ult Performing Organization Address [facility] Co de Phone Number [facility] [place] [address] * (ABNORMAL) Comprehensive metabolic panel (07/02/2025 1:50 PM CDT) Pathologist [facility] Sodium 146(H) 135 - 145 mmol/L Potassium, pl 4.2 3.3 - 4.9 mmol/L [facility] Chloride 109 97 - 110 mmol/L [facility] CO2 28 22 - 32 mmol/L [facility] Anion gap 9 2 - 15 mmol/L [facility] BUN 14 6 - 25 mg/dL [facility] Creatinine 0.98 0.60 - 1.10 mg/dL [facility] Glucose 114 70 - 199 mg/dL [facility] Comment: Interpretive Data Fasting glucose >/= 126 mg/dl is diagnostic for diabetes. Fasting is defined as no caloric intake for at least 8 hours. Fasting glucose between 100 mg/dl to 125 mg/dl is diagnostic of prediabetes. In a patient with classic symptoms of hyperglycemia or hyperglycemic crisis, a random glucose >/= 200 mg/dl is diagnostic for diabetes. In the absence of unequivocal hyperglycemia, results should be confirmed by repeat testing. The classification and Diagnosis of Diabetes Diabetes Care 2021; 46: S19-S40. Current interpretive data was last revised 2022. Calcium 9.3 8.5 - 10.3 mg/dL [facility] Bilirubin, total 0.5 0.1 - 1.2 mg/dL [facility] Protein, pl 6.8 6.5 - 8.5 g/dL [facility] Albumin 3.6 3.5 - 5.0 g/dL [facility] Alk phos 84 40 - 130 Units/L CERNER [facility] ALT 17 7 - 45 Units/L CERNER [facility] AST 24 10 - 45 Units/L [facility] Blood 07/02/2025 1:50 PM CDT 07/02/2025 1:53 PM CDT us Maxwell Sosa MD LAB BLOOD ORDERABLES Final Res ult [facility] One [facility] Department [place] [address] * eGFR (06/25/2025 1:10 PM CDT) eGFR 62 >=60 mL/min/1. 73 m2 Comment: Interpretive Data Reference Interval Normal >/= 90 mL/min/1.73m2 Mildly decreased* 60 - 89 mL/min/1.73m2 Mildly to moderately decreased 45 - 59 mL/min/1.73m2 Moderately to severely decreased 30 - 44 mL/min/1.73m2 Severely decreased 15 - 29 mL/min/1.73m2 Kidney Failure < 15 mL/min/1.73m2 *Relative to young adult level Estimated glomerular filtration rate is determined by the 2020 CKD-EPI equation recommended by the National Kidney Foundation (A Unifying Approach to GFR Estimation: Recommendations of the NKF-ASK Task Force on Reassessing the Inclusion of Race in Diagnosing Kidney Disease, JASN 202). The CKD-EPI equation should not be used for patients with unstable renal function and has not been validated in children and those over 70. Current interpretive data was last reviewed 2021. Blood 06/25/2025 1:10 PM CDT 06/25/2025 1:26 PM CDT us Maxwell Sosa MD LAB BLOOD ORDERABLES Final Res ult DEVIN [facility] One [facility] Department [place] [address] * Differential, auto (06/25/2025 1:10 PM CDT) Neutrophil abs 3.31 1.50 - 6.50 K/cumm Comment:Testing performed by : [facility], [address] [place] [phone] Lymphocyte abs 0.90 0.80 - 3.30 K/cumm CERPRASAD SOSA Comment:Testing performed by : [facility], [address] [place], [place] [phone] Monocyte abs 0.43 0.20 - 0.80 K/cumm DEVIN SOSA Comment:Testing performed by : [facility], [address] [place], [place] [phone] Eosinophil abs 0.33 0.00 - 0.50 K/cumm DEVIN SOSA Comment:Testing performed by : [facility], [address] [place] [phone] Basophil abs 0.06 0.00 - 0.10 K/cumm CERPRASAD SOSA Comment:Testing performed by : [facility], [address] [place] [phone] Neutrophil pct 65.8 % CERNER BJ Comment: Interpretive Data Percent cell count reference ranges are not reported, since discordance with absolute values may lead to misinterpretation of CBC data. Current Interpretive Data was last revised on 2017. Testing performed by: [facility], [address] [place] [phone] Lymphocyte pct 17.9 % CERNER BJ Comment: Interpretive Data Percent cell count reference ranges are not reported, since discordance with absolute values may lead to misinterpretation of CBC data. Current Interpretive Data was last revised on 2017. Testing performed by: [facility], [address] [place] [phone] Monocyte pct 8.6 % CERNER BJ Comment: Interpretive Data Percent cell count reference ranges are not reported, since discordance with absolute values may lead to misinterpretation of CBC data. Current Interpretive Data was last revised on 2017. Testing performed by: [facility], [address] [place] [phone] Eosinophil pct 6.5 % DEVIN SOSA Comment: Interpretive Data Percent cell count reference ranges are not reported, since discordance with absolute values may lead to misinterpretation of CBC data. Current Interpretive Data was last revised on 2017. Testing performed by: [facility], [address] [place] [phone] Basophil pct 1.2 % DEVIN SOSA Comment: Interpretive Data Percent cell count reference ranges are not reported, since discordance with absolute values may lead to misinterpretation of CBC data. Current Interpretive Data was last revised on 2017. Testing performed by: [facility], [address] [place] [phone] Blood 06/25/2025 1:10 PM CDT 06/25/2025 1:25 PM CDT us Maxwell Sosa MD LAB BLOOD ORDERABLES Final Res ult Performing Organization Address City/[facility]/ZIP Co de Phone Number [facility] Department [place] [address] * Thyroid Function [place] (06/25/2025 1:10 PM CDT) TSH 1.27 0.30 - 4.20 mcIUnit/mL Blood 06/25/2025 1:10 PM CDT 06/25/2025 1:26 PM CDT us Maxwell Sosa MD LAB BLOOD ORDERABLES Final Res ult Performing Organization Address City/[facility]/ZIP Co de Phone Number [facility] Department [place] [address] * (ABNORMAL) CBC with auto differential (06/25/2025 1:10 PM CDT) WBC 5.03 3.80 - 9.90 K/cumm Comment:Testing performed by : [facility], [address] [place], [place] [phone] Hgb 12.7 11.9 - 15.5 g/dL CERNER BJ Comment:Testing performed by : [facility], [address] [place], [place] [phone] Hct 38.4 35.6 - 45.5 % CERNER BJ Comment:Testing performed by : [facility], [address] [place] [address] Plt 224 150 - 400 K/cumm CERNER BJ Comment:Testing performed by : [facility], [address] [place], [place] [phone] MPV 6.6(L) 6.8 - 10.4 fL CERNER BJ Comment:Testing performed by : [facility], [address] [place] [address] RBC 4.04 3.90 - 5.20 M/cumm CERNER BJ Comment:Testing performed by : [facility], [address] [place] [address] MCV 95.0 81.3 - 96.4 fL CERNER BJ Comment:Testing performed by : [facility], [address] [place] [address] MCH 31.3 27.1 - 33.3 pg CERNER BJ Comment:Testing performed by : [facility], [address] [place] [address] MCHC 33.0 32.3 - 35.7 g/dL CERNER BJ Comment:Testing performed by : [facility], [address] [place] [address] RDW CV 15.2(H) 11.1 - 14.9 % CERNER BJ Comment:Testing performed by : [facility], [address] [place] [address] NRBC abs 0.00 0.00 - 0.01 K/cumm CERNER BJ Comment:Testing performed by : [facility], [address] [place] [phone] Blood 06/25/2025 1:10 PM CDT 06/25/2025 1:25 PM CDT Maxwell Sosa MD LAB BLOOD ORDERABLES Final Res ult Performing Organization Address City/[facility]/ZIP Co de Phone Number [facility] [place] [address] * Magnesium (06/25/2025 1:10 PM CDT) Pathologist [facility] Magnesium 2.0 1.4 - 2.5 mg/dL Blood 06/25/2025 1:10 PM CDT 06/25/2025 1:26 PM CDT Maxwell Sosa MD LAB BLOOD ORDERABLES Final Res ult Performing Organization Address [facility] Co de Phone Number [facility] [place] [address] [address] * Lactate dehydrogenase (LD) (06/25/2025 1:10 PM CDT) Pathologist [facility] Lactate dehydrogenase (LDH) 215 100 - 250 Units/L Blood 06/25/2025 1:10 PM CDT 06/25/2025 1:26 PM CDT Result [facility] Maxwell Sosa MD LAB BLOOD ORDERABLES Final Res ult Performing Organization Address City/[facility]/[place] [address] * Comprehensive metabolic panel (06/25/2025 1:10 PM CDT) Sodium 144 135 - 145 mmol/L Potassium, pl 3.6 3.3 - 4.9 mmol/L [facility] Chloride 110 97 - 110 mmol/L [facility] CO2 25 22 - 32 mmol/L [facility] Anion gap 9 2 - 15 mmol/L [facility] BUN 15 6 - 25 mg/dL [facility] Creatinine 0.94 0.60 - 1.10 mg/dL [facility] Glucose 125 70 - 199 mg/dL [facility] Comment: Interpretive Data Fasting glucose >/= 126 mg/dl is diagnostic for diabetes. Fasting is defined as no caloric intake for at least 8 hours. Fasting glucose between 100 mg/dl to 125 mg/dl is diagnostic of prediabetes. In a patient with classic symptoms of hyperglycemia or hyperglycemic crisis, a random glucose >/= 200 mg/dl is diagnostic for diabetes. In the absence of unequivocal hyperglycemia, results should be confirmed by repeat testing. The classification and Diagnosis of Diabetes Diabetes Care 202; 46: S19-S40. Current interpretive data was last revised 2022. Calcium 9.0 8.5 - 10.3 mg/dL [facility] Bilirubin, total 0.5 0.1 - 1.2 mg/dL [facility] Protein, pl 6.8 6.5 - 8.5 g/dL [facility] Albumin 3.6 3.5 - 5.0 g/dL [facility] Alk phos 80 40 - 130 Units/L [facility] ALT 18 7 - 45 Units/L [facility] AST 22 10 - 45 Units/L [facility] Blood 06/25/2025 1:10 PM CDT 06/25/2025 1:26 PM CDT Maxwell Sosa MD LAB BLOOD ORDERABLES Final Res ult [facility] One [facility] Department [place] [address] * Differential, auto (06/18/2025 11:57 AM CDT) Neutrophil abs 3.67 1.50 - 6.50 K/cumm Comment:Testing performed by : [facility], [address] [place] [address], [place] [phone] Lymphocyte abs 1.49 0.80 - 3.30 K/cumm CERNER [facility] Comment:Testing performed by : [facility], [address] [place] [phone] Monocyte abs 0.57 0.20 - 0.80 K/cumm CERNER [facility] Comment:Testing performed by : [facility], [address] [place] [phone] Eosinophil abs 0.33 0.00 - 0.50 K/cumm CERNER [facility] Comment:Testing performed by : [facility], [address] [place] [phone] Basophil abs 0.04 0.00 - 0.10 K/cumm CERNER [facility] Comment:Testing performed by : [facility], [address] [place] [phone] Neutrophil pct 60.2 % CERNER [facility] Comment: Interpretive Data Percent cell count reference ranges are not reported, since discordance with absolute values may lead to misinterpretation of CBC data. Current Interpretive Data was last revised on 2017. Testing performed by: [facility], [address] [place] [phone] Lymphocyte pct 24.4 % CERNER [facility] Comment: Interpretive Data Percent cell count reference ranges are not reported, since discordance with absolute values may lead to misinterpretation of CBC data. Current Interpretive Data was last revised on 2017. Testing performed by: [facility], [address] [place] [phone] Monocyte pct 9.3 % CERNER [facility] Comment: Interpretive Data Percent cell count reference ranges are not reported, since discordance with absolute values may lead to misinterpretation of CBC data. Current Interpretive Data was last revised on 2017. Testing performed by: [facility], [address] [place] [phone] Eosinophil pct 5.4 % CERNER [facility] Comment: Interpretive Data Percent cell count reference ranges are not reported, since discordance with absolute values may lead to misinterpretation of CBC data. Current Interpretive Data was last revised on 2017. Testing performed by: [facility], [address] [place] [phone] Basophil pct 0.7 % DEVIN [facility] Comment: Interpretive Data Percent cell count reference ranges are not reported, since discordance with absolute values may lead to misinterpretation of CBC data. Current Interpretive Data was last revised on 2017. Testing performed by: [facility], [address] [place] [address] Blood 06/18/2025 11:5 7 AM CDT 06/18/2025 12:07 PM CDT us Maxwell Sosa MD LAB BLOOD ORDERABLES Final Res ult DEVIN SOSA [facility] Department [place] [address] * (ABNORMAL) CBC with auto differential (06/18/2025 11:57 AM CDT) WBC 6.09 3.80 - 9.90 K/cumm Comment:Testing performed by : [facility], [address] [place] [address] Hgb 13.4 11.9 - 15.5 g/dL DEVIN SOSA Comment:Testing performed by : [facility], [address] [place] [address] Hct 39.5 35.6 - 45.5 % DEVIN SOSA Comment:Testing performed by : [facility], [address] [place] [address] Plt 242 150 - 400 K/cumm DEVIN SOSA Comment:Testing performed by : [facility], [address] [place] [address] MPV 6.6(L) 6.8 - 10.4 fL DEVIN SOSA Comment:Testing performed by : [facility], [address] [place] [address] RBC 4.20 3.90 - 5.20 M/cumm DEVIN SOSA Comment:Testing performed by : [facility], [address] [place] [address] MCV 93.9 81.3 - 96.4 fL DEVIN [facility] Comment:Testing performed by : [facility], [address] [place] [address] MCH 32.0 27.1 - 33.3 pg DEVIN SOSA Comment:Testing performed by : [facility], [address] [place] [address] MCHC 34.0 32.3 - 35.7 g/dL DEVIN SOSA Comment:Testing performed by : [facility], [address] [place] [address] RDW CV 14.7 11.1 - 14.9 % DEVIN [facility] Comment:Testing performed by : [facility], [address] [place], [place] [phone] NRBC abs 0.00 0.00 - 0.01 K/cumm DEVIN [facility] Comment:Testing performed by : [facility], [address] [place] [address] Blood 06/18/2025 11:5 7 AM CDT 06/18/2025 12:07 PM CDT Maxwell Sosa MD LAB BLOOD ORDERABLES Final Res ult [facility] [place] [address] * (ABNORMAL) eGFR (06/18/2025 11:51 AM CDT) eGFR 41(L) >=60 mL/min/1. 73 m2 Comment: Interpretive Data Reference Interval Normal >/= 90 mL/min/1.73m2 Mildly decreased* 60 - 89 mL/min/1.73m2 Mildly to moderately decreased 45 - 59 mL/min/1.73m2 Moderately to severely decreased 30 - 44 mL/min/1.73m2 Severely decreased 15 - 29 mL/min/1.73m2 Kidney Failure < 15 mL/min/1.73m2 *Relative to young adult level Estimated glomerular filtration rate is determined by the 2020 CKD-EPI equation recommended by the National Kidney Foundation (A Unifying Approach to GFR Estimation: Recommendations of the NKF-ASK Task Force on Reassessing the Inclusion of Race in Diagnosing Kidney Disease, JASN 2020). The CKD-EPI equation should not be used for patients with unstable renal function and has not been validated in children and those over 70. Current interpretive data was last reviewed 2021. Blood 06/18/2025 11:5 1 AM CDT 06/18/2025 12:11 PM CDT us Maxwell Sosa MD LAB BLOOD ORDERABLES Final Res ult Performing Organization Address City/[facility]/ZIP Co de Phone Number [facility] [place] [address] [place] [address] * Thyroid Function [place] (06/18/2025 11:51 AM CDT) TSH 1.71 0.30 - 4.20 mcIUnit/mL Blood 06/18/2025 11:5 1 AM CDT 06/18/2025 12:11 PM CDT us Maxwell Sosa MD LAB BLOOD ORDERABLES Final Res ult Performing Organization Address [facility] Co de Phone Number [facility] [place] [address] * Magnesium (06/18/2025 11:51 AM CDT) Magnesium 2.2 1.4 - 2.5 mg/dL Blood 06/18/2025 11:5 1 AM CDT 06/18/2025 12:11 PM CDT us Maxwell Sosa MD LAB BLOOD ORDERABLES Final Res ult [facility] [place] [address] * Lactate dehydrogenase (LD) (06/18/2025 11:51 AM CDT) Lactate dehydrogenase (LDH) 235 100 - 250 Units/L Blood 06/18/2025 11:5 1 AM CDT 06/18/2025 12:11 PM CDT us Maxwell Sosa MD LAB BLOOD ORDERABLES Final Res ult [facility] One [facility] Department [place] [address] * (ABNORMAL) Comprehensive metabolic panel (06/18/2025 11:51 AM CDT) Pathologist [facility] Sodium 142 135 - 145 mmol/L Potassium, pl 4.7 3.3 - 4.9 mmol/L [facility] Chloride 106 97 - 110 mmol/L [facility] CO2 26 22 - 32 mmol/L [facility] Anion gap 10 2 - 15 mmol/L [facility] BUN 24 6 - 25 mg/dL [facility] Creatinine 1.32(H) 0.60 - 1.10 mg/dL [facility] Glucose 104 70 - 199 mg/dL [facility] Comment: Interpretive Data Fasting glucose >/= 126 mg/dl is diagnostic for diabetes. Fasting is defined as no caloric intake for at least 8 hours. Fasting glucose between 100 mg/dl to 125 mg/dl is diagnostic of prediabetes. In a patient with classic symptoms of hyperglycemia or hyperglycemic crisis, a random glucose >/= 200 mg/dl is diagnostic for diabetes. In the absence of unequivocal hyperglycemia, results should be confirmed by repeat testing. The classification and Diagnosis of Diabetes Diabetes Care 202; 46: S19-S40. Current interpretive data was last revised 2022. Calcium 9.8 8.5 - 10.3 mg/dL [facility] Bilirubin, total 0.5 0.1 - 1.2 mg/dL [facility] Protein, pl 7.1 6.5 - 8.5 g/dL [facility] Albumin 3.9 3.5 - 5.0 g/dL [facility] Alk phos 88 40 - 130 Units/L [facility] ALT 19 7 - 45 Units/L [facility] AST 23 10 - 45 Units/L [facility] Blood 06/18/2025 11:5 1 AM CDT 06/18/2025 12:11 PM CDT Maxwell Sosa MD LAB BLOOD ORDERABLES Final Res ult [facility] One [facility] [place] [address] * PET/CT FDG Whole Body (06/15/2025 12:27 PM CDT) Anatomical Region Laterality Modality Body N/A Positron Emissio n Tomography (PET) 06/15/2025 2:24 PM CDT Impressions 06/15/2025 3:14 PM CDT 1. Markedly hypermetabolic cutaneous thickening in the anterior and lateral aspect of the left upper leg, consistent with biopsy-proven squamous cell carcinoma. 2. No FDG PET/CT evidence of locoregional or distant metastatic disease. Dictated by: Christa Hudson M.D. The radiology attending physician has personally reviewed this study, and had reviewed and/or edited this written report and agrees with it. Electronically signed by: Stevenson Lo M.D. Narrative 06/15/2025 3:14 PM CDT EXAMINATION: TUMOR FDG-PET/CT IMAGING DATE OF STUDY: 06/15/2025 SCANNER: [facility] Mofiboa (SQ1). This is a high-resolution scanner, which can result in higher SUVs (and even detection of previously unrecognized small lesions) compared to older scanners. RADIOPHARMACEUTICAL: 7.46 mCi F-18 Fluorodeoxyglucose (FDG) i.v. Injection site: Left hand. 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 Punch biopsy on 05/08/2025 and shave biopsy on 05/16/2025 showed squamous cell carcinoma.The study is requested for initial staging. Initial treatment strategy. TECHNIQUE: The patient's fasting blood glucose level, measured by glucometer before injection of FDG, was 89 mg/dL. After intravenous administration of FDG, noncontrast CT images were obtained for attenuation correction and for fusion with emission PET images to allow for anatomical localization of PET findings. Emission PET images were then obtained. The study was interpreted on the [employer] workstation. The mean liver SUV (reported for quality assurance associate purposes) is 3.7. The total scanned area was skull vertex to toes. Images of the body were obtained starting 61 minutes after injection of tracer. All reported SUVs are maximum SUVs, unless otherwise specified. COMPARISON: CTA head on 08/16/2024. DESCRIPTORS OF LESION FDG AVIDITY: Minimal: <= blood pool Mild: > blood pool and <= liver Moderate: > liver and <= 2x SUVmax liver Moderate to marked: >2x SUVmax liver and <= 3x SUVmax liver Marked: > 3x SUVmax liver FINDINGS: There is marked cutaneous thickening with hypermetabolic activity in the lateral aspect of the left upper leg, with SUV reaching 13.4. There is increased mural FDG uptake in the distal esophagus, likely reflux related. There is increased FDG uptake in the distal stump of the right leg, post right below knee-amputation, likely inflammatory. There is right high frontal area of photopenia, correlating with encephalomalacia on CT, unchanged from the CT head on 08/16/2024. There is multifocal muscular FDG uptake, likely physiological. No other foci of abnormal FDG uptake. The most FDG-avid lesion is the left upper leg anterior and lateral aspect, has a maximum SUV of 13.4,. Additional CT findings: Lens replacements. Dental restorations. Atherosclerotic calcifications of the aorta and coronary arteries. Sternotomy wires related to prior CABG. Pulmonary, left hilar, splenic and hepatic granulomas. Cholecystectomy. Infrarenal focal aneurysmal dilatation of the aorta measuring 2 cm (image 202). Colonic diverticulosis without evidence of diverticulitis. Right knee replacement. Multifocal pulmonary atelectatic bands. Bilateral carotid calcifications. Left thyroid nodule without FDG uptake. Breast calcifications. Ground glass opacity in the right upper lobe without increased FDG uptake. Small hiatal hernia. Calcified splenic artery. Fatty atrophy of the pancreas. Right below knee amputation with relative muscular atrophy. Post surgical changes related to left saphenous vein harvesting. Procedure Note Stevenson Lo MD - 06/15/2025 EXAMINATION: TUMOR FDG-PET/CT IMAGING DATE OF STUDY: 06/15/2025 SCANNER: [facility] Mofiboa (SQ1). This is a high-resolution scanner, which can result in higher SUVs (and even detection of previously unrecognized small lesions) compared to older scanners. RADIOPHARMACEUTICAL: 7.46 mCi F-18 Fluorodeoxyglucose (FDG) i.v. Injection site: Left hand. 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 Punch biopsy on 05/08/2025 and shave biopsy on 05/16/2025 showed squamous cell carcinoma.The study is requested for initial staging. Initial treatment strategy. TECHNIQUE: The patient's fasting blood glucose level, measured by glucometer before injection of FDG, was 89 mg/dL. After intravenous administration of FDG, noncontrast CT images were obtained for attenuation correction and for fusion with emission PET images to allow for anatomical localization of PET findings. Emission PET images were then obtained. The study was interpreted on the [employer] workstation. The mean liver SUV (reported for quality assurance associate purposes) is 3.7. The total scanned area was skull vertex to toes. Images of the body were obtained starting 61 minutes after injection of tracer. All reported SUVs are maximum SUVs, unless otherwise specified. COMPARISON: CTA head on 08/16/2024. DESCRIPTORS OF LESION FDG AVIDITY: Minimal: <= blood pool Mild: > blood pool and <= liver Moderate: > liver and <= 2x SUVmax liver Moderate to marked: >2x SUVmax liver and <= 3x SUVmax liver Marked: > 3x SUVmax liver FINDINGS: There is marked cutaneous thickening with hypermetabolic activity in the lateral aspect of the left upper leg, with SUV reaching 13.4. There is increased mural FDG uptake in the distal esophagus, likely reflux related. There is increased FDG uptake in the distal stump of the right leg, post right below knee-amputation, likely inflammatory. There is right high frontal area of photopenia, correlating with encephalomalacia on CT, unchanged from the CT head on 08/16/2024. There is multifocal muscular FDG uptake, likely physiological. No other foci of abnormal FDG uptake. The most FDG-avid lesion is the left upper leg anterior and lateral aspect, has a maximum SUV of 13.4,. Additional CT findings: Lens replacements. Dental restorations. Atherosclerotic calcifications of the aorta and coronary arteries. Sternotomy wires related to prior CABG. Pulmonary, left hilar, splenic and hepatic granulomas. Cholecystectomy. Infrarenal focal aneurysmal dilatation of the aorta measuring 2 cm (image 202). Colonic diverticulosis without evidence of diverticulitis. Right knee replacement. Multifocal pulmonary atelectatic bands. Bilateral carotid calcifications. Left thyroid nodule without FDG uptake. Breast calcifications. Ground glass opacity in the right upper lobe without increased FDG uptake. Small hiatal hernia. Calcified splenic artery. Fatty atrophy of the pancreas. Right below knee amputation with relative muscular atrophy. Post surgical changes related to left saphenous vein harvesting. IMPRESSION: 1. Markedly hypermetabolic cutaneous thickening in the anterior and lateral aspect of the left upper leg, consistent with biopsy-proven squamous cell carcinoma. 2. No FDG PET/CT evidence of locoregional or distant metastatic disease. Dictated by: Christa Hudson M.D. The radiology attending physician has personally reviewed this study, and had reviewed and/or edited this written report and agrees with it. Electronically signed by: Stevenson Lo M.D. Maxwell Sosa MD IMG PET PROCEDURES Final Resul t * Caris [place] Cancer Seek??? + Additional Tests (06/05/2025 10:52 AM CDT) Pathologist [facility] Genomic Loss of Heterozygosity - [place] Low 3% 06/22/2025 3:22 PM CDT [employer] CARIS Microsatellite Instability - [place] Stable 06/22/2025 3:22 PM CDT [employer] CARIS Tumor Mutational [place] - [place] Low 7 per Mb 06/22/2025 3:22 PM CDT [employer] CARIS HLA-A - [place] A*02:01,A* 29:02 06/22/2025 3:22 PM CDT [employer] CARIS HLA-B - [place] B*27:05,B* 44:03 06/22/2025 3:22 PM CDT [employer] CARIS HLA-C - [place] C*01:02,C* 16:01 06/22/2025 3:22 PM CDT [employer] Tissue specimen (specimen) 06/05/2025 10:52 AM CDT 06/13/2025 9:45 PM CDT Narrative This result has genomic variants that were not included in this document. Maxwell Sosa MD LAB GENETIC TESTING Final Resu lt [employer] [address] [place] [address], [facility] [phone] * US Vein Duplex Lower Extremity Bilateral Complete (05/30/2025 2:04 PM CDT) Anatomical Region Laterality Modality Vascular Bilateral Ultrasound 05/30/2025 1:21 PM CDT Narrative 05/31/2025 6:36 AM CDT [facility] [employer] [facility] - Department of Vascular Surgery, Vascular Laboratory [address] [place] [address] Lower Extremity Venous Ultrasound Report Patient Name: VERONA TRUONG : 1945 (80y 2m) Study Date: 05/30/2025 1:21:41 PM Sex: F Tech: Location: [facility] Provider: SARBJIT MILLER Quality: Adequate Order Provider: SARBJIT MILLER PROCEDURES: Vascular Report: Venous Duplex imaging was performed bilaterally in the lower extremities. The common femoral, femoral, popliteal, posterior tibial, peroneal veins were evaluated for patency, spontaneity and phasicity with Doppler, compression and augmentation maneuvers. Great saphenous vein proximal at the junction was evaluated with compression maneuvers. INDICATIONS: M79.89 Other specified soft tissue disorders. FINDINGS: Performing Owner Professional Engineer: RAD IbrahimT. Bilateral: Venous Doppler signals in the bilateral lower extremity are within normal limits for spontaneity and phasicity and respond normally to augmentation maneuvers. No evidence of deep vein thrombus by duplex, proximal to the calf. Comments: Status post right below knee amputation. CONCLUSIONS: 1. There is no evidence of acute deep vein thrombosis in the lower extremities bilaterally. Noninvasive venous studies cannot rule out isolated calf vein obstruction. 2. Status post right below knee amputation. HISTORY: HTN, HLD, CVA, CAD, Former smoker, RBKA, [place], PVD, CABG, CEA. PREVIOUS STUDIES: Previous study performed on 04/14/22 negative LLE. DISCLAIMER: The study images and the final report will be retained in the patient chart by the Vascular Laboratory for the legally required time period. This chart constitutes the legal record of any testing performed. ATTESTATION: I have reviewed and interpreted the pertinent images and measurements of this study. I attest to the conclusions in the final report that is provided above. Electronically Signed By: Danyel Manzo MD [facility] [phone] 05/31/2025 6:36:24 AM CDT Procedure Note Danyel Manzo MD - 05/31/2025 [facility] [employer] [facility] - Department of Vascular Surgery,Vascular Laboratory [address] [place] [address] Lower Extremity Venous Ultrasound Report Patient Name: VERONA TRUONG : 1945 (80y 2m) Study Date: 05/30/2025 1:21:41 PM Sex: F Tech: Location: [facility] Ref Provider: SARBJIT MILLER Quality: Adequate Order Provider: SARBJIT MILLER PROCEDURES: Vascular Report: Venous Duplex imaging was performed bilaterally in the lower extremities.The common femoral, femoral, popliteal, posterior tibial, peroneal veins wereevaluated for patency, spontaneity and phasicity with Doppler, compression and augmentationmaneuvers. Great saphenous vein proximal at the junction was evaluated with compressionmaneuvers. INDICATIONS: M79.89 Other specified soft tissue disorders. FINDINGS: Performing Owner Professional Engineer: Nayla Iglesias RVT. Bilateral: Venous Doppler signals in the bilateral lower extremity are within normallimits for spontaneity and phasicity and respond normally to augmentation maneuvers.No evidence of deep vein thrombus by duplex, proximal to the calf. Comments: Status post right below knee amputation. CONCLUSIONS: 1. There is no evidence of acute deep vein thrombosis in the lowerextremities bilaterally. Noninvasive venous studies cannot rule out isolated calf veinobstruction. 2. Status post right below knee amputation. HISTORY: HTN, HLD, CVA, CAD, Former smoker, RBKA, NM, PVD, CABG, CEA. PREVIOUS STUDIES: Previous study performed on 04/14/22 negative LLE. DISCLAIMER: The study images and the final report will be retained in the patientchart by the Vascular Laboratory for the legally required time period. This chartconstitutes the legal record of any testing performed. ATTESTATION: I have reviewed and interpreted the pertinent images and measurements ofthis study. I attest to the conclusions in the final report that is provided above. Electronically Signed By: Danyel Manzo MD [facility] [phone] 05/31/2025 6:36:24 AM CDT us Sarbjit Miller MD IMG US PROCEDURES Final Result * ECG 12 lead (05/30/2025 9:35 AM CDT) Impressions Sarbjit Miller MD - 05/30/2025 9:35 AM CDT Sinus rhythm with a rate of 58. Q in [address] or T-wave changes. No change from 2023 us Sarbjit Miller MD ECG ORDERABLES Final Re sult * [facility] Mobile Cardiac Telemetry Event Monitor (05/30/2025 8:34 AM CDT) Anatomical Region Laterality Modality Electrocardiogra phy 05/30/2025 8:37 AM CDT Narrative 07/09/2025 10:47 AM CDT [facility] Cardiac Diagnostic Lab [address] , [address] [place] [address] CARDIAC EVENT MONITOR REPORT Patient Name: VERONA TRUONG L : 1945 (80y 2m) Sex: F Study Date: 05/30/2025 08:37:23 AM Ht(Inch): Wt(Lb): BSA: Tech: Location: [facility] Order Provider: SARBJIT MILLER BMI: Ref Provider: SARBJIT MILLER PROCEDURES: Event Report: [facility] MOBILE CARDIAC TELEMETRY EVENT MONITOR [[id number]]. Enrollment Period: 2025-06-07 00:00:00 through 2025-07-06 00:00:00. Location: [facility]. INDICATIONS: R42 Dizziness and giddiness, R55 Syncope and collapse, and R42 Dizziness and giddiness. FINDINGS: Event Data: Min Rate: 49 BPM Min Rate Timestamp: 2025-06-27 21:02:00 Max Rate: 117 BPM Max Rate Timestamp: 2025-07-06 22:16:00 Mean Rate: 62 BPM SIGNIFICANT PAUSES: 0 >3 sec SUMMARY: The patient's monitoring period was 06/07/2025 - 07/06/2025. Baseline sample showed Sinus Rhythm, Sinus Bradycardia w/1st Degree AV Block/PACs with a heart rate of 63.8 bpm. There were 0 critical, 0 serious, and 3 stable events that occurred. all detected evets are in NSR. - CONCLUSIONS: 1. The patient's monitoring period was 06/07/2025 - 07/06/2025. Baseline sample showed Sinus Rhythm, Sinus Bradycardia w/1st Degree AV Block/PACs with a heart rate of 63.8 bpm. There were 0 critical, 0 serious, and 3 stable events that occurred. all detected evets are in NSR. 2. I have reviewed the PDF and all the ECG strips. I agree with the interpretations as detailed in the report. 3. The PDF can be found in the [facility] Patient chart. Please go to the Cardiology tab, click on the holter or event exam. Scroll to bottom where the ORDER-LEVEL Documents reside and click the blue link to the pdf. Electronically Signed By: Raghu Baker Jr., M.D. 07/09/2025 9:55:05 AM CDT Procedure Note Raghu Baker MD PhD - 07/09/2025 [facility] Cardiac Diagnostic Lab [address] , [address] [place] [address] CARDIAC EVENT MONITOR REPORT Patient Name: VERONA TRUONG L : 1945 (80y 2m) Sex: F Study Date: 05/30/2025 08:37:23 AM Ht(Inch): Wt(Lb): BSA: Tech: Location: [facility] Order Provider: SARBJIT MILLER BMI: Ref Provider: SARBJIT MILLER PROCEDURES: Event Report: [facility] MOBILE CARDIAC TELEMETRY EVENT MONITOR [[id number]]. Enrollment Period: 2025-06-07 00:00:00 through 2025-07-06 00:00:00. Location: [facility]. INDICATIONS: R42 Dizziness and giddiness, R55 Syncope and collapse, and R42 Dizzinessand giddiness. FINDINGS: Event Data: Min Rate: 49 BPM Min Rate Timestamp: 2025-06-27 21:02:00 Max Rate: 117 BPM Max Rate Timestamp: 2025-07-06 22:16:00 Mean Rate: 62 BPM SIGNIFICANT PAUSES: 0 >3 sec SUMMARY: The patient's monitoring period was 06/07/2025 - 07/06/2025.Baseline sample showed Sinus Rhythm, Sinus Bradycardia w/1st Degree AV Block/PACs with aheart rate of 63.8 bpm. There were 0 critical, 0 serious, and 3 stable events thatoccurred. all detected evets are in NSR. - CONCLUSIONS: 1. The patient's monitoring period was 06/07/2025 - 07/06/2025. Baselinesample showed Sinus Rhythm, Sinus Bradycardia w/1st Degree AV Block/PACs with a heartrate of 63.8 bpm. There were 0 critical, 0 serious, and 3 stable events that occurred. alldetected evets are in NSR. 2. I have reviewed the PDF and all the ECG strips. I agree with theinterpretations as detailed in the report. 3. The PDF can be found in the Epic Patient chart. Please go to theCardiology tab, click on the holter or event exam. Scroll to bottom where the ORDER-LEVELDocuments reside and click the blue link to the pdf. Electronically Signed By: Raghu Baker Jr., M.D. 07/09/2025 9:55:05 AM CDT us Sarbjit Miller MD CV CARDIAC SERVICES PROC EDURES Final Result * Influenza A/B, RSV, and COVID-19 PCR Nasopharyngeal (05/29/2025 3:38 PM CDT) [facility] COVID-19 RNA Negative Negative [facility] Influenza A RNA Negative Negative [facility] Influenza B RNA Negative Negative [facility] RSV RNA Negative Negative [facility] Comment: Interpretive data: Testing performed by [facility] ([phone]). This test is performed using the Sovi Xpert Xpress CoV-2/Flu/RSV plus assay. This is a multiplex, real-time reverse transcriptase PCR assay intended for the qualitative detection of nucleic acid from SARS-CoV-2, influenza A, influenza B, and respiratory syncytial virus. This assay has been cleared by the [place] Food and Drug administration. The performance characteristics have been verified by the [facility]. Results must be considered in the clinical context, and a negative result does not rule out infection. Interpretive Data last revised 2023 Nasopharyngeal 05/29/2025 3: 38 PM CDT 05/29/2025 3:54 PM CDT Narrative [facility] - 05/29/2025 4:45 PM CDT Is the Patient experiencing symptoms consistent with COVID?->Yes Known exposure to confirmed or suspected COVID-19 case?->No Reason for testing?->Symptomatic Sarbjit Miller MD LAB MICROBIOLOGY - GENER AL ORDERABLES Final Result [facility] Department [place] [address] [facility] * (ABNORMAL) Troponin I high-sensitivity (05/29/2025 3:12 PM CDT) [facility] Trop I hs 18(H) <=17 ng/L Comment: Interpretive Data For further [facility] resources including the diagnostic algorithm and an aid in interpretation, copy and paste this link: [email or web address] Current Interpretive Data last revised 2020. Blood 05/29/2025 3:12 PM CDT 05/29/2025 6:03 PM CDT Sarbjit Miller MD LAB BLOOD ORDERABLES Fin al Result Performing Organization Address [facility] Co de Phone Number [facility] Department [place] [address] * (ABNORMAL) eGFR (05/29/2025 3:12 PM CDT) eGFR 44(L) >=60 mL/min/1. 73 m2 Comment: Interpretive Data Reference Interval Normal >/= 90 mL/min/1.73m2 Mildly decreased* 60 - 89 mL/min/1.73m2 Mildly to moderately decreased 45 - 59 mL/min/1.73m2 Moderately to severely decreased 30 - 44 mL/min/1.73m2 Severely decreased 15 - 29 mL/min/1.73m2 Kidney Failure < 15 mL/min/1.73m2 *Relative to young adult level Estimated glomerular filtration rate is determined by the 2020 CKD-EPI equation recommended by the National Kidney Foundation (A Unifying Approach to GFR Estimation: Recommendations of the NKF-ASK Task Force on Reassessing the Inclusion of Race in Diagnosing Kidney Disease, JASN 2020). The CKD-EPI equation should not be used for patients with unstable renal function and has not been validated in children and those over 70. Current interpretive data was last reviewed 2021. Blood 05/29/2025 3:12 PM CDT 05/29/2025 6:12 PM CDT us Sarbjit Miller MD LAB BLOOD ORDERABLES Fin al Result Performing Organization Address City/[facility]/ZIP Co de Phone Number [facility] Department [place] [address] * Differential, auto (05/29/2025 3:12 PM CDT) Neutrophil abs 4.23 1.50 - 6.50 K/cumm Imm gran abs 0.02 0.00 - 0.10 K/cumm [facility] Lymphocyte abs 1.40 0.80 - 3.30 K/cumm [facility] Monocyte abs 0.63 0.20 - 0.80 K/cumm [facility] Eosinophil abs 0.36 0.00 - 0.50 K/cumm [facility] Basophil abs 0.05 0.00 - 0.10 K/cumm [facility] Neutrophil pct 63.3 % [facility] Comment: Interpretive Data Percent cell count reference ranges are not reported, since discordance with absolute values may lead to misinterpretation of CBC data. Current Interpretive Data was last revised on 2017. Imm gran pct 0.3 % [facility] Comment: Interpretive Data Percent cell count reference ranges are not reported, since discordance with absolute values may lead to misinterpretation of CBC data. Current Interpretive Data was last revised on 2017. Lymphocyte pct 20.9 % [facility] Comment: Interpretive Data Percent cell count reference ranges are not reported, since discordance with absolute values may lead to misinterpretation of CBC data. Current Interpretive Data was last revised on 2017. Monocyte pct 9.4 % [facility] Comment: Interpretive Data Percent cell count reference ranges are not reported, since discordance with absolute values may lead to misinterpretation of CBC data. Current Interpretive Data was last revised on 2017. Eosinophil pct 5.4 % [facility] Comment: Interpretive Data Percent cell count reference ranges are not reported, since discordance with absolute values may lead to misinterpretation of CBC data. Current Interpretive Data was last revised on 2017. Basophil pct 0.7 % [facility] Comment: Interpretive Data Percent cell count reference ranges are not reported, since discordance with absolute values may lead to misinterpretation of CBC data. Current Interpretive Data was last revised on 2017. Blood 05/29/2025 3:12 PM CDT 05/29/2025 6:03 PM CDT us Sarbjit Miller MD LAB BLOOD ORDERABLES Fin al Result [facility] Department [place] [address] * (ABNORMAL) Pro B-type natriuretic peptide (05/29/2025 3:12 PM CDT) NT-proBNP 2,290(H) <=450 pg/mL Comment: Interpretive Comments: A. Dyspnea in Acute Care Setting All Ages: < 300 pg/ml, acute heart failure unlikely. < 50 yrs: 300 - 450 pg/ml, further investigation warranted. > 450 pg/ml, acute heart failure likely. 50 - 74 yrs: 300 - 900 pg/ml, further investigation warranted. > 900 pg/ml, acute heart failure likely . > or = 75 yrs: 450 - 1800 pg/ml, further investigation warranted. > 1800 pg/ml, acute heart failure likely. B. Non-acute Setting < 75 yrs < 125 pg/ml, rules out heart failure. > or = 125 pg/ml, further investigation warranted. > or = 75 yrs < 450 pg/ml, rules out heart failure. > or = 450 pg/ml, further investigation warranted. - Knowledge of each individual patient's NT-proBNP range may be more useful than using similar cut-points for every patient. Please note that marked elevations in NT-proBNP levels may be observed in state other than Left Ventricular Congestive Failure, including: acute coronary syndromes, right heart strain/failure (including pulmonary embolism and cor pulmonale), critical illness, renal failure, as well as advanced age. - References: 1. Erica COTE et.al. Eur Heart J. 2006:27:330-337. 2. Nirav RW, Julian AM. J. AM Steff Cardiol: Cardiovasc Imag. 2009;2: 216- 225. Interpretive Data Last Revised Date: 2018. Blood 05/29/2025 3:12 PM CDT 05/29/2025 6:03 PM CDT us Sarbjit Miller MD LAB BLOOD ORDERABLES Fin al Result [facility] Department [place] [address] * (ABNORMAL) CBC with auto differential (05/29/2025 3:12 PM CDT) [facility] WBC 6.69 3.80 - 9.90 K/cumm Hgb 12.9 11.9 - 15.5 g/dL [facility] Hct 38.1 35.6 - 45.5 % [facility] Plt 219 150 - 400 K/cumm [facility] MPV 9.4 9.1 - 12.3 fL [facility] RBC 3.99 3.90 - 5.20 M/cumm [facility] MCV 95.5 81.3 - 96.4 fL [facility] MCH 32.3 27.1 - 33.3 pg [facility] MCHC 33.9 32.3 - 35.7 g/dL [facility] RDW CV 14.9 11.1 - 14.9 % [facility] RDW SD 52.6(H) 35.7 - 48.1 fL [facility] NRBC abs 0.00 0.00 - 0.01 K/cumm [facility] Blood 05/29/2025 3:12 PM CDT 05/29/2025 6:03 PM CDT us Sarbjit Miller MD LAB BLOOD ORDERABLES Fin al Result [facility] Department [place] [address] * (ABNORMAL) Basic metabolic panel (05/29/2025 3:12 PM CDT) [facility] Sodium 142 135 - 145 mmol/L Potassium, pl 3.8 3.3 - 4.9 mmol/L [facility] Chloride 104 97 - 110 mmol/L [facility] CO2 30 22 - 32 mmol/L [facility] Anion gap 8 2 - 15 mmol/L [facility] BUN 22 6 - 25 mg/dL [facility] Creatinine 1.25(H) 0.60 - 1.10 mg/dL [facility] Glucose 63(L) 70 - 199 mg/dL [facility] Comment: Interpretive Data Fasting glucose >/= 126 mg/dl is diagnostic for diabetes. Fasting is defined as no caloric intake for at least 8 hours. Fasting glucose between 100 mg/dl to 125 mg/dl is diagnostic of prediabetes. In a patient with classic symptoms of hyperglycemia or hyperglycemic crisis, a random glucose >/= 200 mg/dl is diagnostic for diabetes. In the absence of unequivocal hyperglycemia, results should be confirmed by repeat testing. The classification and Diagnosis of Diabetes Diabetes Care 2021; 46: S19-S40. Current interpretive data was last revised 2022. Calcium 9.4 8.5 - 10.3 mg/dL [facility] Blood 05/29/2025 3:12 PM CDT 05/29/2025 6:03 PM CDT Sarbjit Miller MD LAB BLOOD ORDERABLES Fin al Result [facility] Department [place] [address] * Surgical pathology (05/16/2025 12:45 PM CDT) Skin, shave biopsy 05/16/2025 12:45 PM CDT 05/17/2025 9:15 AM CDT Narrative 05/18/2025 4:00 PM CDT EPIC results best viewed via link to PDF [facility] [address] [place] [address], [address], [place] [address] [email or web address] Note to Patients: This report may contain a detailed description of human tissue sent by a health care provider to the laboratory for pathologic evaluation. The content of this report is essential for diagnosis and may provide important critical findings. This information may be unfamiliar to patients to review without a medical professional present. It is advised that the patient review this report in the presence of a health care provider who can answer questions and explain the details. FINAL REPORT Patient Information: PATIENT NAME: VERONA TRUONG SEX: F : 1945 (Age: 80) Specimen Information: COLLECTED: 05/16/2025 RECEIVED: 05/17/2025 REPORTED: 05/18/2025 Submitting Physician Information: Alysha Rodgers M.D. [address] [place] [address] , DERMATOPATHOLOGY REPORT RESULTS DIAGNOSIS: A. SKIN, LEFT DISTAL PRETIBIAL REGION, SHAVE BIOPSY: SQUAMOUS CELL CARCINOMA, WELL-DIFFERENTIATED, SURFACE OF LESION B. SKIN, LEFT PROXIMAL PRETIBIAL REGION, SHAVE BIOPSY: SQUAMOUS CELL CARCINOMA, WELL-DIFFERENTIATED, SURFACE OF LESION C. SKIN, LEFT PROXIMAL PRETIBIAL REGION, SHAVE BIOPSY: BENIGN LICHENOID KERATOSIS sxt/isr By this signature, I attest that the above diagnosis is based upon my personal examination of the slides(and/or other material indicated in the diagnosis). Sandi Rankin M.D. Report Electronically Reviewed and Signed Out By Sandi Rankin M.D. 05/18/2025 16:00:25 CLINICAL INFORMATION A-C. R/O SCC SPECIMEN DATA MICROSCOPIC DESCRIPTION: A-B. There is a proliferation of atypical keratinocytes with pink cytoplasms that extend in bulbous aggregates from the epidermis to the base of the biopsy specimen. (C44.92) C.There is hyperkeratosis, irregular epidermal hyperplasia and a lichenoid inflammatory cell infiltrate that obscures the dermo-epidermal junction where there are numerous necrotic keratinocytes. (D23.9) GROSS DESCRIPTION: A. Received in a formalin-containing bottle is a superficial fragment of pale dennis, finely scaling and hair-bearing skin measuring 1.2 by 0.8 by 0.3 cm. The surgical margin is inked blue. The specimen bears a centrally located, pink-dennis, scaly area measuring 0.8 by 0.6 cm. The specimen is sectioned into 3 pieces and submitted entirely in a single cassette. Due to shrinkage, measurements may be different than those at the time of procedure. B. Received in a formalin-containing bottle is a superficial fragment of pale dennis, finely scaling and hair-bearing skin measuring 1.3 by 0.8 by 0.2 cm. The surgical margin is inked blue. The specimen bears a pink-dennis, scaly area that may abut the peripheral margin measuring 0.8 by 0.6 cm. The specimen is sectioned into 3 pieces and submitted entirely in a single cassette. Due to shrinkage, measurements may be different than those at the time of procedure. C. Received in a formalin-containing bottle is a superficial fragment of pink- dennis, scaly and semi-translucent skin measuring 1.2 by 0.7 by 0.2 cm. The surgical margin is inked blue. The specimen is sectioned into 3 pieces and submitted entirely in a single cassette. Due to shrinkage, measurements may be different than those at time of procedure. exr/mxf ICD-9 ZSD.241 ZSD.1469 Clerical Data A; 47858 B; 90107 C; 42567 The characteristics of special, immunohistochemical, and immunofluorescence stains and in-situ hybridization tests performed by the [facility] were deemed acceptable in ongoing director quality systems measures and in compliance with regulations drawn from the Clinical Laboratory Improvement Act [id number] (CLIA '88). Control reactions for all stains performed were deemed adequate and appropriate by a pathologist prior to evaluation of patient tissue. Some diagnoses were rendered with the assistance of laboratory-developed tests utilizing analyte-specific reagents; the performance characteristic of these tests were determined by [facility] and are not cleared or approved by the [place] Food an Drug administration. Laboratory developed test may only be performed in a facility that is certified by the [facility] as a high-complexity laboratory under CLIA '88. These tests are used for clinical purposes and are not investigational. Alysha Rodgers MD LAB PATHOLOGY ORDERABLES Final Result * SCAN - PATHOLOGY (05/08/2025) Provider Scanning Final Result * Surgical pathology (05/08/2025 12:00 AM CDT) Skin, punch biopsy 05/08/2025 05/09/2025 7:49 AM CDT Narrative 05/11/2025 2:58 PM CDT EPIC results best viewed via link to PDF [facility] [address] [place] [address], [address], [place] [address] [email or web address] Note to Patients: This report may contain a detailed description of human tissue sent by a health care provider to the laboratory for pathologic evaluation. The content of this report is essential for diagnosis and may provide important critical findings. This information may be unfamiliar to patients to review without a medical professional present. It is advised that the patient review this report in the presence of a health care provider who can answer questions and explain the details. FINAL REPORT Patient Information: PATIENT NAME: VERONA TRUONG SEX: F : 1945 (Age: 80) Specimen Information: COLLECTED: 05/08/2025 RECEIVED: 05/09/2025 REPORTED: 05/11/2025 Submitting Physician Information: Alysha Rodgers M.D. [address] [place] [address] , DERMATOPATHOLOGY REPORT RESULTS DIAGNOSIS: SKIN, LEFT DISTAL PRETIBIAL, PUNCH BIOPSY: SQUAMOUS CELL CARCINOMA, WELL-DIFFERENTIATED, AT LEAST SUPERIFICIALLY INVASIVE Note: Multiple sections through the tissue block have been cut and studied. sy/lac By this signature, I attest that the above diagnosis is based upon my personal examination of the slides(and/or other material indicated in the diagnosis). Araceli Springer M.D. Report Electronically Reviewed and Signed Out By Araceli Springer M.D. 05/11/2025 14:58:53 CLINICAL INFORMATION FRIABLE RED NODULE; R/O SQUAMOUS CELL CARCINOMA VS GRANULATION TISSUE SPECIMEN DATA MICROSCOPIC DESCRIPTION: Atypical keratinocytes with abundant pink cytoplasms extend from the undersurface of the epidermis into at least the upper dermis. (C44.92) GROSS DESCRIPTION: Received in a formalin-containing bottle is a cylindrical piece of pale dennis, finely scaling skin and adipose tissue measuring 0.3 by 0.2 by 0.2 cm. The surgical margin is inked blue. The specimen is submitted entirely in a single cassette. Due to shrinkage, measurements may be different than those at time of procedure. sxt/dxv ICD-9 A; ZSD.1469 Clerical Data A; 07218 The characteristics of special, immunohistochemical, and immunofluorescence stains and in-situ hybridization tests performed by the [facility] were deemed acceptable in ongoing director quality systems measures and in compliance with regulations drawn from the Clinical Laboratory Improvement Act av0563 (CLIA '88). Control reactions for all stains performed were deemed adequate and appropriate by a pathologist prior to evaluation of patient tissue. Some diagnoses were rendered with the assistance of laboratory-developed tests utilizing analyte-specific reagents; the performance characteristic of these tests were determined by [facility] and are not cleared or approved by the [place] Food an Drug administration. Laboratory developed test may only be performed in a facility that is certified by the [facility] as a high-complexity laboratory under CLIA '88. These tests are used for clinical purposes and are not investigational. Alysha Rodgers MD LAB PATHOLOGY ORDERABLES Final Result * Screening Mammogram Bilateral W Janusz (04/16/2025 10:11 AM CDT) Anatomical Region Laterality Modality Breast Bilateral Mammography Impressions 04/18/2025 8:29 AM CDT Bilateral No evidence of malignancy in either breast. OVERALL BI-RADS FINAL ASSESSMENT: 1 - Negative RECOMMENDATION: Recommend bilateral annual screening mammography. Narrative 04/18/2025 8:29 AM CDT EXAMINATION: Screening Mammogram Bilateral W Janusz: 04/16/2025 COMPARISON: Relevant prior studies available at the time of interpretation were reviewed, including the most recent mammogram on: 04/14/2024. TECHNIQUE: Mammography was performed with 2D and 3D digital breast tomosynthesis (DBT) images. CAD was utilized. BREAST PARENCHYMAL COMPOSITION: The breasts are heterogeneously dense, which may obscure small masses. FINDINGS: Bilateral There is no suspicious mass, calcification, or architectural distortion in either breast. Self Screening Mammogram IMG MAMMO PROCEDURES Fi nal Result from Last 3 Months Insurance MEDICARE FOR LIFE MEDICARE FOR LIFE MEDICARE FOR LIFE MEDICARE FOR LIFE Advance Directives For more information, please contact: [phone] * Full Code (Latest Code Status on File) Date Activated Date Inactivated Comments 08/17/2024 12:13 AM 08/17/2024 5:27 PM Care Teams Medical Office Technology Instructor Relationship Specialty Start Date End Date Sarbjit Miller MD [address] [facility] [address] [place] [address] PCP - General 06/29/17 Andrew Kinsey MD [address] DIV IM DERMATOLOGY, [facility] [[email or web address] [address] [place] [address] Drum Sander Dermatology 05/29/25 Maxwell Sosa MD [address] [facility] DIV IM MEDICAL ONCOLOGY, [facility] [[email or web address]] [address] [place] [address] Medical Oncologist/Product Development Chemist Medical Oncology 05/29/25
--- OUTSIDE RECORDS SUMMARY | 2025-07-16 16:34 | XMS_ITS | Encounter Summary ---
Author Organization [facility] Address [address] [facility] [address] [place] [address] Phone Care Team Providers Care Patient Relations Director Name Role Phone Chiquita Miller MD Primary Care Provider + Andrew Kinsey MD Unavailable [phone] Maxwell Sosa MD Unavailable [phone] Encounter Details Date Type Department Care Team (Late st Contact Info) Description 05/29/2025 Results Follow-Up [facility] [address] [facility] Advanced Medicine 5th [place] [address] [place] [address] Chiquita Miller MD [address] [facility] [address] [place] [address] Influenza A/B, RSV, and COVID-19 PCR Nasopharyngeal, US Vein Duplex Lower Extremity Bilateral Complete, Basic metabolic panel, Additional followed-up results: 6 Social History Tobacco Use Types Packs/Day Years Used Date Smoking Tobacco: Former Cigarettes Q uit: 1976 Smokeless Tobacco: Never Alcohol Use Standard Drinks/Week Comments No 0 (1 standard drink = 0.6 oz pur e alcohol) [facility] Utilities Answer Date Recorded In the past 12 months has [employer] electric, gas, oil, or water company threatened [...] week 02/08/2025 How often do you attend buddhism or faith serv ices? Patient declined 02/08/2025 Do you belong to any clubs o r organizations such as buddhism groups, unions, fraternal or athletic groups, or [...] Recorded Patient Health Questionnaire-2 Score 0 02/08/2025 [facility] of Occupat ional Health - Occupational Stress [...] any time in the past 12 m [facility], were you homeless or living in a prison (including now)? No 02/08/2025 Personal Safety Answer Date Recorded Have you ever been in or are you currently in a harmful physical or emotional relationship or is someone making you feel afraid or unsafe? 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 Most likely you had rhinovirus or enterovirus, and yoursymptoms should continue to improve. documented in this encounter Plan of Treatment Not on file documented as of this encounter Visit Diagnoses Not on filedocumented in this encounter Additional Health Concerns Infection Onset Date Last Indicated Resolved Time COVID: Suspected 05/29/2025 05/29/2025 05/29/2025 4:46 PM CDT documented as of this encounter Care Teams Patient Relations Director Relationship Specialty Start Date End Date Chiquita Miller MD [address] [address] PCP - General 06/29/17 Andrew Kinsey MD [address] [facility] DIV DERMATOLOGY, [facility] [address] [place] [address] Steeping Press Tender Dermatology 05/29/25 Maxwell Sosa MD [address] [facility] DIV MEDICAL ONCOLOGY, [facility] [address] [place] [address] Medical Oncologist/Belt Molder Medical Oncology 05/29/25 documented as of this encounter
--- OUTSIDE RECORDS SUMMARY | 2025-07-16 16:34 | XMS_ITS | Encounter Summary ---
Author Organization [facility] Address [address] [facility] [address] [place] [address] Phone Care Team Providers Care Frozen Yogurt Maker Name Role Phone Chiquita Miller MD Primary Care Provider + Andrew Kinsey MD Unavailable [phone] Maxwell Sosa MD Unavailable [phone] Encounter Details Date Type Department Care Team (Late st Contact Info) Description 07/16/2025 [facility] [address] [facility] Advanced Medicine 5th [address] [place], [place] [id number] Genevieve Dillon Social History Tobacco Use Types Packs/Day Years Used Date Smoking Tobacco: Former Cigarettes Q uit: 1976 Smokeless Tobacco: Never Alcohol Use Standard Drinks/Week Comments No 0 (1 standard drink = 0.6 oz pur e alcohol) [facility] Utilities Answer Date Recorded In the past 12 months has [employer], gas, oil, or water [employer] threatened to shut off services in your home? No 02/08/2025 Social Connection and Isolation Panel Answer Date Recorded In a typical week, how many times do you talk on the phone with family, friends, or neighbors? Twice a week 02/08/2025 How often do you get togethe r with friends or relatives? Once a week 02/08/2025 How often do you attend judaism or anabaptism serv ices? Patient declined 02/08/2025 Do you belong to any clubs o r organizations such as judaism groups, unions, fraternal or athletic groups, or [...] Recorded Patient Health Questionnaire-2 Score 0 02/08/2025 [facility] - Occupational Stress Questionnaire Answer Date Recorded [...] any time in the past 12 m [facility], were you homeless or living in a longterm (including now)? No 02/08/2025 Personal Safety Answer Date Recorded Have you ever been in or are you currently in a harmful physical or emotional relationship or is someone making you feel afraid or unsafe? Denies 07/02/2025 Comments No Sex and Gender Information Value Date Recorded Sex Assigned at Not on file Legal Sex Female 1:59 AM CYBER INTELLIGENCE ANALYST Gender Identity Female 03/21/2024 3:36 PM CDT Sexual Orientation Straight 03/21/2024 3: 36 PM CDT Occupation Industry Job Start Date Job End Date RETIRED Not on file Not on file Not on file documented as of this encounter Miscellaneous Notes * Telephone Encounter - Peyton Alonso - 07/16/2025 3:43 PM CST Spoke w/ Lee/TOAN, she called the pt to discuss Rehab adm & Joe/ told her pt has worsened & he is not able to take her anywhere without an ambulance. She talked to her Physician & he recommended pt go to the ER. R INTELLIGENCE ANALYST * Telephone Encounter - Peyton Alonso - 07/16/2025 2:00 PM CST Spoke vitor/ Lee/TOAN/[phone], Inquiring if pt is getting OP infusions? States insurance won't cover OP infusion while pt is IP Acute rehab. R INTELLIGENCE ANALYST * Telephone Encounter - Genevieve Dillon - 07/16/2025 1:08 PM CYBER INTELLIGENCE ANALYST [facility] calling regarding a referral that she received. R INTELLIGENCE ANALYST documented in this encounter Plan of Treatment Not on file documented as of this encounter Visit Diagnoses Not on filedocumented in this encounter Care Teams Frozen Yogurt Maker Relationship Specialty Start Date End Date Chiquita Miller MD [address] [facility] [address] [place] [address] PCP - General 06/29/17 Andrew Kinsey MD [address] DIV DERMATOLOGY, [facility] [address] [place] [address] Claims Specialist Dermatology 05/29/25 Maxwell Sosa MD [address] [facility] DIV MEDICAL ONCOLOGY, [facility] [address] [place] [address] Medical Oncologist/Compensation Coordinator Medical Oncology 05/29/25 documented as of this encounter
--- OUTSIDE RECORDS SUMMARY | 2025-07-16 16:34 | XMS_ITS | Encounter Summary ---
Author Organization [facility] Address [address] [place] [address] Phone Care Team Providers Care Plate Colorer Name Role Phone Chiquita Miller MD Primary Care Provider + Andrew Kinsey MD Unavailable [phone] Maxwell Sosa MD Unavailable [phone] Encounter Details Date Type Department Care Team (Latest Contact Info) Description 05/08/2025 Orders Only [facility] Scanning, Provider Social History Tobacco Use Types Packs/Day Years Used Date Smoking Tobacco: Former Cigarettes Q uit: 1976 Smokeless Tobacco: Never Alcohol Use Standard Drinks/Week Comments No 0 (1 standard drink = 0.6 oz pur e alcohol) [facility] Utilities Answer Date Recorded In the past 12 months has [employer], gas, oil, or water [employer] threatened to shut off services in your home? No 02/08/2025 Social Connection and Isolation Panel Answer Date Recorded In a typical week, how many times do you talk on the phone with family, friends, or neighbors? Twice a week 02/08/2025 How often do you get togethe r with friends or relatives? Once a week 02/08/2025 How often do you attend taoist or episcopal serv ices? Patient declined 02/08/2025 Do you belong to any clubs o r organizations such as taoist groups, unions, fraternal or athletic groups, or [...] Recorded Patient Health Questionnaire-2 Score 0 02/08/2025 [facility] of Occupat ional Health - Occupational Stress [...] any time in the past 12 m [facility], were you homeless or living in [...] on file Legal Sex Female 1:59 AM TOLL COLLECTOR Gender Identity Female 03/21/2024 3:36 PM CDT Sexual Orientation Straight 03/21/2024 3: 36 PM CDT Occupation Industry Job Start Date Job End Date RETIRED Not on file Not on file Not on file documented as of this encounter Plan of Treatment Not on file documented as of this encounter Procedures Procedure Name Priority Date/Time Associated Diagnosis Comments SCAN - PATHOLOGY 05/08/2025 documented in this encounter Results * SCAN - PATHOLOGY (05/08/2025) Provider Scanning Final Result documented in this encounter Visit Diagnoses Not on filedocumented in this encounter Additional Health Concerns Infection Onset Date Last Indicated Resolved Time COVID: Suspected 05/29/2025 05/29/2025 05/29/2025 4:46 PM CDT documented as of this encounter Care Teams Plate Colorer Relationship Specialty Start Date End Date Chiquita Miller MD [address] [facility] [address] [place] [address] PCP - General 06/29/17 Andrew Kinsey MD [address] DIV IM DERMATOLOGY, [address] [place] [address] Mechanic Driver Dermatology 05/29/25 Maxwell oSsa MD [address] [facility] [address] DIV IM MEDICAL ONCOLOGY, [facility] [address] [place] [address] Medical Oncologist/Hop Grower Medical Oncology 05/29/25 documented as of this encounter
--- OUTSIDE RECORDS SUMMARY | 2025-07-16 16:34 | XMS_ITS ---
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 FOL symptoms and persistent scotoma are not C/w migrainous aura. Pt denies GCA symptoms of weight loss, diplopia, scalp tenderness, and myalgias. 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 Refer [...] 07/31/2020 Assessment & Plan (11/20/2020 5:10 PM PRODUCT/INDUSTRY CONSULTANT): PCO OU S/p YAG OU OD doing well OS with central floater improving Will not plan on YAGing given do not want to increase floaters Monitor in 4 months, sooner for concerns Assessment & Plan (10/09/2020 2:00 PM PRODUCT/INDUSTRY CONSULTANT): PCO OU S/p YAG OU OD doing [...] plan Assessment & Plan (09/11/2020 5:28 PM PRODUCT/INDUSTRY CONSULTANT): S/p YAG OU OD clear and improved OS with tag of PCO left Plan touch up YAG OS today Follow 4 weeks, back to [facility] after this Assessment & Plan (07/31/2020 1:05 PM PRODUCT/INDUSTRY CONSULTANT): PCO OU Plan for YAG OU today Follow 4 weeks Physical exam 07/25/2020 Coronary artery disease invo lving [place] heart without angina pectoris 07/25/2020 Vitamin B12 deficiency 07/25/2020 Vitamin D deficiency 07/25/2020 Hyperparathyroidism 07/25/2020 Choroidal nevus, 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 Quezada in 6 months Assessment & Plan (02/04/2022 1:37 PM CDT): Stable on DFE today Monitor annually Assessment & Plan (07/31/2020 1:06 PM PRODUCT/INDUSTRY CONSULTANT): Following on DFEs with Dr. Meehan Pseudophakia, both eyes 06/05/2020 Assessment & Plan (05/11/2022 4:40 PM CDT): Lenses centered and stable, monitor Assessment & Plan (02/04/2022 1:38 PM CDT): Doing well without concerns Needs new Rx IOP check and Rx with Dr. Quezada, to ma 1 year for DFE/HVF/OCT Assessment & Plan (08/06/2021 1:11 PM PRODUCT/INDUSTRY CONSULTANT): Stable both eyes Assessment & Plan (03/26/2021 [...] stable Assessment & Plan (09/21/2024 1:53 PM PRODUCT/INDUSTRY CONSULTANT): Excellent intraocular pressure (IOP) both eyes (OU) FU Dr De La Torre as scheduled Assessment & Plan (08/16/2024 3:38 PM PRODUCT/INDUSTRY CONSULTANT): G/S OU IOP at goal Follow 1 year with Britt for testing Assessment & Plan (01/26/2024 2:17 PM CDT): G/S OU IOP at goal HVF OU wnl OCT OU wnl Follow 1 year with Britt for testing Assessment & Plan (08/11/2023 9:35 PM PRODUCT/INDUSTRY CONSULTANT): Doing well IOP At goal CPM Follow [...] concerns Assessment & Plan (08/06/2021 1:11 PM PRODUCT/INDUSTRY CONSULTANT): IOP at goal OU Doing well with no concerns HVF stable and full OCT wnl Follow 6 months with DFE Assessment & Plan (03/26/2021 11:57 AM CDT): Glaucoma suspect both eyes IOP at goal Follow 6 months with HVF/OCT, sooner for concerns Assessment & Plan (07/31/2020 1:06 PM PRODUCT/INDUSTRY CONSULTANT): Low risk Normal IOP, borderline cupping Continue with Dr. Meehan High risk medication use 05/26/2018 Assessment & Plan (08/16/2024 3:42 PM PRODUCT/INDUSTRY CONSULTANT): Normal OCT both eyes (OU) FU for [...] Essential hypertension 08/20/2010 Tingling of skin 12/03/2006 Current Treatment and Therapy Plans Cetuximab Weekly (D1, D8, D15, D22) 28 day Cycles - Head and Neck* Plan Start Date:06/17/2025 Plan Provider:Maxwell Sosa MD Linked Problems Squamous cell carcinoma of l eg, left Treatment Medications Current Day (Day 2 2, Cycle 1 - Planned for 07/16/2025) Next Day (Day 1, Cycle 2 - Planned for 07/23/2025) cetuximab (ERBITUX) cetuximab (ERBITUX) intravenous solution 486 mg cetuximab (ERBITUX) intravenous solution 486 mg Past Treatment and Therapy Plans No past plan information found. Lifetime Dose Tracking * Chemical Lifetime Dose Automatic Entry Manual Entr y DLP 5,747 mGycm 5,747 mGycm 0 mGycm
--- OUTSIDE RECORDS SUMMARY | 2025-07-16 16:34 | XMS_ITS | Encounter Summary ---
Author Organization [facility] Address [address] [address] Phone Care Team Providers Care Forest Law And Policy Professor Name Role Phone Roman Manuel DO Primary Care Provider Roman Manuel DO Primary Care Provider Chiquita Miller MD Primary Care Provider + Renaldo Hernandez MD Primary Care Prov ider Chiquita Miller MD Primary Care Provider + Chiquita Miller MD Primary Care Provider + Andrew Kinsey MD Unavailable [phone] Maxwell Sosa MD Unavailable [phone] Encounter Details Date Type Department Care Team (Late st Contact Info) Description 07/11/2002 Orders Only [place] [facility] [address] [facility] 5th Floor [address] [place], [place] [id number] Scanning, Provider Social History Tobacco Use Types Packs/Day Years Used Date Smoking Tobacco: Never Assessed Comments Unknown Sex and Gender Information Value Date Recorded Sex Assigned at Not on file Legal Sex Female 1:59 AM DELINQUENT TAX COLLECTION ASSISTANT Gender Identity Female 03/21/2024 3:36 PM CDT [...] COVID: Suspected 10/10/2024 10/10/2024 10/10/2024 10:06 PM DELINQUENT TAX COLLECTION ASSISTANT COVID: Suspected 05/29/2025 05/29/2025 05/29/2025 4:46 PM CDT documented as of this encounter Care Teams Forest Law And Policy Professor Relationship Specialty Start Date End Date Roman Manuel DO PCP - General 05/30/12 03/29/17 Roman Manuel DO PCP - General 06/22/11 05/29/12 Chiquita Miller MD [address] [place] [address] PCP - General 03/30/17 03/30/17 Renaldo Hernandez MD [address] [place] [address] PCP - General 03/31/17 04/05/17 Chiquita Miller MD [address] [place] [address] PCP - General 04/06/17 06/28/17 Chiquita Miller MD [address] [place] [address] PCP - General 06/29/17 Andrew Kinsey MD [address] DIV IM DERMATOLOGY, [facility] [address] [place] [address] Horse Groomer Dermatology 05/29/25 Maxwell Sosa MD [address] DIV IM MEDICAL ONCOLOGY, [facility] [address] [place] [address] Medical Oncologist/Hospital Intern Medical Oncology 05/29/25 documented as of this encounter
[2025-07-16 16:37] LABS: Hematocrit 35.0 % (37.0-47.0); Hemoglobin 11.5 g/dL (12.0-15.0); Immature Granulocyte Percent A 0.3 % (0-0.5); Lymphocytes Absolute Auto 0.85 K/mm3 (0.9-3.2); Mean Corpuscular HGB Conc 32.9 g/dl (32-36); Mean Corpuscular Hemoglobin 32.4 pg (26-34); Mean Corpuscular Volume 98.6 fl (80-100); Nucleated Red Blood Cells Absolute Auto 0.000 K/mm3 (0.0-0.012); Nucleated Red Blood Cells Perc 0.0 % (0.0-0.2); Platelet Count Result 260 k/mm3 (150-375); Red Blood Count 3.55 M/mm3 (4.2-5.4); White Blood Count 5.9 K/mm3 (4.5-10.0)
--- NOTE | 2025-07-16 16:39 | ED_ITS ---
HPI - Weakness General Chief complaint: Weakness Stated complaint: pain after fall 2 weeks ago Time Seen by Provider: 07/16/25 16:23 History of Present Illness HPI Narrative: Patient was found to have a pelvis fracture 2 weeks ago after fall, symptoms she has still been able to walk around, but has been getting more progressively weak, PCP sent here for likely admission to rehab. Related Data Allergies Allergy/AdvReac Type Severity Reaction Status Date / Time Aminoglycosides Allergy Severe SEVERE Verified 07/16/25 16:27 PAIN & NO HELP TO SITE bacitracin Allergy Severe SEVERE Verified 07/16/25 16:27 PAIN & NO HELP TO SITE neomycin Allergy Severe SEVERE Verified 07/16/25 16:27 PAIN & NO HELP TO SITE polymyxin B Allergy Severe PAIN AND Verified 07/16/25 16:27 NO HELP TO SITE Sulfa (Sulfonamide Allergy Severe THROAT Verified 07/16/25 16:27 Antibiotics) CLOSES adhesive Allergy Intermediate SKIN RASH, Verified 07/16/25 16:27 REACTION Review of Systems 2 Review of Systems: All systems reviewed & are unremarkable except as noted in HPI and below Exam 2 Narrative: EXAMINATION OF ORGAN SYSTEMS/BODY AREAS: Constitutional: Vital signs per nursing GENERAL:[No acute distress, non-toxic appearing.] Quite malodorous HEAD: Normal with no signs of head trauma. EYES: EOMI, conjunctiva normal ENT: Hearing grossly intact LUNGS: Nonlabored breathing. HEART: [Regular rate and rhythm] ABD: [Soft], [nontender to palpation] EXT: Normal range of motion without obvious acute abnormality SKIN: Large amount of bruising to left hip NEURO: [Alert. No gross focal sensory or strength deficits.] PSYCH: Normal affect Course Vital Signs Vital signs: Vital Signs Temperature 98.5 F 07/16/25 16:21 Pulse Rate 73 07/16/25 16:21 Respiratory Rate 20 07/16/25 16:21 Blood Pressure 158/68 H 07/16/25 16:21 Pulse Oximetry 94 07/16/25 16:21 Oxygen Delivery Room Air 07/16/25 16:21 Temperature 98.5 F 07/16/25 16:21 Pulse Rate 62 07/16/25 17:43 Respiratory Rate 18 07/16/25 17:43 Blood Pressure 129/81 07/16/25 17:43 Pulse Oximetry 96 07/16/25 17:43 Oxygen Delivery Room Air 07/16/25 16:21 MDM - Weakness MDM Narrative Medical decision making narrative: Patient was found to have a pelvis fracture 2 weeks ago after fall, symptoms she has still been able to walk around, but has been getting more progressively weak, PCP sent here for likely admission to rehab. On exam she does have some bruising to her left hip, does smell of urine. She was cleaned up here, labs obtained are within acceptable limits, including urine without signs of UTI. is now here at bedside, I did discuss the plan for admission here so she can be placed to rehab in the morning since it is after 5 now and after speaking care coordination, he recommended she be admitted since there is no placement to be done at this time. is angry that she is here at [facility] and demands she be transferred to another facility; he wants her to go to [facility]. I tried to explain that a lateral transfer likely not be possible, he is insisting on it anyway. I did also call her primary care doctor and spoke with Dr. Miller, who is agreeable with patient being admitted here but if the will not be happy unless she is at another facility, that I can try to transfer her; she has also already spent the whole day trying to get her transferred to a rehab facility, when the patient had been bed-bound for the entire weekend. I did call transfer Center, and spoke with the hospitalist there who refuses the transfer since this is a lateral transfer. I did go back to the room and updated the patient and , let them know that this should not change the final disposition which is that she can be admitted here for the night and likely go to the rehab of her choice tomorrow morning, the is still angry and says do I look happy to be here I did let him know that we are not holding them here against their will and that if they want to leave against medical advice to take themselves to the facility of their choice, they can. He got even angrier and asked if I was kicking them out. I again reiterated my recommendation which was admission here for the night, so they can go to rehab tomorrow. They are now agreeable to this. Spoke with hospitalist and Orthopedics for admission. Lab Data 07/16/25 16:32 07/16/25 16:32 Labs: Lab Results 07/16/25 07/16/25 Range/Units 16:32 16:36 WBC 5.9 (4.5-10.0) K/mm3 RBC 3.55 L (4.2-5.4) M/mm3 Hgb 11.5 L (12.0-15.0) g/dL Hct 35.0 L (37.0-47.0) % MCV 98.6 (80-100) fl MCH 32.4 (26-34) pg MCHC 32.9 (32-36) g/dl RDW 16.2 H (11.5-14.5) % Plt Count 260 (150-375) k/mm3 MPV 8.5 (7.4-10.4) fl Immature Gran % (Auto) 0.3 (0-0.5) % Neut % (Auto) 71.8 (45.5-73.1) % Lymph % (Auto) 14.4 L (18.3-44.2) % [place] % (Auto) 8.1 (2.6-8.5) % Eos % (Auto) 4.6 H (0-4.4) % Baso % (Auto) 0.8 (0.2-1.2) % Lymph # (Auto) 0.85 L (0.9-3.2) K/mm3 [place] # (Auto) 0.5 (0.1-0.6) K/mm3 Eos # (Auto) 0.3 (0-0.3) K/mm3 Baso # (Auto) 0.1 (0.0-0.1) K/mm3 Abs Immat Gran (auto) 0.02 (0.00-0.031) K/mm3 Absolute Neuts (auto) 4.3 (1.3-6.7) K/mm3 Absolute Nucleated RBC 0.000 (0.0-0.012) K/mm3 Nucleated RBC % 0.0 (0.0-0.2) % Sodium 139 (137-145) mmol/L Potassium 3.6 (3.4-5.0) mmol/L Chloride 107 (98-107) mmol/L Carbon Dioxide 22 (22-30) mmol/L Anion Gap 10 (4-12) mmol/L BUN 19 H (7-17) mg/dL Creatinine 0.82 (0.7-1.0) mg/dL Estim Creat Clear Calc 49 ml/min Estimated GFR > 60 (59 - ) Glucose 96 (65-110) mg/dL Calcium 8.8 (8.4-10.2) mg/dL Urine Color Yellow (Yellow) Urine Appearance Clear (Clear) Urine pH 5.0 (5.0-9.0) Ur Specific [place] 1.018 (1.001-1.035) Urine Protein 1+ H (Negative) mg/dL Urine Glucose (UA) 3+ H (Negative) mg/dL Urine Ketones Negative (Negative) mg/dL Ur Blood (Man) Negative (Negative) Urine Nitrate Negative (Negative) Urine Bilirubin Negative (Negative) Urine Urobilinogen 0.2 (<2.0) mg/dL Leukocyte Esterase Rfl Negative (Negative) KELSI/UL Urine RBC 0-2 (0-2) /hpf Urine WBC 0-5 (0-3) /hpf Ur Squamous Epith Cells None seen (Few) /hpf Urine Bacteria None seen /hpf Urine Casts 0-2 Discharge Plan Discharge Clinical Impression: Closed sacral fracture Patient Disposition: Still a Patient Condition: Stable Patient Language: Czech Follow-up/Referrals: PHYSICIAN NOT ON STAFF,NONSTAFF [Primary Care Provider]
[2025-07-16 16:50] LABS: Add Urine Microscopic? YES; Appearance Urine Clear (Clear); Glucose Urine UA 3+ mg/dL (Negative); Leukocyte Esterase Ur Negative LEU/UL (Negative); Nitrate Urine Negative (Negative); Non Pathogenic Casts 0-2; Specific Grav Ur 1.018 (1.001-1.035)
[2025-07-16 16:57] LABS: Anion Gap 10 mmol/L (4-12); Blood Urea Nitrogen 19 mg/dL (7-17); Calcium 8.8 mg/dL (8.4-10.2); Carbon Dioxide 22 mmol/L (22-30); Chloride 107 mmol/L (98-107); Estimated CRCL calculation 49 ml/min; Estimated Glomerular Filt Rate > 60; Glucose 96 mg/dL (65-110); Potassium 3.6 mmol/L (3.4-5.0); Sodium 139 mmol/L (137-145)
[2025-07-16 17:43] VITALS: BP 129/81; PULSE 62; RESP 18; O2SAT 96
--- NOTE | 2025-07-16 18:50 | PC.NURSE ---
Pts at RN station asking for Charge Nurse. This RN introduced myself. He stated initially that he felt like this hospital was only here for the money and that we were keeping his in a fpc. states is upset that we are not transferring his to another hospital. Attempted to explain EMTALA law to him multiple times. He then is asking why his primary care doctor cannot accept patient. Attempted to explain that most primary care providers now use hospitalist group to admit. He is still upset at the end of our conversation. Patient advocate card given to him. He states that if there is a situation that we would let me give some input into, for us to call him.
[2025-07-16 20:00] VITALS: BP 136/86; PULSE 77; RESP 20; TEMP 36.2; O2SAT 98
[2025-07-16 20:06] VITALS: BMI 31.4
--- NOTE | 2025-07-16 20:06 | ADMGEN ---
This patient, Verona Arango, was admitted to [facility] Surg Room 322-01. Patient/family oriented to hospital policies and general routines including ID bracelet, bed and alarms, visiting hours, pain management, procedures, bathroom and other care routines, personal items, smoking policy, room service/diet, and visiting hours. Information on how to activate the Rapid Response Team has been discussed. Patient/Family are encouraged to report perceived risks to care and to ask questions if they do not understand what they are told or what they should do.
--- NOTE | 2025-07-16 21:05 | WNDPHOTO ---
PHOTO ONLY - See Nursing Notes and/ or assessments for documentation.
--- NOTE | 2025-07-16 21:38 | PM.IMHP ---
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 She was getting a transfusion with [facility] and she fell. She was transferred to [facility], x-rays did not reveal any fracture. She was sent home. PCP sent the patient back to [facility] which revealed a sacral fracture. The patient was sent home, she has been getting progressively weak. She has a lot of pain. No decreased sensation or focal weakness. No urinary incontinence, no fecal incontinence. Pelvis CT without contrast demonstrates acute displaced vertical left sacral fracture, orthopedic surgery consulted. Refer to ER physician's note, patient's demanded transfer, they contacted [facility] and the hospitalist refuse transfer due to it being a lateral transfer. The was verbally cantankerous but ultimately agreed for admission, orthopedic surgery consultation and placement. Review of Systems Review of Systems: All systems reviewed & are unremarkable except as noted in HPI and below (Subjective) [facility] Family History Family History (Updated 07/16/25 @ 20:18 by Aurelia Mcintosh RN) Sibling Carotid artery disease Mother Uterine cancer Social History Social History Smoking status: Former smoker Tobacco type: cigarettes Alcohol intake: never Lack of Transportation: No Lack of Food: Never True Current Housing: I Have Housing Concerned About Future Housing: No Difficulty Paying Gas/Electric Bills: No Difficulty Paying for Meds: No Currently Unemployed: No Education: High School Diploma/GED Difficulty w/ Childcare or Family Care: Decline to Answer Spiritual care concerns: No Meds Home Medications and Allergies Home Medications ?Medication ?Instructions ?Recorded ?Confirmed ?Type amlodipine 5 mg tablet 5 mg PO HS 07/16/25 07/16/25 History aspirin 81 mg chewable tablet 81 mg PO BID 07/16/25 07/16/25 History atorvastatin 40 mg tablet 80 mg PO HS 07/16/25 07/16/25 History bisacodyl 5 mg tablet 5 mg PO DAILY PRN constipation 07/16/25 07/16/25 History cholecalciferol (vitamin D3) 50 4,000 unit PO DAILY 07/16/25 07/16/25 History mcg (2,000 unit) capsule (Vitamin D3) empagliflozin 10 mg tablet 10 mg PO QID 07/16/25 07/16/25 History (Jardiance) fluticasone propionate 50 1 spray intranasal BID PRN allergy 07/16/25 07/16/25 History mcg/actuation nasal symptoms spray,suspension folic acid 400 mcg tablet 400 mcg PO HS 07/16/25 07/16/25 History furosemide 40 mg tablet 40 mg PO TID 07/16/25 07/16/25 History hydrocodone 5 mg-acetaminophen 325 1 tablet PO Q4-6H PRN pain (scale 07/16/25 07/16/25 History mg tablet score 4-6) hydroxychloroquine 200 mg tablet 200 mg PO QID 07/16/25 07/16/25 History (Plaquenil) isosorbide mononitrate 60 mg 60 mg PO BID 07/16/25 07/16/25 History tablet,extended release 24 hr losartan 25 mg tablet 25 mg PO QID 07/16/25 07/16/25 History metoprolol tartrate 25 mg tablet 25 mg PO BID 07/16/25 07/16/25 History mupirocin 2 % topical ointment 1 applic topical DAILY 07/16/25 07/16/25 History omeprazole 40 mg capsule,delayed 40 mg PO QID 07/16/25 07/16/25 History release polyethylene glycol 3350 17 17 g PO DAILY PRN constipation 07/16/25 07/16/25 History gram/dose oral powder ranolazine 500 mg tablet,extended 500 mg PO QID 07/16/25 07/16/25 History release,12 hr Allergies Allergy/AdvReac Type Severity Reaction Status Date / Time Aminoglycosides Allergy Severe SEVERE Verified 07/16/25 20:14 PAIN & NO HELP TO SITE bacitracin Allergy Severe SEVERE Verified 07/16/25 20:14 PAIN & NO HELP TO SITE neomycin Allergy Severe SEVERE Verified 07/16/25 20:14 PAIN & NO HELP TO SITE polymyxin B Allergy Severe PAIN AND Verified 07/16/25 20:14 NO HELP TO SITE Sulfa (Sulfonamide Allergy Severe THROAT Verified 07/16/25 20:14 Antibiotics) CLOSES adhesive Allergy Intermediate SKIN RASH, Verified 07/16/25 20:14 REACTION Vital Signs Vital Signs - 24 hr 07/16/25 16:21 07/16/25 17:43 Temperature 98.5 F Pulse Rate 73 62 Respiratory Rate 20 18 Blood Pressure 158/68 H 129/81 Pulse Oximetry 94 96 Oxygen Delivery Room Air Exam Const: General: comfortable and no acute distress HENMT: Mouth: Yes moist mucous membranes Eyes: Pupils: Equal, round and reactive pupils present Neck: Neck: supple Resp: Effort & Inspection: normal respiratory effort Auscultation: clear to auscultation bilaterally Cardio: Rate: regular rate Rhythm: regular rhythm GI: Inspection: non-distended GI Palp: Yes Soft to palpation and No Tenderness to palpation present (GI) : General: Yes bladder normal to palpation Neuro: Other: Flexion at the bilateral hip decreased due to pain. Otherwise exam intact. Extrem: Other: Left pedal pulse dopplerable. Chronic wound, no purulent drainage. Large gluteal soft tissue overlying sacrum. Generalized tenderness to palpation, no bony abnormalities identified. H&P: Results Labs Labs: Short CBC 07/16/25 Range/Units 16:32 WBC 5.9 (4.5-10.0) K/mm3 Hgb 11.5 L (12.0-15.0) g/dL Hct 35.0 L (37.0-47.0) % Plt Count 260 (150-375) k/mm3 BMP 07/16/25 16:32 Sodium 139 Potassium 3.6 Chloride 107 Carbon Dioxide 22 BUN 19 H Creatinine 0.82 Glucose 96 Calcium 8.8 Urine 07/16/25 Range/Units 16:36 Urine Color Yellow (Yellow) Urine Appearance Clear (Clear) Urine pH 5.0 (5.0-9.0) Ur Specific [place] 1.018 (1.001-1.035) Urine Protein 1+ H (Negative) mg/dL Urine Glucose (UA) 3+ H (Negative) mg/dL Assessment and Plan Assessment and plan (1) Closed sacral fracture: Code(s): S32.10XA - Unspecified fracture of sacrum, initial encounter for closed fracture Status: Acute Plan Accu-Cheks q.6 hours. NPO. Bed wrist. Orthopedic surgery consultation. Care coordination for placement. Resume FLOOR BROKER Protonix, resume FLOOR BROKER metoprolol. Hold other antihypertensives. Resume FLOOR BROKER [place] for pain control. Bisacodyl and MiraLax p.r.n.. Hold FLOOR BROKER furosemide. ----- Patient wishes to be full code. Rest. Fall precaution. SCDs. Hospitalist MIPS Advance Care Plan I have confirmed that the patient's Advanced Care Plan is present, code status is documented, or surrogate decision maker is listed in patient medical record.: Yes Medication Reconciliation I have utilized all available resources to obtain, update and review the patients current medications (includes all prescriptions, OTC, herbals, cannabis, and nutritional supplements).: Yes
[2025-07-16 21:52] LABS: INR 1.2; Prothrombin Time 15.3 Seconds (11.1-14.7)
[2025-07-16] MEDS: ATORVASTATIN 40 MG TABLET 80 MG PO (22:43)
[2025-07-16] MEDS: FOLIC ACID 0.4 MG TABLET PO (22:43)
[2025-07-16] MEDS: HYDROcodone/acetaminophen (*CRX) 5-325 MG TABLET 1 TAB PO (22:49)
[2025-07-17 06:00] VITALS: BP 121/54; PULSE 65; RESP 20; TEMP 36.6; O2SAT 96
[2025-07-17 08:10] VITALS: PULSE 65
[2025-07-17] MEDS: METOPROLOL TARTRATE 25 MG TABLET PO ×2 (08:10→20:22)
[2025-07-17] MEDS: HYDROcodone/acetaminophen (*CRX) 5-325 MG TABLET 1 TAB PO ×3 (08:11→20:22)
[2025-07-17] MEDS: PANTOPRAZOLE 40 MG TABLET PO ×2 (08:11→20:21)
--- NOTE | 2025-07-17 08:11 | PM.CNOR ---
Assessment and Plan Assessment and plan (1) Closed sacral fracture: Code(s): S32.10XA - Unspecified fracture of sacrum, initial encounter for closed fracture Status: Acute Assessment and Plan: The patient is a 80-year-old female who presents to the emergency room about 2-3 weeks status post of a fall that occurred at the [facility] in [place] when she was asked to get on the scale. She fell landing onto her buttock and sustained injury to her left sacral body as well as her left 5th digit. She was sent to the emergency room at [facility] and she is here today for evaluation for rehab placement since she is not able to ambulate safely. The patient's history is significant for a right [id number] amputation in 2015 after an embolus into the right lower extremity status post coronary artery bypass surgery at [facility]. She currently has a prosthesis. He states that the prosthesis is fitting okay. She also has a significant history for left leg squamous cell cancer this being treated the [facility] with no surgery at this point and just chemotherapy. She has a very large nonhealing ulcer over the left leg. [facility] has been following her for this problem. She reports not much pain in this area. She does report that she has significant left ankle pain as well as left knee pain after the fall. She has not had any ankle x-rays here on this visit or knee x-rays or left hand x-rays. She currently has a splint over the 5th digit which I removed. The patient will be weight-bearing as tolerated and evaluated by rehab. We will obtain x-rays of her left hand left knee left ankle today. She is to follow up with [facility] for her left leg squamous cell cancer (2) Left ankle pain: Qualifiers: Chronicity: acute Qualified Code(s): M25.572 - Pain in left ankle and joints of left foot Code(s): M25.572 - Pain in left ankle and joints of left foot Status: Acute (3) Left knee pain: Qualifiers: Chronicity: acute Qualified Code(s): M25.562 - Pain in left knee Code(s): M25.562 - Pain in left knee Status: Acute (4) Fracture of phalanx of digit of hand: Qualifiers: Encounter type: initial encounter Fracture type: closed Qualified Code(s): S62.609A - Fracture of unspecified phalanx of unspecified finger, initial encounter for closed fracture Code(s): S62.609A - Fracture of unspecified phalanx of unspecified finger, initial encounter for closed fracture Status: Acute History of Present Illness HPI Consult date: 07/17/25 Chief complaint: Sacral fracture; Inability to walk Narrative: The patient is a 80-year-old female who presents to the emergency room about 2-3 weeks status post of a fall that occurred at the [facility] in [place] when she was asked to get on the scale. She fell landing onto her buttock and sustained injury to her left sacral body as well as her left 5th digit. She was sent to the emergency room at [facility] and she is here today for evaluation for rehab placement since she is not able to ambulate safely. The patient's history is significant for a right qszwf-zal-kklu amputation in 2014 after an embolus into the right lower extremity status post coronary artery bypass surgery at [facility]. She currently has a prosthesis. He states that the prosthesis is fitting okay. She also has a significant history for left leg squamous cell cancer this being treated the [facility] with no surgery at this point and just chemotherapy. She has a very large nonhealing ulcer over the left leg. [facility] has been following her for this problem. She reports not much pain in this area. She does report that she has significant left ankle pain as well as left knee pain after the fall. She has not had any ankle x-rays here on this visit or knee x-rays or left hand x-rays. She currently has a splint over the 5th digit which I removed. [facility] Family History Family History (Updated 07/16/25 @ 20:18 by Aurelia Mcintosh RN) Sibling Carotid artery disease Mother Uterine cancer Social History Social History Smoking status: Former smoker Tobacco type: cigarettes Alcohol intake: never Lack of Transportation: No Lack of Food: Never True Current Housing: I Have Housing Concerned About Future Housing: No Difficulty Paying Gas/Electric Bills: No Difficulty Paying for Meds: No Currently Unemployed: No Education: High School Diploma/GED Difficulty w/ Childcare or Family Care: Decline to Answer Spiritual care concerns: No Meds Home Medications and Allergies Home Medications ?Medication ?Instructions ?Recorded ?Confirmed ?Type amlodipine 5 mg tablet 5 mg PO HS 07/16/25 07/16/25 History aspirin 81 mg chewable tablet 81 mg PO BID 07/16/25 07/16/25 History atorvastatin 40 mg tablet 80 mg PO HS 07/16/25 07/16/25 History bisacodyl 5 mg tablet 5 mg PO DAILY PRN constipation 07/16/25 07/16/25 History cholecalciferol (vitamin D3) 50 4,000 unit PO DAILY 07/16/25 07/16/25 History mcg (2,000 unit) capsule (Vitamin D3) empagliflozin 10 mg tablet 10 mg PO QID 07/16/25 07/16/25 History (Jardiance) fluticasone propionate 50 1 spray intranasal BID PRN allergy 07/16/25 07/16/25 History mcg/actuation nasal symptoms spray,suspension folic acid 400 mcg tablet 400 mcg PO HS 07/16/25 07/16/25 History furosemide 40 mg tablet 40 mg PO TID 07/16/25 07/16/25 History hydrocodone 5 mg-acetaminophen 325 1 tablet PO Q4-6H PRN pain (scale 07/16/25 07/16/25 History mg tablet score 4-6) hydroxychloroquine 200 mg tablet 200 mg PO QID 07/16/25 07/16/25 History (Plaquenil) isosorbide mononitrate 60 mg 60 mg PO BID 07/16/25 07/16/25 History tablet,extended release 24 hr losartan 25 mg tablet 25 mg PO QID 07/16/25 07/16/25 History metoprolol tartrate 25 mg tablet 25 mg PO BID 07/16/25 07/16/25 History mupirocin 2 % topical ointment 1 applic topical DAILY 07/16/25 07/16/25 History omeprazole 40 mg capsule,delayed 40 mg PO QID 07/16/25 07/16/25 History release polyethylene glycol 3350 17 17 g PO DAILY PRN constipation 07/16/25 07/16/25 History gram/dose oral powder ranolazine 500 mg tablet,extended 500 mg PO QID 07/16/25 07/16/25 History release,12 hr Allergies Allergy/AdvReac Type Severity Reaction Status Date / Time Aminoglycosides Allergy Severe SEVERE Verified 07/16/25 20:14 PAIN & NO HELP TO SITE bacitracin Allergy Severe SEVERE Verified 07/16/25 20:14 PAIN & NO HELP TO SITE neomycin Allergy Severe SEVERE Verified 07/16/25 20:14 PAIN & NO HELP TO SITE polymyxin B Allergy Severe PAIN AND Verified 07/16/25 20:14 NO HELP TO SITE Sulfa (Sulfonamide Allergy Severe THROAT Verified 07/16/25 20:14 Antibiotics) CLOSES adhesive Allergy Intermediate SKIN RASH, Verified 07/16/25 20:14 REACTION Vital Signs Vital Signs - 24 hr 07/16/25 16:21 07/16/25 17:43 07/16/25 20:00 Temperature 36.9 C 36.2 C L Pulse Rate 73 62 77 Respiratory Rate 20 18 20 Blood Pressure 158/68 H 129/81 136/86 Pulse Oximetry 94 96 98 Oxygen Delivery Room Air 07/16/25 21:00 07/17/25 06:00 Temperature 36.6 C Pulse Rate 65 Respiratory Rate 20 Blood Pressure 121/54 L Pulse Oximetry 96 Oxygen Delivery Room Air Exam Narrative: Examination of the patient shows that she has a right bqyju-pnb-qhcn amputation. She has a left leg that his bandage which it with a very large nonhealing ulcer. She has a moderate swelling at the knee with tenderness over the medial joint line. She has ecchymoses over the left ankle and also some tenderness medially and laterally of the left ankle. Her left 5th digit appears to be bruised and with decreased range of motion secondary to the splint that has been there for about 2 weeks now. Const: General: cooperative, comfortable, no acute distress, well developed, alert and awake Nutritional Appearance: thin Orientation/consciousness: oriented to person, oriented to place, oriented to time and patient oriented x3 Results Labs 07/16/25 16:32 07/16/25 16:32 Labs: Abnormal lab results 07/16/25 07/16/25 Range/Units 16:32 16:36 RBC 3.55 L (4.2-5.4) M/mm3 Hgb 11.5 L (12.0-15.0) g/dL Hct 35.0 L (37.0-47.0) % RDW 16.2 H (11.5-14.5) % Lymph % (Auto) 14.4 L (18.3-44.2) % Eos % (Auto) 4.6 H (0-4.4) % Lymph # (Auto) 0.85 L (0.9-3.2) K/mm3 PT 15.3 H (11.1-14.7) Seconds BUN 19 H (7-17) mg/dL Urine Protein 1+ H (Negative) mg/dL Urine Glucose (UA) 3+ H (Negative) mg/dL H & H 07/16/25 Range/Units 16:32 Hgb 11.5 L (12.0-15.0) g/dL Hct 35.0 L (37.0-47.0) % Coagulation 07/16/25 Range/Units 16:32 INR 1.2 All other labs normal.
[2025-07-17] MEDS: CHOLECALCIFEROL (VITAMIN D3) 25 MCG (1,000 UNITS) TABLET 100 MCG PO (08:12)
[2025-07-17 09:29] VITALS: O2SAT 94
[2025-07-17] MEDS: ONDANSETRON INJ 4 MG/2 ML VIAL IV PUSH (10:13)
--- NOTE | 2025-07-17 14:08 | P.PNIM_ITS ---
Progress Note: A&P Assessment and Plan (1) Closed sacral fracture: Code(s): S32.10XA - Unspecified fracture of sacrum, initial encounter for closed fracture Status: Acute Assessment and Plan: orthopedic surgery following WBAT PT/OT pain control patient will need admission to Rehab on discharge care coordination following (2) Left ankle pain: Qualifiers: Chronicity: acute Qualified Code(s): M25.572 - Pain in left ankle and joints of left foot Code(s): M25.572 - Pain in left ankle and joints of left foot Status: Acute Assessment and Plan: orthopedic surgery following x-rays ordered per ortho pain control PT/OT (3) Left knee pain: Qualifiers: Chronicity: acute Qualified Code(s): M25.562 - Pain in left knee Code(s): M25.562 - Pain in left knee Status: Acute Assessment and Plan: orthopedic surgery following x-rays ordered per ortho pain control PT/OT (4) Fracture of phalanx of digit of hand: Qualifiers: Encounter type: initial encounter Fracture type: closed Qualified Code(s): S62.609A - Fracture of unspecified phalanx of unspecified finger, initial encounter for closed fracture Code(s): S62.609A - Fracture of unspecified phalanx of unspecified finger, initial encounter for closed fracture Status: Acute Assessment and Plan: orthopedic surgery following x-rays ordered per ortho ortho removed the splint the patient has had in place for the last 2 weeks after being seen in the ER at [facility] pain control PT/OT (5) Hypertension: Code(s): I10 - Essential (primary) hypertension Status: Acute Assessment and Plan: restart home medications amlodipine 5 mg PO daily Furosemide 40 mg PO daily losartan 25 mg PO daily metoprolol 25 mg PO BID monitor blood pressures and adjust as indicated (6) HLD (hyperlipidemia): Code(s): E78.5 - Hyperlipidemia, unspecified Status: Acute Assessment and Plan: continue home atorvastatin 80 mg PO daily (7) CAD (coronary artery disease): Code(s): I25.10 - Atherosclerotic heart disease of [place] coronary artery without angina pectoris Status: Acute Assessment and Plan: patient denies chest pain continue home medications isosorbide 60 mg PO BID ASA 81 mg PO daily atorvastatin 80 mg PO daily Subjective Date/time seen: 07/17/25 14:08 Review of Systems Review of Systems: All systems reviewed & are unremarkable except as noted in HPI and below (Subjective) Exam Const: General: comfortable and no acute distress HENMT: Mouth: Yes moist mucous membranes Eyes: Pupils: Equal, round and reactive pupils present Neck: Neck: supple Resp: Effort & Inspection: normal respiratory effort Auscultation: clear to auscultation bilaterally Cardio: Rate: regular rate Rhythm: regular rhythm GI: Inspection: non-distended GI Palp: Yes Soft to palpation Auscultation: normal bowel sounds Neuro: Cranial nerves: Yes Equal, round and reactive pupils present Extrem: Other: left lower extremity chronic wound, no purulent drainage. right BKA Psych: Mental Status: mental status grossly normal Affect: normal affect Objective Data Vital Signs Vital Signs: Vital Signs - 24 hr 07/16/25 16:21 07/16/25 17:43 07/16/25 20:00 Temperature 98.5 F 97.1 F L Pulse Rate 73 62 77 Respiratory Rate 20 18 20 Blood Pressure 158/68 H 129/81 136/86 Pulse Oximetry 94 96 98 Oxygen Delivery Room Air 07/16/25 21:00 07/17/25 06:00 07/17/25 08:00 Temperature 98 F Pulse Rate 65 Respiratory Rate 20 Blood Pressure 121/54 L Pulse Oximetry 96 Oxygen Delivery Room Air Room Air 07/17/25 08:10 07/17/25 09:29 Temperature Pulse Rate 65 Respiratory Rate Blood Pressure Pulse Oximetry 94 Oxygen Delivery Room Air Intake/Output Intake/Output: Intake & Output 07/14/25 07/15/25 07/16/25 07/17/25 23:59 22:59 23:59 23:59 Intake Total 90 Output Total 210 Balance -210 90 Meds/Results Medications: Active Medications Generic Name Dose Route Start Last Admin Trade Name Freq PRN Reason Stop Dose Admin Hydrocodone Bitart/Acetaminophen 1 tab 07/16/25 21:36 07/17/25 08:11 Hydrocodone/Acetaminophen (*Crx) 5-325 Mg Tablet PO 1 tab Q4-6H PRN Administration pain (scale score 4-6) Atorvastatin Calcium 80 mg 07/16/25 21:40 07/16/25 22:43 Atorvastatin 40 Mg Tablet PO 80 mg HS ESTIVEN Administration Bisacodyl 5 mg 07/16/25 21:36 Bisacodyl 5 Mg Tablet Ec PO DAILY PRN Constipation Dextrose 12.5 gm 07/16/25 21:38 Dextrose 50% 25 Gm/50 Ml Syringe IV PUSH PRN PRN Hypoglycemia Protocol Fluticasone Propionate 1 spray 07/16/25 21:36 Fluticasone Propionate 0.05% Na Spr 16 Gm Btl (*Bkc) NASAL Q12H PRN allergy symptoms Folic Acid 0.4 mg 07/16/25 21:45 07/16/25 22:43 Folic Acid 0.4 Mg Tablet PO 0.4 mg HS ESTIVEN Administration Glucose 15 gm 07/16/25 21:38 Glucose Oral Gel 15 Gm Of Glucse In 37.5 Gm Tube PO PRN PRN Hypoglycemia Protocol Dextrose 1,000 mls @ 100 mls/hr 07/16/25 21:38 Dextrose 5% 1,000 Ml IVPB PRN PRN Hypoglycemia Protocol Metoprolol Tartrate 25 mg 07/17/25 09:00 07/17/25 08:10 Metoprolol Tartrate 25 Mg Tablet PO 25 mg Q12HR ESTIVEN Administration Ondansetron HCl 4 mg 07/17/25 09:50 07/17/25 10:13 Ondansetron Inj 4 Mg/2 Ml Vial IV PUSH 4 mg Q6H PRN Administration Nausea And Vomiting Pantoprazole Sodium 40 mg 07/17/25 09:00 07/17/25 08:11 Pantoprazole 40 Mg Tablet PO 40 mg Q12HR ESTIVEN Administration Polyethylene Glycol 17 gm 07/16/25 21:36 Polyethylene Glycol 3350 17 Gm Powd.Pack PO DAILY PRN Constipation Vitamin D 100 mcg 07/17/25 09:00 07/17/25 08:12 Cholecalciferol (Vitamin D3) 25 Mcg (1,000 Units) Tablet PO 100 mcg DAILY ESTIVEN Administration Radiology Results: ITS Impressions Pelvis CT 07/16/25 17:43 IMPRESSION: Acute displaced vertical left sacral fracture.i All CT scans at this facility are performed using low dose modulation techniques as appropriate to perform exam including the following: automated exposure control; use of iterative reconstruction technique; adjustment of the mA and/or kV according to patient size (this includes techniques or standardized protocols for targeted exams where dose is matched to indication/reason for exam). Ankle X-Ray 07/17/25 09:05 Impression: Fractures detailed above Hand X-Ray 07/17/25 09:05 IMPRESSION: Findings consistent with an evulsion fracture at the proximal and dorsal aspect of the middle phalanx of the fifth digit. There may be an additional fracture with tiny fragment at the palmar aspect. Knee X-Ray 07/17/25 09:05 IMPRESSION: No acute abnormalities are seen. Labs Labs: Laboratory Results - last 24 hr 07/16/25 07/16/25 07/17/25 16:32 16:36 07:43 WBC 5.9 RBC 3.55 L Hgb 11.5 L Hct 35.0 L MCV 98.6 MCH 32.4 MCHC 32.9 RDW 16.2 H Plt Count 260 MPV 8.5 Immature Gran % (Auto) 0.3 Neut % (Auto) 71.8 Lymph % (Auto) 14.4 L [place] % (Auto) 8.1 Eos % (Auto) 4.6 H Baso % (Auto) 0.8 Lymph # (Auto) 0.85 L [place] # (Auto) 0.5 Eos # (Auto) 0.3 Baso # (Auto) 0.1 Abs Immat Gran (auto) 0.02 Absolute Neuts (auto) 4.3 Absolute Nucleated RBC 0.000 Nucleated RBC % 0.0 PT 15.3 H INR 1.2 Sodium 139 Potassium 3.6 Chloride 107 Carbon Dioxide 22 Anion Gap 10 BUN 19 H Creatinine 0.82 Estim Creat Clear Calc 49 Estimated GFR > 60 Glucose 96 POC Capillary Glucose 88 Calcium 8.8 Urine Color Yellow Urine Appearance Clear Urine pH 5.0 Ur Specific [place] 1.018 Urine Protein 1+ H Urine Glucose (UA) 3+ H Urine Ketones Negative Ur Blood (Man) Negative Urine Nitrate Negative Urine Bilirubin Negative Urine Urobilinogen 0.2 Leukocyte Esterase Rfl Negative Urine RBC 0-2 Urine WBC 0-5 Ur Squamous Epith Cells None seen Urine Bacteria None seen Urine Casts 0-2 Quality VTE Prophylaxis VTE prophylaxis: mechanical ordered
--- NOTE | 2025-07-17 15:47 | PCPTNOTE ---
Pt has an ortho consult pending and active bedrest orders. Will follow as pt is able to participate with skilled therapy.
[2025-07-17] MEDS: ASPIRIN 81 MG CHEWABLE TABLET PO (16:20)
[2025-07-17] MEDS: HYDROXYCHLOROQUINE SULFATE 200 MG TABLET PO ×2 (16:20→20:22)
[2025-07-17] MEDS: ATORVASTATIN 40 MG TABLET 80 MG PO (20:21)
[2025-07-17] MEDS: FOLIC ACID 0.4 MG TABLET PO (20:21)
[2025-07-17 20:22] VITALS: PULSE 71
[2025-07-17] MEDS: ISOSORBIDE MONONITRATE 60 MG TAB.ER.24H PO (20:28)
[2025-07-17 21:41] VITALS: BP 153/59; PULSE 73; RESP 16; TEMP 36.5; O2SAT 93
[2025-07-18 05:57] VITALS: BP 128/54; PULSE 116; RESP 16; TEMP 36.8; O2SAT 93
[2025-07-18] MEDS: HYDROcodone/acetaminophen (*CRX) 5-325 MG TABLET 1 TAB PO ×3 (08:21→21:49)
[2025-07-18] MEDS: FUROSEMIDE 40 MG TABLET PO (08:27)
[2025-07-18] MEDS: EMPAGLIFLOZIN 10 MG TABLET PO (08:27)
[2025-07-18] MEDS: ASPIRIN 81 MG CHEWABLE TABLET PO ×2 (08:29→16:06)
[2025-07-18] MEDS: HYDROXYCHLOROQUINE SULFATE 200 MG TABLET PO ×4 (08:29→21:27)
[2025-07-18] MEDS: PANTOPRAZOLE 40 MG TABLET PO ×2 (08:29→21:27)
[2025-07-18 08:30] VITALS: PULSE 71
[2025-07-18] MEDS: METOPROLOL TARTRATE 25 MG TABLET PO ×2 (08:30→21:31)
[2025-07-18] MEDS: CHOLECALCIFEROL (VITAMIN D3) 25 MCG (1,000 UNITS) TABLET 100 MCG PO (08:32)
[2025-07-18] MEDS: LOSARTAN POTASSIUM 25 MG TABLET PO ×2 (09:11→21:27)
[2025-07-18] MEDS: RANOLAZINE 500 MG TAB.ER.12H PO ×2 (09:11→21:27)
[2025-07-18 14:00] VITALS: BP 129/51; PULSE 66; RESP 18; TEMP 36.8; O2SAT 98
--- NOTE | 2025-07-18 16:11 | PM.IMPN ---
Progress Note: A&P Assessment and Plan (1) Closed sacral fracture: Code(s): S32.10XA - Unspecified fracture of sacrum, initial encounter for closed fracture Status: Acute Assessment and Plan: orthopedic surgery following WBAT PT/OT pain control patient will need admission to Rehab on discharge care coordination following (2) Left ankle pain: Qualifiers: Chronicity: acute Qualified Code(s): M25.572 - Pain in left ankle and joints of left foot Code(s): M25.572 - Pain in left ankle and joints of left foot Status: Acute Assessment and Plan: orthopedic surgery following x-rays ordered per ortho pain control PT/OT (3) Left knee pain: Qualifiers: Chronicity: acute Qualified Code(s): M25.562 - Pain in left knee Code(s): M25.562 - Pain in left knee Status: Acute Assessment and Plan: orthopedic surgery following x-rays ordered per ortho pain control PT/OT (4) Fracture of phalanx of digit of hand: Qualifiers: Encounter type: initial encounter Fracture type: closed Qualified Code(s): S62.609A - Fracture of unspecified phalanx of unspecified finger, initial encounter for closed fracture Code(s): S62.609A - Fracture of unspecified phalanx of unspecified finger, initial encounter for closed fracture Status: Acute Assessment and Plan: orthopedic surgery following x-rays ordered per ortho ortho removed the splint the patient has had in place for the last 2 weeks after being seen in the ER at [facility]-currently stef-taped fingers pain control PT/OT (5) Hypertension: Code(s): I10 - Essential (primary) hypertension Status: Acute Assessment and Plan: restart home medications amlodipine 5 mg PO daily Furosemide 40 mg PO daily losartan 25 mg PO daily metoprolol 25 mg PO BID monitor blood pressures and adjust as indicated (6) HLD (hyperlipidemia): Code(s): E78.5 - Hyperlipidemia, unspecified Status: Acute Assessment and Plan: continue home atorvastatin 80 mg PO daily (7) CAD (coronary artery disease): Code(s): I25.10 - Atherosclerotic heart disease of [place] coronary artery without angina pectoris Status: Acute Assessment and Plan: patient denies chest pain continue home medications isosorbide 60 mg PO BID ASA 81 mg PO daily atorvastatin 80 mg PO daily (8) Squamous cell carcinoma of lower leg: Code(s): C44.721 - Squamous cell carcinoma of skin of unspecified lower limb, including hip Status: Acute Assessment and Plan: Patient has 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 She was getting a transfusion with [facility] and she fell. She was transferred to [facility], x-rays did not reveal any fracture. She was sent home. PCP sent the patient back to [facility] which revealed a sacral fracture. The patient was sent home, she has been getting progressively weak. She has a lot of pain. No decreased sensation or focal weakness. No urinary incontinence, no fecal incontinence. Pelvis CT without contrast demonstrates acute displaced vertical left sacral fracture, orthopedic surgery consulted. Refer to ER physician's note, patient's demanded transfer, they contacted Mahad Bello and the hospitalist refuse transfer due to it being a lateral transfer. The was verbally cantankerous but ultimately agreed for admission, orthopedic surgery consultation and placement. Review of Systems Review of Systems: All systems reviewed & are unremarkable except as noted in HPI and below (Subjective) Exam Const: General: comfortable and no acute distress HENMT: Mouth: Yes moist mucous membranes Eyes: Pupils: Equal, round and reactive pupils present Neck: Neck: supple Resp: Effort & Inspection: normal respiratory effort Auscultation: clear to auscultation bilaterally Cardio: Rate: regular rate Rhythm: regular rhythm GI: Inspection: non-distended GI Palp: Yes Soft to palpation Auscultation: normal bowel sounds Neuro: Cranial nerves: Yes Equal, round and reactive pupils present Extrem: Other: left lower extremity chronic wound, no purulent drainage. right BKA Psych: Mental Status: mental status grossly normal Affect: normal affect Objective Data Vital Signs Vital Signs: Vital Signs - 24 hr 07/17/25 20:22 07/17/25 20:22 07/17/25 21:41 Temperature 97.7 F Pulse Rate 71 73 Respiratory Rate 16 Blood Pressure 153/59 H Pulse Oximetry 93 Oxygen Delivery Room Air 07/18/25 05:57 07/18/25 08:30 07/18/25 09:17 Temperature 98.2 F Pulse Rate 116 H 71 Respiratory Rate 16 Blood Pressure 128/54 L Pulse Oximetry 93 Oxygen Delivery Room Air 07/18/25 09:38 07/18/25 14:00 Temperature 98.3 F Pulse Rate 66 Respiratory Rate 18 Blood Pressure 129/51 L Pulse Oximetry 98 Oxygen Delivery Room Air Intake/Output Intake/Output: Intake & Output 07/15/25 07/16/25 07/17/25 07/18/25 22:59 23:59 23:59 23:59 Intake Total 90 400 Output Total 210 350 Balance -210 90 50 Meds/Results Medications: Active Medications Generic Name Dose Route Start Last Admin Trade Name Freq PRN Reason Stop Dose Admin Hydrocodone Bitart/Acetaminophen 1 tab 07/16/25 21:36 07/18/25 13:08 Hydrocodone/Acetaminophen (*Crx) 5-325 Mg Tablet PO 1 tab Q4-6H PRN Administration pain (scale score 4-6) Amlodipine Besylate 5 mg 07/17/25 21:00 07/17/25 20:21 Amlodipine Besylate 5 Mg Tablet PO 5 mg HS ESTIVEN Administration Aspirin 81 mg 07/17/25 17:00 07/18/25 16:06 Aspirin 81 Mg Chewable Tablet PO 81 mg BID ESTIVEN Administration Atorvastatin Calcium 80 mg 07/16/25 21:40 07/17/25 20:21 Atorvastatin 40 Mg Tablet PO 80 mg HS ESTIVEN Administration Bisacodyl 5 mg 07/16/25 21:36 Bisacodyl 5 Mg Tablet Ec PO DAILY PRN Constipation Dextrose 12.5 gm 07/16/25 21:38 Dextrose 50% 25 Gm/50 Ml Syringe IV PUSH PRN PRN Hypoglycemia Protocol Empagliflozin 10 mg 07/18/25 09:00 07/18/25 08:27 Empagliflozin 10 Mg Tablet PO 10 mg DAILY ESTIVEN Administration Fluticasone Propionate 1 spray 07/16/25 21:36 Fluticasone Propionate 0.05% Na Spr 16 Gm Btl (*Bkc) NASAL Q12H PRN allergy symptoms Folic Acid 0.4 mg 07/16/25 21:45 07/17/25 20:21 Folic Acid 0.4 Mg Tablet PO 0.4 mg HS ESTIVEN Administration Furosemide 40 mg 07/18/25 09:00 07/18/25 08:27 Furosemide 40 Mg Tablet PO 40 mg DAILY ESTIVEN Administration Glucose 15 gm 07/16/25 21:38 Glucose Oral Gel 15 Gm Of Glucse In 37.5 Gm Tube PO PRN PRN Hypoglycemia Protocol Hydroxychloroquine Sulfate 200 mg 07/17/25 17:00 07/18/25 16:06 Hydroxychloroquine Sulfate 200 Mg Tablet PO 200 mg QID ESTIVEN Administration Dextrose 1,000 mls @ 100 mls/hr 07/16/25 21:38 Dextrose 5% 1,000 Ml IVPB PRN PRN Hypoglycemia Protocol Isosorbide Mononitrate 60 mg 07/17/25 21:00 07/17/25 20:28 Isosorbide Mononitrate 60 Mg Tab.Er.24h PO 60 mg 2100 ESTIVEN Administration Losartan Potassium 25 mg 07/18/25 09:00 07/18/25 09:11 Losartan Potassium 25 Mg Tablet PO 25 mg Q12HR ESTIVEN Administration Metoprolol Tartrate 25 mg 07/17/25 09:00 07/18/25 08:30 Metoprolol Tartrate 25 Mg Tablet PO 25 mg Q12HR ESTIVEN Administration Ondansetron HCl 4 mg 07/17/25 09:50 07/17/25 10:13 Ondansetron Inj 4 Mg/2 Ml Vial IV PUSH 4 mg Q6H PRN Administration Nausea And Vomiting Pantoprazole Sodium 40 mg 07/17/25 09:00 07/18/25 08:29 Pantoprazole 40 Mg Tablet PO 40 mg Q12HR ESTIVEN Administration Polyethylene Glycol 17 gm 07/16/25 21:36 Polyethylene Glycol 3350 17 Gm Powd.Pack PO DAILY PRN Constipation Ranolazine 500 mg 07/18/25 09:00 07/18/25 09:11 Ranolazine 500 Mg Tab.Er.12h PO 500 mg Q12HR ESTIVEN Administration Vitamin D 100 mcg 07/17/25 09:00 07/18/25 08:32 Cholecalciferol (Vitamin D3) 25 Mcg (1,000 Units) Tablet PO 100 mcg DAILY ESTIVEN Administration Radiology Results: ITS Impressions Pelvis CT 07/16/25 17:43 IMPRESSION: Acute displaced vertical left sacral fracture.i All CT scans at this facility are performed using low dose modulation techniques as appropriate to perform exam including the following: automated exposure control; use of iterative reconstruction technique; adjustment of the mA and/or kV according to patient size (this includes techniques or standardized protocols for targeted exams where dose is matched to indication/reason for exam). Ankle X-Ray 07/17/25 09:05 Impression: Fractures detailed above Hand X-Ray 07/17/25 09:05 IMPRESSION: Findings consistent with an evulsion fracture at the proximal and dorsal aspect of the middle phalanx of the fifth digit. There may be an additional fracture with tiny fragment at the palmar aspect. Knee X-Ray 07/17/25 09:05 IMPRESSION: No acute abnormalities are seen. Labs Labs: Laboratory Results - last 24 hr 07/17/25 07/18/25 21:51 07:48 POC Capillary Glucose 206 H 102 Hospitalist [facility] Advance Care Plan I have confirmed that the patient's Advanced Care Plan is present, code status is documented, or surrogate decision maker is listed in patient medical record.: Yes Medication Reconciliation I have utilized all available resources to obtain, update and review the patients current medications (includes all prescriptions, OTC, herbals, cannabis, and nutritional supplements).: Yes
[2025-07-18] MEDS: ATORVASTATIN 40 MG TABLET 80 MG PO (21:27)
[2025-07-18] MEDS: FOLIC ACID 0.4 MG TABLET PO (21:27)
[2025-07-18] MEDS: ISOSORBIDE MONONITRATE 60 MG TAB.ER.24H PO (21:30)
[2025-07-18 21:31] VITALS: PULSE 71
[2025-07-18 22:00] VITALS: BP 118/45; PULSE 63; RESP 16; TEMP 36.5; O2SAT 93
[2025-07-18 23:03] VITALS: O2SAT 93
[2025-07-19 05:55] VITALS: BP 133/55; PULSE 55; RESP 16; TEMP 36.4; O2SAT 95
[2025-07-19 06:01] LABS: Hematocrit 34.1 % (37.0-47.0); Hemoglobin 10.8 g/dL (12.0-15.0); Immature Granulocyte Percent A 0.5 % (0-0.5); Lymphocytes Absolute Auto 0.81 K/mm3 (0.9-3.2); Mean Corpuscular HGB Conc 31.7 g/dl (32-36); Mean Corpuscular Hemoglobin 32.0 pg (26-34); Mean Corpuscular Volume 100.9 fl (80-100); Nucleated Red Blood Cells Absolute Auto 0.000 K/mm3 (0.0-0.012); Nucleated Red Blood Cells Perc 0.0 % (0.0-0.2); Platelet Count Result 231 k/mm3 (150-375); Red Blood Count 3.38 M/mm3 (4.2-5.4); White Blood Count 6.6 K/mm3 (4.5-10.0)
[2025-07-19 06:26] LABS: Alanine Aminotransferase 18 U/L (6-35); Albumin Level 3.0 g/dL (3.5-5.1); Alkaline Phosphatase 127 U/L (38-126); Anion Gap 5 mmol/L (4-12); Aspartate Amino Transferase 31 U/L (14-36); Bilirubin,Total 1.0 mg/dL (0.2-1.3); Blood Urea Nitrogen 16 mg/dL (7-17); Calcium 8.2 mg/dL (8.4-10.2); Carbon Dioxide 28 mmol/L (22-30); Chloride 104 mmol/L (98-107); Estimated CRCL calculation 42 ml/min; Estimated Glomerular Filt Rate 57; Glucose 101 mg/dL (65-110); Potassium 3.7 mmol/L (3.4-5.0); Sodium 137 mmol/L (137-145); Total Protein 6.1 g/dL (6.3-8.2)
--- NOTE | 2025-07-19 09:25 | ECG_ITS ---
Test Date: 2025-07-19 09:38:30 Measurements Intervals Violet Rate: 67 P: 43 UT: 150 QRS: -8 QRSD: 98 T: 54 QT: 425 QTc: 451 Interpretive Statements SINUS RHYTHM WITH OCCASIONAL SUPRAVENTRICULAR PREMATURE COMPLEXES POSSIBLE RIGHT VENTRICULAR CONDUCTION DELAY [RSR (QR) IN V1/V2] NONSPECIFIC T-WAVE ABNORMALITIES No previous ECG available for comparison Electronically Signed On 07-19-2025 11:29:41 COMPUTER VIDEO GAME DESIGNER by Armand Keating M.D.
[2025-07-19] MEDS: CHOLECALCIFEROL (VITAMIN D3) 25 MCG (1,000 UNITS) TABLET 100 MCG PO (09:26)
[2025-07-19] MEDS: EMPAGLIFLOZIN 10 MG TABLET PO (09:26)
[2025-07-19] MEDS: ASPIRIN 81 MG CHEWABLE TABLET PO ×2 (09:26→17:02)
[2025-07-19 09:27] VITALS: PULSE 60
[2025-07-19] MEDS: HYDROXYCHLOROQUINE SULFATE 200 MG TABLET PO ×4 (09:27→20:48)
[2025-07-19] MEDS: METOPROLOL TARTRATE 25 MG TABLET PO ×2 (09:27→20:48)
[2025-07-19] MEDS: FUROSEMIDE 40 MG TABLET PO (09:27)
[2025-07-19] MEDS: LOSARTAN POTASSIUM 25 MG TABLET PO ×2 (09:28→20:47)
[2025-07-19] MEDS: RANOLAZINE 500 MG TAB.ER.12H PO ×2 (09:28→20:48)
[2025-07-19] MEDS: PANTOPRAZOLE 40 MG TABLET PO ×2 (09:29→20:48)
--- NOTE | 2025-07-19 09:36 | PCOTNOTE ---
Per RN, do not see at this time, Patient c/o chest pain, has been addressed. RN requested to come back at a later time after some testing. Will check back this P.M.
[2025-07-19 11:30] LABS: Creatine Kinase 122 U/L (30-135)
[2025-07-19] MEDS: HYDROcodone/acetaminophen (*CRX) 5-325 MG TABLET 1 TAB PO ×2 (12:32→19:39)
[2025-07-19] MEDS: FUROSEMIDE INJ 40 MG/4 ML VIAL (12:45)
[2025-07-19 13:16] LABS: Add Urine Microscopic? YES; Appearance Urine Clear (Clear); Glucose Urine UA 1+ mg/dL (Negative); Leukocyte Esterase Ur 3+ LEU/UL (Negative); Nitrate Urine Negative (Negative); Non Pathogenic Casts 0-2; Specific Grav Ur 1.018 (1.001-1.035)
[2025-07-19 14:00] VITALS: BP 157/72; PULSE 70; RESP 18; TEMP 37.3; O2SAT 97
--- NOTE | 2025-07-19 14:12 | PCOTNOTE ---
Attempted again to see Patient at this time. Patient is in bed, family present. Patient refused to particpate in OT treatment session. Patient states she has had several tests today and just finished PT session. I'm to tired, weak, and need to sleep. No more today, try tomorrow.
--- NOTE | 2025-07-19 15:46 | P.PNIM_ITS ---
Progress Note: A&P Assessment and Plan (1) Closed sacral fracture: Code(s): S32.10XA - Unspecified fracture of sacrum, initial encounter for closed fracture Status: Acute Assessment and Plan: orthopedic surgery following WBAT PT/OT pain control patient will need admission to Rehab on discharge care coordination following (2) Chest pain: Code(s): R07.9 - Chest pain, unspecified Status: Acute Assessment and Plan: Patient reported chest pressure this morning located bilaterally the inferior aspect of the ribcage. EKG nonischemic. D-dimer was conducted to rule out PE, came back elevated at 5.62, prompting CT chest PE protocol which was negative for PE but did show bilateral pleural effusions. My visualization of CT of the chest shows minimal pleural effusions more on the right than the left. Patient does have known history of congestive heart failure but has not been in exacerbation during hospitalization. Gave IV Lasix dose today Monitor for improvement of chest pain Consider repeat x-ray in the morning (3) UTI (urinary tract infection): Code(s): N39.0 - Urinary tract infection, site not specified Status: Acute Assessment and Plan: Patient then had onset of brown urine today. No complaint of urinary symptoms. Initial UA on admission showed 1+ protein however repeat shows no protein, trace blood, 0-2 rbc's, 3+ leukocyte esterase, no squamous epithelial cells and 4+ bacteria. As such culture will be sent out. Initial concern for glomerulonephritis however no protein and minimal to no blood on urine. Follow urine culture Ceftriaxone has been started (4) Left ankle pain: Qualifiers: Chronicity: acute Qualified Code(s): M25.572 - Pain in left ankle and joints of left foot Code(s): M25.572 - Pain in left ankle and joints of left foot Status: Acute Assessment and Plan: orthopedic surgery following x-rays ordered per ortho pain control PT/OT (5) Left knee pain: Qualifiers: Chronicity: acute Qualified Code(s): M25.562 - Pain in left knee Code(s): M25.562 - Pain in left knee Status: Acute Assessment and Plan: orthopedic surgery following x-rays ordered per ortho pain control PT/OT (6) Fracture of phalanx of digit of hand: Qualifiers: Encounter type: initial encounter Fracture type: closed Qualified Code(s): S62.609A - Fracture of unspecified phalanx of unspecified finger, initial encounter for closed fracture Code(s): S62.609A - Fracture of unspecified phalanx of unspecified finger, initial encounter for closed fracture Status: Acute Assessment and Plan: orthopedic surgery following x-rays ordered per ortho ortho removed the splint the patient has had in place for the last 2 weeks after being seen in the ER at [facility]-currently stef-taped fingers pain control PT/OT (7) Hypertension: Code(s): I10 - Essential (primary) hypertension Status: Acute Assessment and Plan: restart home medications amlodipine 5 mg PO daily Furosemide 40 mg PO daily losartan 25 mg PO daily metoprolol 25 mg PO BID monitor blood pressures and adjust as indicated (8) HLD (hyperlipidemia): Code(s): E78.5 - Hyperlipidemia, unspecified Status: Acute Assessment and Plan: continue home atorvastatin 80 mg PO daily (9) CAD (coronary artery disease): Code(s): I25.10 - Atherosclerotic heart disease of [place] coronary artery without angina pectoris Status: Acute Assessment and Plan: patient denies chest pain continue home medications isosorbide 60 mg PO BID ASA 81 mg PO daily atorvastatin 80 mg PO daily (10) Squamous cell carcinoma of lower leg: Code(s): C44.721 - Squamous cell carcinoma of skin of unspecified lower limb, including hip Status: Acute Assessment and Plan: Patient has 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 She was getting a transfusion with [facility] and she fell. She was transferred to [facility], x-rays did not reveal any fracture. She was sent home. PCP sent the patient back to [facility] which revealed a sacral fracture. The patient was sent home, she has been getting progressively weak. She has a lot of pain. No decreased sensation or focal weakness. No urinary incontinence, no fecal incontinence. Pelvis CT without contrast demonstrates acute displaced vertical left sacral fracture, orthopedic surgery consulted. Refer to ER physician's note, patient's demanded transfer, they contacted Mahad Bello and the hospitalist refuse transfer due to it being a lateral transfer. The was verbally cantankerous but ultimately agreed for admission, orthopedic surgery consultation and placement. Review of Systems Review of Systems: All systems reviewed & are unremarkable except as noted in HPI and below (Subjective) Objective Data Vital Signs Vital Signs: Vital Signs - 24 hr 07/18/25 21:27 07/18/25 21:31 07/18/25 22:00 Temperature 97.7 F Pulse Rate 71 63 Respiratory Rate 16 Blood Pressure 118/45 L Pulse Oximetry 93 Oxygen Delivery Room Air 07/18/25 23:03 07/19/25 05:55 07/19/25 09:27 Temperature 97.5 F L Pulse Rate 55 L 60 Respiratory Rate 16 Blood Pressure 133/55 L Pulse Oximetry 93 95 Oxygen Delivery Room Air 07/19/25 14:00 Temperature 99.1 F Pulse Rate 70 Respiratory Rate 18 Blood Pressure 157/72 H Pulse Oximetry 97 Oxygen Delivery Intake/Output Intake/Output: Intake & Output 07/16/25 07/17/25 07/18/25 07/19/25 23:59 23:59 23:59 23:59 Intake Total 90 1822 240 Output Total 382 026 0685 Balance -223 63 6482 -1010 Meds/Results Medications: Active Medications Generic Name Dose Route Start Last Admin Trade Name Freq PRN Reason Stop Dose Admin Hydrocodone Bitart/Acetaminophen 1 tab 07/16/25 21:36 07/19/25 12:32 Hydrocodone/Acetaminophen (*Crx) 5-325 Mg Tablet PO 1 tab Q4-6H PRN Administration pain (scale score 4-6) Amlodipine Besylate 5 mg 07/17/25 21:00 07/18/25 21:27 Amlodipine Besylate 5 Mg Tablet PO 5 mg HS ESTIVEN Administration Aspirin 81 mg 07/17/25 17:00 07/19/25 09:26 Aspirin 81 Mg Chewable Tablet PO 81 mg BID ESTIVEN Administration Atorvastatin Calcium 80 mg 07/16/25 21:40 07/18/25 21:27 Atorvastatin 40 Mg Tablet PO 80 mg HS ESTIVEN Administration Bisacodyl 5 mg 07/16/25 21:36 Bisacodyl 5 Mg Tablet Ec PO DAILY PRN Constipation Dextrose 12.5 gm 07/16/25 21:38 Dextrose 50% 25 Gm/50 Ml Syringe IV PUSH PRN PRN Hypoglycemia Protocol Empagliflozin 10 mg 07/18/25 09:00 07/19/25 09:26 Empagliflozin 10 Mg Tablet PO 10 mg DAILY ESTIVEN Administration Fluticasone Propionate 1 spray 07/16/25 21:36 Fluticasone Propionate 0.05% Na Spr 16 Gm Btl (*Bkc) NASAL Q12H PRN allergy symptoms Folic Acid 0.4 mg 07/16/25 21:45 07/18/25 21:27 Folic Acid 0.4 Mg Tablet PO 0.4 mg HS ESTIVEN Administration Furosemide 40 mg 07/18/25 09:00 07/19/25 09:27 Furosemide 40 Mg Tablet PO 40 mg DAILY ESTIVEN Administration Glucose 15 gm 07/16/25 21:38 Glucose Oral Gel 15 Gm Of Glucse In 37.5 Gm Tube PO PRN PRN Hypoglycemia Protocol Hydroxychloroquine Sulfate 200 mg 07/17/25 17:00 07/19/25 12:32 Hydroxychloroquine Sulfate 200 Mg Tablet PO 200 mg QID ESTIVEN Administration Dextrose 1,000 mls @ 100 mls/hr 07/16/25 21:38 Dextrose 5% 1,000 Ml IVPB PRN PRN Hypoglycemia Protocol Ceftriaxone Sodium 1 gm/ 50 mls @ 100 mls/hr 07/19/25 13:30 Sodium Chloride IVPB QAM ESTIVEN Isosorbide Mononitrate 60 mg 07/17/25 21:00 07/18/25 21:30 Isosorbide Mononitrate 60 Mg Tab.Er.24h PO 60 mg 2100 ESTIVEN Administration Losartan Potassium 25 mg 07/18/25 09:00 07/19/25 09:28 Losartan Potassium 25 Mg Tablet PO 25 mg Q12HR ESTIVEN Administration Metoprolol Tartrate 25 mg 07/17/25 09:00 07/19/25 09:27 Metoprolol Tartrate 25 Mg Tablet PO 25 mg Q12HR ESTIVEN Administration Ondansetron HCl 4 mg 07/17/25 09:50 07/17/25 10:13 Ondansetron Inj 4 Mg/2 Ml Vial IV PUSH 4 mg Q6H PRN Administration Nausea And Vomiting Pantoprazole Sodium 40 mg 07/17/25 09:00 07/19/25 09:29 Pantoprazole 40 Mg Tablet PO 40 mg Q12HR ESTIVEN Administration Polyethylene Glycol 17 gm 07/16/25 21:36 Polyethylene Glycol 3350 17 Gm Powd.Pack PO DAILY PRN Constipation Ranolazine 500 mg 07/18/25 09:00 07/19/25 09:28 Ranolazine 500 Mg Tab.Er.12h PO 500 mg Q12HR ESTIVEN Administration Vitamin D 100 mcg 07/17/25 09:00 07/19/25 09:26 Cholecalciferol (Vitamin D3) 25 Mcg (1,000 Units) Tablet PO 100 mcg DAILY ESTIVEN Administration Radiology Results: ITS Impressions Pelvis CT 07/16/25 17:43 IMPRESSION: Acute displaced vertical left sacral fracture.i All CT scans at this facility are performed using low dose modulation techniques as appropriate to perform exam including the following: automated exposure control; use of iterative reconstruction technique; adjustment of the mA and/or kV according to patient size (this includes techniques or standardized protocols for targeted exams where dose is matched to indication/reason for exam). Ankle X-Ray 07/17/25 09:05 Impression: Fractures detailed above Hand X-Ray 07/17/25 09:05 IMPRESSION: Findings consistent with an evulsion fracture at the proximal and dorsal aspect of the middle phalanx of the fifth digit. There may be an additional fracture with tiny fragment at the palmar aspect. Knee X-Ray 07/17/25 09:05 IMPRESSION: No acute abnormalities are seen. Chest X-Ray 07/19/25 10:46 Impression: No acute cardiopulmonary abnormality. Chest/Abdomen/Pelvis CTA 07/19/25 11:53 IMPRESSION: 1. Development of bilateral pleural effusions, with mild atelectatic changes. No pulmonary emboli seen. 2. Minimally displaced vertical fracture left sacral alar unchanged. 3. Exam somewhat limited as noted above. Labs Labs: Laboratory Results - last 24 hr 07/19/25 07/19/25 07/19/25 05:50 09:56 12:47 WBC 6.6 RBC 3.38 L Hgb 10.8 L Hct 34.1 L MCV 100.9 H MCH 32.0 MCHC 31.7 L RDW 16.5 H Plt Count 231 MPV 8.6 Immature Gran % (Auto) 0.5 Neut % (Auto) 72.9 Lymph % (Auto) 12.3 L [place] % (Auto) 7.7 Eos % (Auto) 6.1 H Baso % (Auto) 0.5 Lymph # (Auto) 0.81 L [place] # (Auto) 0.5 Eos # (Auto) 0.4 H Baso # (Auto) 0.0 Abs Immat Gran (auto) 0.03 Absolute Neuts (auto) 4.8 Absolute Nucleated RBC 0.000 Nucleated RBC % 0.0 D-Dimer 5.69 H Sodium 137 Potassium 3.7 Chloride 104 Carbon Dioxide 28 Anion Gap 5 BUN 16 Creatinine 0.95 Estim Creat Clear Calc 42 Estimated GFR 57 L Glucose 101 Calcium 8.2 L Total Bilirubin 1.0 AST 31 ALT 18 Alkaline Phosphatase 127 H Total Creatine Kinase 122 Total Protein 6.1 L Albumin 3.0 L Urine Color Yellow Urine Appearance Clear Urine pH 5.5 Ur Specific [place] 1.018 Urine Protein Negative Urine Glucose (UA) 1+ H Urine Ketones Negative Ur Blood (Man) Trace Urine Nitrate Negative Urine Bilirubin Negative Urine Urobilinogen 0.2 Ur Leukocyte Esterase 3+ H Urine RBC 0-2 Urine WBC >100 H Ur Squamous Epith Cells None seen Urine Bacteria 4+ H Urine Casts 0-2 Hospitalist MIPS Advance Care Plan I have confirmed that the patient's Advanced Care Plan is present, code status is documented, or surrogate decision maker is listed in patient medical record.: Yes Medication Reconciliation I have utilized all available resources to obtain, update and review the reina sapp current medications (includes all prescriptions, OTC, herbals, cannabis, and nutritional supplements).: Yes
[2025-07-19] MEDS: cefTRIAXone 1 GM in SODIUM CHLORIDE 0.9% IV 50 ML 100 ML IVPB (17:00)
[2025-07-19] MEDS: ATORVASTATIN 40 MG TABLET 80 MG PO (20:47)
[2025-07-19] MEDS: FOLIC ACID 0.4 MG TABLET PO (20:49)
[2025-07-19] MEDS: ISOSORBIDE MONONITRATE 60 MG TAB.ER.24H PO (20:51)
[2025-07-19 21:37] VITALS: BP 150/46; PULSE 72; RESP 18; TEMP 36.2; O2SAT 95
[2025-07-20] MEDS: HYDROcodone/acetaminophen (*CRX) 5-325 MG TABLET 1 TAB PO ×3 (03:48→21:15)
[2025-07-20 05:04] LABS: Add Urine Microscopic? YES; Appearance Urine Turbid (Clear); Glucose Urine UA 2+ mg/dL (Negative); Leukocyte Esterase Ur 3+ LEU/UL (Negative); Nitrate Urine Positive (Negative); Non Pathogenic Casts 0-2; Specific Grav Ur 1.033 (1.001-1.035)
[2025-07-20 06:00] VITALS: BP 137/51; PULSE 58; RESP 18; TEMP 36.7; O2SAT 97
[2025-07-20 06:34] LABS: Hematocrit 34.2 % (37.0-47.0); Hemoglobin 10.9 g/dL (12.0-15.0); Immature Granulocyte Percent A 0.2 % (0-0.5); Lymphocytes Absolute Auto 0.92 K/mm3 (0.9-3.2); Mean Corpuscular HGB Conc 31.9 g/dl (32-36); Mean Corpuscular Hemoglobin 31.7 pg (26-34); Mean Corpuscular Volume 99.4 fl (80-100); Nucleated Red Blood Cells Absolute Auto 0.000 K/mm3 (0.0-0.012); Nucleated Red Blood Cells Perc 0.0 % (0.0-0.2); Platelet Count Result 243 k/mm3 (150-375); Red Blood Count 3.44 M/mm3 (4.2-5.4); White Blood Count 8.2 K/mm3 (4.5-10.0)
[2025-07-20 06:55] LABS: Alanine Aminotransferase 19 U/L (6-35); Albumin Level 3.0 g/dL (3.5-5.1); Alkaline Phosphatase 141 U/L (38-126); Anion Gap 5 mmol/L (4-12); Aspartate Amino Transferase 34 U/L (14-36); Bilirubin,Total 1.0 mg/dL (0.2-1.3); Blood Urea Nitrogen 15 mg/dL (7-17); Calcium 8.2 mg/dL (8.4-10.2); Carbon Dioxide 32 mmol/L (22-30); Chloride 99 mmol/L (98-107); Estimated CRCL calculation 40 ml/min; Estimated Glomerular Filt Rate 53; Glucose 93 mg/dL (65-110); Potassium 3.6 mmol/L (3.4-5.0); Sodium 136 mmol/L (137-145); Total Protein 6.1 g/dL (6.3-8.2)
[2025-07-20] MEDS: LOSARTAN POTASSIUM 25 MG TABLET PO ×2 (09:28→21:03)
[2025-07-20] MEDS: ASPIRIN 81 MG CHEWABLE TABLET PO ×2 (09:29→16:40)
[2025-07-20] MEDS: FUROSEMIDE 40 MG TABLET PO (09:29)
[2025-07-20] MEDS: RANOLAZINE 500 MG TAB.ER.12H PO ×2 (09:29→21:04)
[2025-07-20] MEDS: CHOLECALCIFEROL (VITAMIN D3) 25 MCG (1,000 UNITS) TABLET 100 MCG PO (09:29)
[2025-07-20 09:30] VITALS: PULSE 10
[2025-07-20] MEDS: METOPROLOL TARTRATE 25 MG TABLET PO ×2 (09:30→21:04)
[2025-07-20] MEDS: PANTOPRAZOLE 40 MG TABLET PO ×2 (09:30→21:05)
[2025-07-20] MEDS: EMPAGLIFLOZIN 10 MG TABLET PO (09:30)
[2025-07-20] MEDS: cefTRIAXone 1 GM in SODIUM CHLORIDE 0.9% IV 50 ML 100 ML IVPB (09:31)
[2025-07-20] MEDS: HYDROXYCHLOROQUINE SULFATE 200 MG TABLET PO ×4 (09:31→21:03)
--- NOTE | 2025-07-20 10:35 | PM.IMPN ---
Progress Note: A&P Assessment and Plan (1) Closed sacral fracture: Code(s): S32.10XA - Unspecified fracture of sacrum, initial encounter for closed fracture Status: Acute Assessment and Plan: orthopedic surgery following WBAT PT/OT pain control patient will need admission to Rehab on discharge care coordination following (2) Chest pain: Code(s): R07.9 - Chest pain, unspecified Status: Acute Assessment and Plan: Patient reported chest pressure this morning located bilaterally the inferior aspect of the ribcage. EKG nonischemic. D-dimer was conducted to rule out PE, came back elevated at 5.62, prompting CT chest PE protocol which was negative for PE but did show bilateral pleural effusions. My visualization of CT of the chest shows minimal pleural effusions more on the right than the left. Patient does have known history of congestive heart failure but has not been in exacerbation during hospitalization. Gave IV Lasix dose today Monitor for improvement of chest pain Consider repeat x-ray in the morning (3) UTI (urinary tract infection): Code(s): N39.0 - Urinary tract infection, site not specified Status: Acute Assessment and Plan: Patient then had onset of brown urine today. No complaint of urinary symptoms. Initial UA on admission showed 1+ protein however repeat shows no protein, trace blood, 0-2 rbc's, 3+ leukocyte esterase, no squamous epithelial cells and 4+ bacteria. As such culture will be sent out. Initial concern for glomerulonephritis however no protein and minimal to no blood on urine. Urinalysis has been repeated this morning, showing 1+ protein, 2+ glucose, 2+ blood, nitrate positive, leukocyte esterase 3+, RBC 3-5, bacteria 3+, casts 0-2. Culture has been repeated as well. Follow urine culture Ceftriaxone has been started Patient denies significant urinary symptoms at this time. (4) Left ankle pain: Qualifiers: Chronicity: acute Qualified Code(s): M25.572 - Pain in left ankle and joints of left foot Code(s): M25.572 - Pain in left ankle and joints of left foot Status: Acute Assessment and Plan: orthopedic surgery following x-rays ordered per ortho pain control PT/OT (5) Left knee pain: Qualifiers: Chronicity: acute Qualified Code(s): M25.562 - Pain in left knee Code(s): M25.562 - Pain in left knee Status: Acute Assessment and Plan: orthopedic surgery following x-rays ordered per ortho pain control PT/OT (6) Fracture of phalanx of digit of hand: Qualifiers: Encounter type: initial encounter Fracture type: closed Qualified Code(s): S62.609A - Fracture of unspecified phalanx of unspecified finger, initial encounter for closed fracture Code(s): S62.609A - Fracture of unspecified phalanx of unspecified finger, initial encounter for closed fracture Status: Acute Assessment and Plan: orthopedic surgery following x-rays ordered per ortho ortho removed the splint the patient has had in place for the last 2 weeks after being seen in the ER at [facility]-currently stef-taped fingers pain control PT/OT (7) Hypertension: Code(s): I10 - Essential (primary) hypertension Status: Acute Assessment and Plan: restart home medications amlodipine 5 mg PO daily Furosemide 40 mg PO daily losartan 25 mg PO daily metoprolol 25 mg PO BID monitor blood pressures and adjust as indicated (8) HLD (hyperlipidemia): Code(s): E78.5 - Hyperlipidemia, unspecified Status: Acute Assessment and Plan: continue home atorvastatin 80 mg PO daily (9) CAD (coronary artery disease): Code(s): I25.10 - Atherosclerotic heart disease of [place] coronary artery without angina pectoris Status: Acute Assessment and Plan: patient denies chest pain continue home medications isosorbide 60 mg PO BID ASA 81 mg PO daily atorvastatin 80 mg PO daily (10) Squamous cell carcinoma of lower leg: Code(s): C44.721 - Squamous cell carcinoma of skin of unspecified lower limb, including hip Status: Acute Assessment and Plan: Patient has 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 She was getting a transfusion with [facility] and she fell. She was transferred to [facility], x-rays did not reveal any fracture. She was sent home. PCP sent the patient back to [facility] which revealed a sacral fracture. The patient was sent home, she has been getting progressively weak. She has a lot of pain. No decreased sensation or focal weakness. No urinary incontinence, no fecal incontinence. Pelvis CT without contrast demonstrates acute displaced vertical left sacral fracture, orthopedic surgery consulted. Refer to ER physician's note, patient's demanded transfer, they contacted [facility] and the hospitalist refuse transfer due to it being a lateral transfer. The was verbally cantankerous but ultimately agreed for admission, orthopedic surgery consultation and placement. Review of Systems Review of Systems: All systems reviewed & are unremarkable except as noted in HPI and below (Subjective) Exam Const: General: comfortable and no acute distress HENMT: Mouth: Yes moist mucous membranes Eyes: Pupils: Equal, round and reactive pupils present Neck: Neck: supple Resp: Effort & Inspection: normal respiratory effort Auscultation: clear to auscultation bilaterally Cardio: Rate: regular rate Rhythm: regular rhythm GI: Inspection: non-distended GI Palp: Yes Soft to palpation Auscultation: normal bowel sounds Neuro: Cranial nerves: Yes Equal, round and reactive pupils present Extrem: Other: left lower extremity chronic wound, no purulent drainage. right BKA Psych: Mental Status: mental status grossly normal Affect: normal affect Objective Data Vital Signs Vital Signs: Vital Signs - 24 hr 07/19/25 14:00 07/19/25 20:00 07/19/25 21:37 Temperature 99.1 F 97.1 F L Pulse Rate 70 72 Respiratory Rate 18 18 Blood Pressure 157/72 H 150/46 H Pulse Oximetry 97 95 Oxygen Delivery Room Air 07/20/25 06:00 07/20/25 09:30 Temperature 98.0 F Pulse Rate 58 L 10 L Respiratory Rate 18 Blood Pressure 137/51 L Pulse Oximetry 97 Oxygen Delivery Intake/Output Intake/Output: Intake & Output 07/17/25 07/18/25 07/19/25 07/20/25 23:59 23:59 23:59 23:59 Intake Total 90 1822 770 370 Output Total 600 1650 400 Balance 90 1222 -880 -30 Meds/Results Medications: Active Medications Generic Name Dose Route Start Last Admin Trade Name Freq PRN Reason Stop Dose Admin Hydrocodone Bitart/Acetaminophen 1 tab 07/16/25 21:36 07/20/25 03:48 Hydrocodone/Acetaminophen (*Crx) 5-325 Mg Tablet PO 1 tab Q4-6H PRN Administration pain (scale score 4-6) Amlodipine Besylate 5 mg 07/17/25 21:00 07/19/25 20:48 Amlodipine Besylate 5 Mg Tablet PO 5 mg HS ESTIVEN Administration Aspirin 81 mg 07/17/25 17:00 07/20/25 09:29 Aspirin 81 Mg Chewable Tablet PO 81 mg BID ESTIVEN Administration Atorvastatin Calcium 80 mg 07/16/25 21:40 07/19/25 20:47 Atorvastatin 40 Mg Tablet PO 80 mg HS ESTIVEN Administration Bisacodyl 5 mg 07/16/25 21:36 Bisacodyl 5 Mg Tablet Ec PO DAILY PRN Constipation Dextrose 12.5 gm 07/16/25 21:38 Dextrose 50% 25 Gm/50 Ml Syringe IV PUSH PRN PRN Hypoglycemia Protocol Empagliflozin 10 mg 07/18/25 09:00 07/20/25 09:30 Empagliflozin 10 Mg Tablet PO 10 mg DAILY ESTIVEN Administration Fluticasone Propionate 1 spray 07/16/25 21:36 Fluticasone Propionate 0.05% Na Spr 16 Gm Btl (*Bkc) NASAL Q12H PRN allergy symptoms Folic Acid 0.4 mg 07/16/25 21:45 07/19/25 20:49 Folic Acid 0.4 Mg Tablet PO 0.4 mg HS ESTIVEN Administration Furosemide 40 mg 07/18/25 09:00 07/20/25 09:29 Furosemide 40 Mg Tablet PO 40 mg DAILY ESTIVEN Administration Glucose 15 gm 07/16/25 21:38 Glucose Oral Gel 15 Gm Of Glucse In 37.5 Gm Tube PO PRN PRN Hypoglycemia Protocol Hydroxychloroquine Sulfate 200 mg 07/17/25 17:00 07/20/25 09:31 Hydroxychloroquine Sulfate 200 Mg Tablet PO 200 mg QID ESTIVEN Administration Dextrose 1,000 mls @ 100 mls/hr 07/16/25 21:38 Dextrose 5% 1,000 Ml IVPB PRN PRN Hypoglycemia Protocol Ceftriaxone Sodium 1 gm/ 50 mls @ 100 mls/hr 07/19/25 13:30 07/20/25 09:31 Sodium Chloride IVPB 100 mls/hr QAM ESTIVEN Administration Isosorbide Mononitrate 60 mg 07/17/25 21:00 07/19/25 20:51 Isosorbide Mononitrate 60 Mg Tab.Er.24h PO 60 mg 2100 ESTIVEN Administration Losartan Potassium 25 mg 07/18/25 09:00 07/20/25 09:28 Losartan Potassium 25 Mg Tablet PO 25 mg Q12HR ESTIVEN Administration Metoprolol Tartrate 25 mg 07/17/25 09:00 07/20/25 09:30 Metoprolol Tartrate 25 Mg Tablet PO 25 mg Q12HR ESTIVEN Administration Ondansetron HCl 4 mg 07/17/25 09:50 07/17/25 10:13 Ondansetron Inj 4 Mg/2 Ml Vial IV PUSH 4 mg Q6H PRN Administration Nausea And Vomiting Pantoprazole Sodium 40 mg 07/17/25 09:00 07/20/25 09:30 Pantoprazole 40 Mg Tablet PO 40 mg Q12HR ESTIVEN Administration Polyethylene Glycol 17 gm 07/16/25 21:36 07/20/25 09:32 Polyethylene Glycol 3350 17 Gm Powd.Pack PO 17 gm DAILY PRN Administration Constipation Ranolazine 500 mg 07/18/25 09:00 07/20/25 09:29 Ranolazine 500 Mg Tab.Er.12h PO 500 mg Q12HR ESTIVEN Administration Vitamin D 100 mcg 07/17/25 09:00 07/20/25 09:29 Cholecalciferol (Vitamin D3) 25 Mcg (1,000 Units) Tablet PO 100 mcg DAILY ESTIVEN Administration Radiology Results: ITS Impressions Pelvis CT 07/16/25 17:43 IMPRESSION: Acute displaced vertical left sacral fracture.i All CT scans at this facility are performed using low dose modulation techniques as appropriate to perform exam including the following: automated exposure control; use of iterative reconstruction technique; adjustment of the mA and/or kV according to patient size (this includes techniques or standardized protocols for targeted exams where dose is matched to indication/reason for exam). Ankle X-Ray 07/17/25 09:05 Impression: Fractures detailed above Hand X-Ray 07/17/25 09:05 IMPRESSION: Findings consistent with an evulsion fracture at the proximal and dorsal aspect of the middle phalanx of the fifth digit. There may be an additional fracture with tiny fragment at the palmar aspect. Knee X-Ray 07/17/25 09:05 IMPRESSION: No acute abnormalities are seen. Chest X-Ray 07/19/25 10:46 Impression: No acute cardiopulmonary abnormality. Chest/Abdomen/Pelvis CTA 07/19/25 11:53 IMPRESSION: 1. Development of bilateral pleural effusions, with mild atelectatic changes. No pulmonary emboli seen. 2. Minimally displaced vertical fracture left sacral alar unchanged. 3. Exam somewhat limited as noted above. Labs Labs: Laboratory Results - last 24 hr 07/19/25 07/19/25 07/20/25 05:50 12:47 04:52 WBC RBC Hgb Hct MCV MCH MCHC RDW Plt Count MPV Immature Gran % (Auto) Neut % (Auto) Lymph % (Auto) [place] % (Auto) Eos % (Auto) Baso % (Auto) Lymph # (Auto) [place] # (Auto) Eos # (Auto) Baso # (Auto) Abs Immat Gran (auto) Absolute Neuts (auto) Absolute Nucleated RBC Nucleated RBC % Sodium Potassium Chloride Carbon Dioxide Anion Gap BUN Creatinine Estim Creat Clear Calc Estimated GFR Glucose Calcium Total Bilirubin AST ALT Alkaline Phosphatase Total Creatine Kinase 122 Total Protein Albumin Urine Color Yellow Yellow Urine Appearance Clear Turbid H Urine pH 5.5 5.0 Ur Specific [place] 1.018 1.033 Urine Protein Negative 1+ H Urine Glucose (UA) 1+ H 2+ H Urine Ketones Negative Negative Ur Blood (Man) Trace 2+ H Urine Nitrate Negative Positive H Urine Bilirubin Negative Negative Urine Urobilinogen 0.2 1.0 Ur Leukocyte Esterase 3+ H Leukocyte Esterase Rfl 3+ H Urine RBC 0-2 3-5 H Urine WBC >100 H >100 H Ur Squamous Epith Cells None seen None seen Urine Bacteria 4+ H 3+ H Urine Casts 0-2 0-2 07/20/25 06:23 WBC 8.2 RBC 3.44 L Hgb 10.9 L Hct 34.2 L MCV 99.4 MCH 31.7 MCHC 31.9 L RDW 16.5 H Plt Count 243 MPV 8.7 Immature Gran % (Auto) 0.2 Neut % (Auto) 77.2 H Lymph % (Auto) 11.2 L [place] % (Auto) 7.2 Eos % (Auto) 3.8 Baso % (Auto) 0.4 Lymph # (Auto) 0.92 [place] # (Auto) 0.6 Eos # (Auto) 0.3 Baso # (Auto) 0.0 Abs Immat Gran (auto) 0.02 Absolute Neuts (auto) 6.4 Absolute Nucleated RBC 0.000 Nucleated RBC % 0.0 Sodium 136 L Potassium 3.6 Chloride 99 Carbon Dioxide 32 H Anion Gap 5 BUN 15 Creatinine 1.00 Estim Creat Clear Calc 40 Estimated GFR 53 L Glucose 93 Calcium 8.2 L Total Bilirubin 1.0 AST 34 ALT 19 Alkaline Phosphatase 141 H Total Creatine Kinase Total Protein 6.1 L Albumin 3.0 L Urine Color Urine Appearance Urine pH Ur Specific [place] Urine Protein Urine Glucose (UA) Urine Ketones Ur Blood (Man) Urine Nitrate Urine Bilirubin Urine Urobilinogen Ur Leukocyte Esterase Leukocyte Esterase Rfl Urine RBC Urine WBC Ur Squamous Epith Cells Urine Bacteria Urine Casts Hospitalist MIPS Advance Care Plan I have confirmed that the patient's Advanced Care Plan is present, code status is documented, or surrogate decision maker is listed in patient medical record.: Yes Medication Reconciliation I have utilized all available resources to obtain, update and review the patients current medications (includes all prescriptions, OTC, herbals, cannabis, and nutritional supplements).: Yes
[2025-07-20 14:57] VITALS: BP 125/44; PULSE 62; RESP 16; TEMP 36.7; O2SAT 94
[2025-07-20] MEDS: ATORVASTATIN 40 MG TABLET 80 MG PO (21:02)
[2025-07-20] MEDS: FOLIC ACID 0.4 MG TABLET PO (21:02)
[2025-07-20 21:04] VITALS: PULSE 65
[2025-07-20] MEDS: ISOSORBIDE MONONITRATE 60 MG TAB.ER.24H PO (21:09)
[2025-07-20 22:00] VITALS: BP 139/50; PULSE 65; RESP 18; TEMP 37.2; O2SAT 93
[2025-07-21 06:00] VITALS: BP 137/43; PULSE 59; RESP 16; TEMP 36.7; O2SAT 95
[2025-07-21 07:14] LABS: Hematocrit 36.3 % (37.0-47.0); Hemoglobin 11.6 g/dL (12.0-15.0); Immature Granulocyte Percent A 0.4 % (0-0.5); Lymphocytes Absolute Auto 0.75 K/mm3 (0.9-3.2); Mean Corpuscular HGB Conc 32.0 g/dl (32-36); Mean Corpuscular Hemoglobin 32.0 pg (26-34); Mean Corpuscular Volume 100.3 fl (80-100); Nucleated Red Blood Cells Absolute Auto 0.000 K/mm3 (0.0-0.012); Nucleated Red Blood Cells Perc 0.0 % (0.0-0.2); Platelet Count Result 264 k/mm3 (150-375); Red Blood Count 3.62 M/mm3 (4.2-5.4); White Blood Count 6.7 K/mm3 (4.5-10.0)
[2025-07-21 07:40] LABS: Alanine Aminotransferase 21 U/L (6-35); Albumin Level 3.1 g/dL (3.5-5.1); Alkaline Phosphatase 149 U/L (38-126); Anion Gap 9 mmol/L (4-12); Aspartate Amino Transferase 35 U/L (14-36); Bilirubin,Total 1.2 mg/dL (0.2-1.3); Blood Urea Nitrogen 19 mg/dL (7-17); Calcium 8.2 mg/dL (8.4-10.2); Carbon Dioxide 28 mmol/L (22-30); Chloride 99 mmol/L (98-107); Estimated CRCL calculation 37 ml/min; Estimated Glomerular Filt Rate 48; Glucose 80 mg/dL (65-110); Potassium 3.2 mmol/L (3.4-5.0); Sodium 136 mmol/L (137-145); Total Protein 6.2 g/dL (6.3-8.2)
[2025-07-21 09:05] VITALS: PULSE 67
[2025-07-21] MEDS: PANTOPRAZOLE 40 MG TABLET PO ×2 (09:05→21:03)
[2025-07-21] MEDS: ASPIRIN 81 MG CHEWABLE TABLET PO ×2 (09:05→17:28)
[2025-07-21] MEDS: METOPROLOL TARTRATE 25 MG TABLET PO ×2 (09:05→21:04)
[2025-07-21] MEDS: EMPAGLIFLOZIN 10 MG TABLET PO (09:05)
[2025-07-21] MEDS: RANOLAZINE 500 MG TAB.ER.12H PO ×2 (09:05→21:03)
[2025-07-21] MEDS: CHOLECALCIFEROL (VITAMIN D3) 25 MCG (1,000 UNITS) TABLET 100 MCG PO (09:05)
[2025-07-21] MEDS: HYDROXYCHLOROQUINE SULFATE 200 MG TABLET PO ×4 (09:08→21:03)
[2025-07-21] MEDS: LOSARTAN POTASSIUM 25 MG TABLET PO ×2 (09:09→21:04)
[2025-07-21] MEDS: FUROSEMIDE 40 MG TABLET PO (09:09)
[2025-07-21] MEDS: HYDROcodone/acetaminophen (*CRX) 5-325 MG TABLET 1 TAB PO (09:13)
[2025-07-21] MEDS: cefTRIAXone 1 GM in SODIUM CHLORIDE 0.9% IV 50 ML 100 ML IVPB (09:13)
--- NOTE | 2025-07-21 11:42 | P.PNIM_ITS ---
Progress Note: A&P Assessment and Plan (1) Closed sacral fracture: Code(s): S32.10XA - Unspecified fracture of sacrum, initial encounter for closed fracture Status: Acute Assessment and Plan: orthopedic surgery following WBAT PT/OT pain control patient will need admission to Rehab on discharge care coordination following (2) Chest pain: Code(s): R07.9 - Chest pain, unspecified Status: Acute Assessment and Plan: Patient reported chest pressure this morning located bilaterally the inferior aspect of the ribcage. EKG nonischemic. D-dimer was conducted to rule out PE, came back elevated at 5.62, prompting CT chest PE protocol which was negative for PE but did show bilateral pleural effusions. My visualization of CT of the chest shows minimal pleural effusions more on the right than the left. Patient does have known history of congestive heart failure but has not been in exacerbation during hospitalization. Gave IV Lasix dose today Monitor for improvement of chest pain (3) UTI (urinary tract infection): Code(s): N39.0 - Urinary tract infection, site not specified Status: Acute Assessment and Plan: Patient then had onset of brown urine today. No complaint of urinary symptoms. Initial UA on admission showed 1+ protein however repeat shows no protein, trace blood, 0-2 rbc's, 3+ leukocyte esterase, no squamous epithelial cells and 4+ bacteria. As such culture will be sent out. Initial concern for glomerulonephritis however no protein and minimal to no blood on urine. Urinalysis has been repeated this morning, showing 1+ protein, 2+ glucose, 2+ blood, nitrate positive, leukocyte esterase 3+, RBC 3-5, bacteria 3+, casts 0-2. Culture has been repeated as well. Follow urine culture- Gram negative bacilli. Follow final result. Ceftriaxone has been started, Day 3 Patient denies significant urinary symptoms at this time. (4) Left ankle pain: Qualifiers: Chronicity: acute Qualified Code(s): M25.572 - Pain in left ankle and joints of left foot Code(s): M25.572 - Pain in left ankle and joints of left foot Status: Acute Assessment and Plan: orthopedic surgery following x-rays ordered per ortho pain control PT/OT (5) Left knee pain: Qualifiers: Chronicity: acute Qualified Code(s): M25.562 - Pain in left knee Code(s): M25.562 - Pain in left knee Status: Acute Assessment and Plan: orthopedic surgery following x-rays ordered per ortho pain control PT/OT (6) Fracture of phalanx of digit of hand: Qualifiers: Encounter type: initial encounter Fracture type: closed Qualified Code(s): S62.609A - Fracture of unspecified phalanx of unspecified finger, initial encounter for closed fracture Code(s): S62.609A - Fracture of unspecified phalanx of unspecified finger, initial encounter for closed fracture Status: Acute Assessment and Plan: orthopedic surgery following x-rays ordered per ortho ortho removed the splint the patient has had in place for the last 2 weeks after being seen in the ER at [facility]-currently stef-taped fingers pain control PT/OT (7) Hypertension: Code(s): I10 - Essential (primary) hypertension Status: Acute Assessment and Plan: restart home medications amlodipine 5 mg PO daily Furosemide 40 mg PO daily losartan 25 mg PO daily metoprolol 25 mg PO BID monitor blood pressures and adjust as indicated (8) HLD (hyperlipidemia): Code(s): E78.5 - Hyperlipidemia, unspecified Status: Acute Assessment and Plan: continue home atorvastatin 80 mg PO daily (9) CAD (coronary artery disease): Code(s): I25.10 - Atherosclerotic heart disease of [place] coronary artery without angina pectoris Status: Acute Assessment and Plan: patient denies chest pain continue home medications isosorbide 60 mg PO BID ASA 81 mg PO daily atorvastatin 80 mg PO daily (10) Squamous cell carcinoma of lower leg: Code(s): C44.721 - Squamous cell carcinoma of skin of unspecified lower limb, including hip Status: Acute Assessment and Plan: 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 Initially had brown urine and this has cleared up with antibiotics and oral hydration. Follow urine culture final result for adjustment of antibiotics if needed. 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 She was getting a transfusion with [facility] and she fell. She was transferred to [facility], x-rays did not reveal any fracture. She was sent home. PCP sent the patient back to [facility] and the [facility] which revealed a sacral fracture. The patient was sent home, she has been getting progressively weak. She has a lot of pain. No decreased sensation or focal weakness. No urinary incontinence, no fecal incontinence. Pelvis CT without contrast demonstrates acute displaced vertical left sacral fracture, orthopedic surgery consulted. Refer to ER physician's note, patient's demanded transfer, they contacted [facility] and the hospitalist refuse transfer due to it being a lateral transfer. The was verbally cantankerous but ultimately agreed for admission, orthopedic surgery consultation and placement. Review of Systems Review of Systems: All systems reviewed & are unremarkable except as noted in HPI and below (Subjective) Exam Const: General: comfortable and no acute distress HENMT: Mouth: Yes moist mucous membranes Eyes: Pupils: Equal, round and reactive pupils present Neck: Neck: supple Resp: Effort & Inspection: normal respiratory effort Auscultation: clear to auscultation bilaterally Cardio: Rate: regular rate Rhythm: regular rhythm GI: Inspection: non-distended GI Palp: Yes Soft to palpation Auscultation: normal bowel sounds Neuro: Cranial nerves: Yes Equal, round and reactive pupils present Extrem: Other: left lower extremity chronic wound, no purulent drainage. right BKA Psych: Mental Status: mental status grossly normal Affect: normal affect Objective Data Vital Signs Vital Signs: Vital Signs - 24 hr 07/20/25 14:57 07/20/25 21:04 07/20/25 22:00 Temperature 98.1 F 99.0 F Pulse Rate 62 65 65 Respiratory Rate 16 18 Blood Pressure 125/44 L 139/50 L Pulse Oximetry 94 93 07/21/25 06:00 07/21/25 09:05 Temperature 98.0 F Pulse Rate 59 L 67 Respiratory Rate 16 Blood Pressure 137/43 L Pulse Oximetry 95 Intake/Output Intake/Output: Intake & Output 07/18/25 07/19/25 07/20/25 07/21/25 23:59 23:59 23:59 23:59 Intake Total 1822 770 790 200 Output Total 600 1650 600 300 Balance 1222 -880 190 -100 Meds/Results Medications: Active Medications Generic Name Dose Route Start Last Admin Trade Name Freq PRN Reason Stop Dose Admin Hydrocodone Bitart/Acetaminophen 1 tab 07/16/25 21:36 07/21/25 09:13 Hydrocodone/Acetaminophen (*Crx) 5-325 Mg Tablet PO 1 tab Q4-6H PRN Administration pain (scale score 4-6) Amlodipine Besylate 5 mg 07/17/25 21:00 07/20/25 21:01 Amlodipine Besylate 5 Mg Tablet PO 5 mg HS ESTIVEN Administration Aspirin 81 mg 07/17/25 17:00 07/21/25 09:05 Aspirin 81 Mg Chewable Tablet PO 81 mg BID ESTIVEN Administration Atorvastatin Calcium 80 mg 07/16/25 21:40 07/20/25 21:02 Atorvastatin 40 Mg Tablet PO 80 mg HS ESTIVEN Administration Bisacodyl 5 mg 07/16/25 21:36 Bisacodyl 5 Mg Tablet Ec PO DAILY PRN Constipation Dextrose 12.5 gm 07/16/25 21:38 Dextrose 50% 25 Gm/50 Ml Syringe IV PUSH PRN PRN Hypoglycemia Protocol Empagliflozin 10 mg 07/18/25 09:00 07/21/25 09:05 Empagliflozin 10 Mg Tablet PO 10 mg DAILY ESTIVEN Administration Fluticasone Propionate 1 spray 07/16/25 21:36 Fluticasone Propionate 0.05% Na Spr 16 Gm Btl (*Bkc) NASAL Q12H PRN allergy symptoms Folic Acid 0.4 mg 07/16/25 21:45 07/20/25 21:02 Folic Acid 0.4 Mg Tablet PO 0.4 mg HS ESTIVEN Administration Furosemide 40 mg 07/18/25 09:00 07/21/25 09:09 Furosemide 40 Mg Tablet PO 40 mg DAILY ESTIVEN Administration Glucose 15 gm 07/16/25 21:38 Glucose Oral Gel 15 Gm Of Glucse In 37.5 Gm Tube PO PRN PRN Hypoglycemia Protocol Hydroxychloroquine Sulfate 200 mg 07/17/25 17:00 07/21/25 09:08 Hydroxychloroquine Sulfate 200 Mg Tablet PO 200 mg QID ETSIVEN Administration Dextrose 1,000 mls @ 100 mls/hr 07/16/25 21:38 Dextrose 5% 1,000 Ml IVPB PRN PRN Hypoglycemia Protocol Ceftriaxone Sodium 1 gm/ 50 mls @ 100 mls/hr 07/19/25 13:30 07/21/25 09:13 Sodium Chloride IVPB 100 mls/hr QAM ESTIVEN Administration Isosorbide Mononitrate 60 mg 07/17/25 21:00 07/20/25 21:09 Isosorbide Mononitrate 60 Mg Tab.Er.24h PO 60 mg 2100 ESTIVEN Administration Losartan Potassium 25 mg 07/18/25 09:00 07/21/25 09:09 Losartan Potassium 25 Mg Tablet PO 25 mg Q12HR ESTIVEN Administration Metoprolol Tartrate 25 mg 07/17/25 09:00 07/21/25 09:05 Metoprolol Tartrate 25 Mg Tablet PO 25 mg Q12HR ESTIVEN Administration Ondansetron HCl 4 mg 07/17/25 09:50 07/17/25 10:13 Ondansetron Inj 4 Mg/2 Ml Vial IV PUSH 4 mg Q6H PRN Administration Nausea And Vomiting Pantoprazole Sodium 40 mg 07/17/25 09:00 07/21/25 09:05 Pantoprazole 40 Mg Tablet PO 40 mg Q12HR ESTIVEN Administration Polyethylene Glycol 17 gm 07/16/25 21:36 07/20/25 09:32 Polyethylene Glycol 3350 17 Gm Powd.Pack PO 17 gm DAILY PRN Administration Constipation Ranolazine 500 mg 07/18/25 09:00 07/21/25 09:05 Ranolazine 500 Mg Tab.Er.12h PO 500 mg Q12HR ESTIVEN Administration Vitamin D 100 mcg 07/17/25 09:00 07/21/25 09:05 Cholecalciferol (Vitamin D3) 25 Mcg (1,000 Units) Tablet PO 100 mcg DAILY ESTIVEN Administration Radiology Results: ITS Impressions Pelvis CT 07/16/25 17:43 IMPRESSION: Acute displaced vertical left sacral fracture.i All CT scans at this facility are performed using low dose modulation techniques as appropriate to perform exam including the following: automated exposure control; use of iterative reconstruction technique; adjustment of the mA and/or kV according to patient size (this includes techniques or standardized protocols for targeted exams where dose is matched to indication/reason for exam). Ankle X-Ray 07/17/25 09:05 Impression: Fractures detailed above Hand X-Ray 07/17/25 09:05 IMPRESSION: Findings consistent with an evulsion fracture at the proximal and dorsal aspect of the middle phalanx of the fifth digit. There may be an additional fracture with tiny fragment at the palmar aspect. Knee X-Ray 07/17/25 09:05 IMPRESSION: No acute abnormalities are seen. Chest X-Ray 07/19/25 10:46 Impression: No acute cardiopulmonary abnormality. Chest/Abdomen/Pelvis CTA 07/19/25 11:53 IMPRESSION: 1. Development of bilateral pleural effusions, with mild atelectatic changes. No pulmonary emboli seen. 2. Minimally displaced vertical fracture left sacral alar unchanged. 3. Exam somewhat limited as noted above. Labs Labs: Laboratory Results - last 24 hr 07/21/25 06:04 WBC 6.7 RBC 3.62 L Hgb 11.6 L Hct 36.3 L MCV 100.3 H MCH 32.0 MCHC 32.0 RDW 16.5 H Plt Count 264 MPV 9.0 Immature Gran % (Auto) 0.4 Neut % (Auto) 74.2 H Lymph % (Auto) 11.2 L [place] % (Auto) 8.4 Eos % (Auto) 5.2 H Baso % (Auto) 0.6 Lymph # (Auto) 0.75 L [place] # (Auto) 0.6 Eos # (Auto) 0.4 H Baso # (Auto) 0.0 Abs Immat Gran (auto) 0.03 Absolute Neuts (auto) 5.0 Absolute Nucleated RBC 0.000 Nucleated RBC % 0.0 Sodium 136 L Potassium 3.2 L Chloride 99 Carbon Dioxide 28 Anion Gap 9 BUN 19 H Creatinine 1.10 H Estim Creat Clear Calc 37 Estimated GFR 48 L Glucose 80 Calcium 8.2 L Total Bilirubin 1.2 AST 35 ALT 21 Alkaline Phosphatase 149 H Total Protein 6.2 L Albumin 3.1 L Hospitalist MIPS Advance Care Plan I have confirmed that the patient's Advanced Care Plan is present, code status is documented, or surrogate decision maker is listed in patient medical record.: Yes Medication Reconciliation I have utilized all available resources to obtain, update and review the patients current medications (includes all prescriptions, OTC, herbals, cannabis, and nutritional supplements).: Yes
[2025-07-21] MEDS: POTASSIUM CHLORIDE 20 MEQ ER TABLET 40 MEQ PO (12:12)
[2025-07-21 14:00] VITALS: BP 118/45; PULSE 65; RESP 22; TEMP 35.7; O2SAT 92
[2025-07-21] MEDS: BISACODYL 5 MG TABLET EC PO (21:03)
[2025-07-21] MEDS: ATORVASTATIN 40 MG TABLET 80 MG PO (21:03)
[2025-07-21 21:04] VITALS: PULSE 66
[2025-07-21] MEDS: FOLIC ACID 0.4 MG TABLET PO (21:04)
[2025-07-21] MEDS: ISOSORBIDE MONONITRATE 60 MG TAB.ER.24H PO (21:07)
[2025-07-21 22:00] VITALS: BP 118/82; PULSE 65; RESP 18; TEMP 36.9; O2SAT 96
[2025-07-22 06:00] VITALS: BP 117/35; PULSE 68; RESP 16; TEMP 36.4; O2SAT 95
[2025-07-22 06:51] LABS: Hematocrit 36.3 % (37.0-47.0); Hemoglobin 11.6 g/dL (12.0-15.0); Immature Granulocyte Percent A 0.3 % (0-0.5); Lymphocytes Absolute Auto 0.75 K/mm3 (0.9-3.2); Mean Corpuscular HGB Conc 32.0 g/dl (32-36); Mean Corpuscular Hemoglobin 31.9 pg (26-34); Mean Corpuscular Volume 99.7 fl (80-100); Nucleated Red Blood Cells Absolute Auto 0.000 K/mm3 (0.0-0.012); Nucleated Red Blood Cells Perc 0.0 % (0.0-0.2); Platelet Count Result 256 k/mm3 (150-375); Red Blood Count 3.64 M/mm3 (4.2-5.4); White Blood Count 6.4 K/mm3 (4.5-10.0)
[2025-07-22 07:15] LABS: Alanine Aminotransferase 20 U/L (6-35); Albumin Level 3.2 g/dL (3.5-5.1); Alkaline Phosphatase 173 U/L (38-126); Anion Gap 7 mmol/L (4-12); Aspartate Amino Transferase 33 U/L (14-36); Bilirubin,Total 1.0 mg/dL (0.2-1.3); Blood Urea Nitrogen 16 mg/dL (7-17); Calcium 8.6 mg/dL (8.4-10.2); Carbon Dioxide 27 mmol/L (22-30); Chloride 103 mmol/L (98-107); Estimated CRCL calculation 40 ml/min; Estimated Glomerular Filt Rate 53; Glucose 96 mg/dL (65-110); Potassium 3.6 mmol/L (3.4-5.0); Sodium 137 mmol/L (137-145); Total Protein 6.4 g/dL (6.3-8.2)
--- NOTE | 2025-07-22 08:01 | P.PNIM_ITS ---
Progress Note: A&P Assessment and Plan (1) Closed sacral fracture: Code(s): S32.10XA - Unspecified fracture of sacrum, initial encounter for closed fracture Status: Acute Assessment and Plan: orthopedic surgery following WBAT PT/OT pain control patient will need admission to Rehab on discharge care coordination following (2) Chest pain: Code(s): R07.9 - Chest pain, unspecified Status: Acute Assessment and Plan: Patient reported chest pressure this morning located bilaterally the inferior aspect of the ribcage. EKG nonischemic. D-dimer was conducted to rule out PE, came back elevated at 5.62, prompting CT chest PE protocol which was negative for PE but did show bilateral pleural effusions. My visualization of CT of the chest shows minimal pleural effusions more on the right than the left. Patient does have known history of congestive heart failure but has not been in exacerbation during hospitalization. s/p IV lasix Monitor for improvement of chest pain (3) UTI (urinary tract infection): Code(s): N39.0 - Urinary tract infection, site not specified Status: Acute Assessment and Plan: Patient then had onset of brown urine today. No complaint of urinary symptoms. Initial UA on admission showed 1+ protein however repeat shows no protein, trace blood, 0-2 rbc's, 3+ leukocyte esterase, no squamous epithelial cells and 4+ bacteria. As such culture will be sent out. Initial concern for glomerulonephritis however no protein and minimal to no blood on urine. Urinalysis has been repeated this morning, showing 1+ protein, 2+ glucose, 2+ blood, nitrate positive, leukocyte esterase 3+, RBC 3-5, bacteria 3+, casts 0-2. Culture has been repeated as well. Follow urine culture- Gram negative bacilli. Follow final result. Ceftriaxone has been started, Day 3 Patient denies significant urinary symptoms at this time. (4) Left ankle pain: Qualifiers: Chronicity: acute Qualified Code(s): M25.572 - Pain in left ankle and joints of left foot Code(s): M25.572 - Pain in left ankle and joints of left foot Status: Acute Assessment and Plan: orthopedic surgery following x-rays ordered per ortho Findings: Slightly displaced fractures of the distal fibula and medial malleolus. pain control PT/OT Cam boot when out of bed (5) Left knee pain: Qualifiers: Chronicity: acute Qualified Code(s): M25.562 - Pain in left knee Code(s): M25.562 - Pain in left knee Status: Acute Assessment and Plan: orthopedic surgery following x-rays ordered per ortho pain control PT/OT (6) Fracture of phalanx of digit of hand: Qualifiers: Encounter type: initial encounter Fracture type: closed Qualified Code(s): S62.609A - Fracture of unspecified phalanx of unspecified finger, initial encounter for closed fracture Code(s): S62.609A - Fracture of unspecified phalanx of unspecified finger, initial encounter for closed fracture Status: Acute Assessment and Plan: orthopedic surgery following x-rays ordered per ortho ortho removed the splint the patient has had in place for the last 2 weeks after being seen in the ER at [facility]-currently stef-taped fingers pain control PT/OT (7) Hypertension: Code(s): I10 - Essential (primary) hypertension Status: Acute Assessment and Plan: restart home medications amlodipine 5 mg PO daily Furosemide 40 mg PO daily losartan 25 mg PO daily metoprolol 25 mg PO BID monitor blood pressures and adjust as indicated (8) HLD (hyperlipidemia): Code(s): E78.5 - Hyperlipidemia, unspecified Status: Acute Assessment and Plan: continue home atorvastatin 80 mg PO daily (9) CAD (coronary artery disease): Code(s): I25.10 - Atherosclerotic heart disease of [place] coronary artery without angina pectoris Status: Acute Assessment and Plan: patient denies chest pain continue home medications isosorbide 60 mg PO BID ASA 81 mg PO daily atorvastatin 80 mg PO daily (10) Squamous cell carcinoma of lower leg: Code(s): C44.721 - Squamous cell carcinoma of skin of unspecified lower limb, including hip Status: Acute Assessment and Plan: 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 Initially had brown urine and this has cleared up with antibiotics and oral hydration. Follow urine culture final result for adjustment of antibiotics if needed. patient again has brown urine and low urine output, hold PO furosemide for now, IV fluid bolus 500 mL over 4 hours, if improvement noted continue judicious IV hydration AM labs Subjective Date/time seen: 07/22/25 08:01 Interval history: Patient seen for a follow up visit. patient lying in bed, in no acute distress. Patient reports pain is controlled with current pain medications. Patient with brown urine still, also noted to be low output. PO furosemide placed on hold. Give 500 mL bolus over 4 hours. If urine output improves and color improves, continue judicious fluid resuscitation as patient appears to be dehydrated. Urine culture pending and patient continues on IV ceftriaxone for suspected UTI. Check AM labs. Review of Systems Review of Systems: All systems reviewed & are unremarkable except as noted in HPI and below (Subjective) Exam Const: General: comfortable and no acute distress HENMT: Mouth: Yes moist mucous membranes Eyes: Pupils: Equal, round and reactive pupils present Neck: Neck: supple Resp: Effort & Inspection: normal respiratory effort Auscultation: clear to auscultation bilaterally Cardio: Rate: regular rate Rhythm: regular rhythm GI: Inspection: non-distended GI Palp: Yes Soft to palpation Auscultation: normal bowel sounds Neuro: Cranial nerves: Yes Equal, round and reactive pupils present Extrem: Other: left lower extremity chronic wound, no purulent drainage. right BKA Psych: Mental Status: mental status grossly normal Affect: normal affect Objective Data Vital Signs Vital Signs: Vital Signs - 24 hr 07/21/25 09:05 07/21/25 14:00 07/21/25 20:00 Temperature 96.2 F L Pulse Rate 67 65 Respiratory Rate 22 H Blood Pressure 118/45 L Pulse Oximetry 92 Oxygen Delivery Room Air 07/21/25 21:04 07/21/25 22:00 07/22/25 06:00 Temperature 98.4 F 97.5 F L Pulse Rate 66 65 68 Respiratory Rate 18 16 Blood Pressure 118/82 117/35 L Pulse Oximetry 96 95 Oxygen Delivery Intake/Output Intake/Output: Intake & Output 07/19/25 07/20/25 07/21/25 07/22/25 23:59 23:59 23:59 23:59 Intake Total 770 790 590 Output Total 1650 600 300 Balance -880 190 290 Meds/Results Medications: Active Medications Generic Name Dose Route Start Last Admin Trade Name Freq PRN Reason Stop Dose Admin Hydrocodone Bitart/Acetaminophen 1 tab 07/16/25 21:36 07/21/25 09:13 Hydrocodone/Acetaminophen (*Crx) 5-325 Mg Tablet PO 1 tab Q4-6H PRN Administration pain (scale score 4-6) Amlodipine Besylate 5 mg 07/17/25 21:00 07/21/25 21:04 Amlodipine Besylate 5 Mg Tablet PO 5 mg HS ESTIVEN Administration Aspirin 81 mg 07/17/25 17:00 07/21/25 17:28 Aspirin 81 Mg Chewable Tablet PO 81 mg BID ESITVEN Administration Atorvastatin Calcium 80 mg 07/16/25 21:40 07/21/25 21:03 Atorvastatin 40 Mg Tablet PO 80 mg HS ESTIVEN Administration Bisacodyl 5 mg 07/16/25 21:36 Bisacodyl 5 Mg Tablet Ec PO DAILY PRN Constipation Dextrose 12.5 gm 07/16/25 21:38 Dextrose 50% 25 Gm/50 Ml Syringe IV PUSH PRN PRN Hypoglycemia Protocol Empagliflozin 10 mg 07/18/25 09:00 07/21/25 09:05 Empagliflozin 10 Mg Tablet PO 10 mg DAILY ESTIVEN Administration Fluticasone Propionate 1 spray 07/16/25 21:36 Fluticasone Propionate 0.05% Na Spr 16 Gm Btl (*Bkc) NASAL Q12H PRN allergy symptoms Folic Acid 0.4 mg 07/16/25 21:45 07/21/25 21:04 Folic Acid 0.4 Mg Tablet PO 0.4 mg HS ESTIVEN Administration Furosemide 40 mg 07/18/25 09:00 07/21/25 09:09 Furosemide 40 Mg Tablet PO 40 mg DAILY ESTIVEN Administration Glucose 15 gm 07/16/25 21:38 Glucose Oral Gel 15 Gm Of Glucse In 37.5 Gm Tube PO PRN PRN Hypoglycemia Protocol Hydroxychloroquine Sulfate 200 mg 07/17/25 17:00 07/21/25 21:03 Hydroxychloroquine Sulfate 200 Mg Tablet PO 200 mg QID ESTIVEN Administration Dextrose 1,000 mls @ 100 mls/hr 07/16/25 21:38 Dextrose 5% 1,000 Ml IVPB PRN PRN Hypoglycemia Protocol Ceftriaxone Sodium 1 gm/ 50 mls @ 100 mls/hr 07/19/25 13:30 07/21/25 09:43 Sodium Chloride IVPB Infused QAM ESTIVEN Infusion Isosorbide Mononitrate 60 mg 07/17/25 21:00 07/21/25 21:07 Isosorbide Mononitrate 60 Mg Tab.Er.24h PO 60 mg 2100 ESTIVEN Administration Losartan Potassium 25 mg 07/18/25 09:00 07/21/25 21:04 Losartan Potassium 25 Mg Tablet PO 25 mg Q12HR ESTIVEN Administration Metoprolol Tartrate 25 mg 07/17/25 09:00 07/21/25 21:04 Metoprolol Tartrate 25 Mg Tablet PO 25 mg Q12HR ESTIVEN Administration Ondansetron HCl 4 mg 07/17/25 09:50 07/17/25 10:13 Ondansetron Inj 4 Mg/2 Ml Vial IV PUSH 4 mg Q6H PRN Administration Nausea And Vomiting Pantoprazole Sodium 40 mg 07/17/25 09:00 07/21/25 21:03 Pantoprazole 40 Mg Tablet PO 40 mg Q12HR ESTIVEN Administration Polyethylene Glycol 17 gm 07/16/25 21:36 07/20/25 09:32 Polyethylene Glycol 3350 17 Gm Powd.Pack PO 17 gm DAILY PRN Administration Constipation Ranolazine 500 mg 07/18/25 09:00 07/21/25 21:03 Ranolazine 500 Mg Tab.Er.12h PO 500 mg Q12HR ESTIVEN Administration Vitamin D 100 mcg 07/17/25 09:00 07/21/25 09:05 Cholecalciferol (Vitamin D3) 25 Mcg (1,000 Units) Tablet PO 100 mcg DAILY ESTIVEN Administration Radiology Results: ITS Impressions Pelvis CT 07/16/25 17:43 IMPRESSION: Acute displaced vertical left sacral fracture.i All CT scans at this facility are performed using low dose modulation techniques as appropriate to perform exam including the following: automated exposure control; use of iterative reconstruction technique; adjustment of the mA and/or kV according to patient size (this includes techniques or standardized protocols for targeted exams where dose is matched to indication/reason for exam). Ankle X-Ray 07/17/25 09:05 Impression: Fractures detailed above Hand X-Ray 07/17/25 09:05 IMPRESSION: Findings consistent with an evulsion fracture at the proximal and dorsal aspect of the middle phalanx of the fifth digit. There may be an additional fracture with tiny fragment at the palmar aspect. Knee X-Ray 07/17/25 09:05 IMPRESSION: No acute abnormalities are seen. Chest X-Ray 07/19/25 10:46 Impression: No acute cardiopulmonary abnormality. Chest/Abdomen/Pelvis CTA 07/19/25 11:53 IMPRESSION: 1. Development of bilateral pleural effusions, with mild atelectatic changes. No pulmonary emboli seen. 2. Minimally displaced vertical fracture left sacral alar unchanged. 3. Exam somewhat limited as noted above. Labs Labs: Laboratory Results - last 24 hr 07/22/25 06:27 WBC 6.4 RBC 3.64 L Hgb 11.6 L Hct 36.3 L MCV 99.7 MCH 31.9 MCHC 32.0 RDW 16.4 H Plt Count 256 MPV 8.6 Immature Gran % (Auto) 0.3 Neut % (Auto) 74.4 H Lymph % (Auto) 11.7 L [place] % (Auto) 9.2 H Eos % (Auto) 3.9 Baso % (Auto) 0.5 Lymph # (Auto) 0.75 L [place] # (Auto) 0.6 Eos # (Auto) 0.3 Baso # (Auto) 0.0 Abs Immat Gran (auto) 0.02 Absolute Neuts (auto) 4.8 Absolute Nucleated RBC 0.000 Nucleated RBC % 0.0 Sodium 137 Potassium 3.6 Chloride 103 Carbon Dioxide 27 Anion Gap 7 BUN 16 Creatinine 1.01 H Estim Creat Clear Calc 40 Estimated GFR 53 L Glucose 96 Calcium 8.6 Total Bilirubin 1.0 AST 33 ALT 20 Alkaline Phosphatase 173 H Total Protein 6.4 Albumin 3.2 L Quality VTE Prophylaxis VTE prophylaxis: pharmacologic ordered Hospitalist [facility] Advance Care Plan I have confirmed that the patient's Advanced Care Plan is present, code status is documented, or surrogate decision maker is listed in patient medical record.: Yes Medication Reconciliation I have utilized all available resources to obtain, update and review the patients current medications (includes all prescriptions, OTC, herbals, cannabis, and nutritional supplements).: Yes
[2025-07-22] MEDS: cefTRIAXone 1 GM in SODIUM CHLORIDE 0.9% IV 50 ML 100 ML IVPB (09:17)
[2025-07-22] MEDS: CHOLECALCIFEROL (VITAMIN D3) 25 MCG (1,000 UNITS) TABLET 100 MCG PO (09:18)
[2025-07-22] MEDS: HYDROcodone/acetaminophen (*CRX) 5-325 MG TABLET 1 TAB PO ×2 (09:18→21:19)
[2025-07-22] MEDS: ASPIRIN 81 MG CHEWABLE TABLET PO ×2 (09:18→16:51)
[2025-07-22 09:19] VITALS: PULSE 68
[2025-07-22] MEDS: RANOLAZINE 500 MG TAB.ER.12H PO ×2 (09:19→21:19)
[2025-07-22] MEDS: EMPAGLIFLOZIN 10 MG TABLET PO (09:19)
[2025-07-22] MEDS: LOSARTAN POTASSIUM 25 MG TABLET PO ×2 (09:19→21:18)
[2025-07-22] MEDS: METOPROLOL TARTRATE 25 MG TABLET PO ×2 (09:19→21:18)
[2025-07-22] MEDS: HYDROXYCHLOROQUINE SULFATE 200 MG TABLET PO ×4 (09:19→21:18)
[2025-07-22] MEDS: FUROSEMIDE 40 MG TABLET PO (09:19)
[2025-07-22] MEDS: PANTOPRAZOLE 40 MG TABLET PO ×2 (09:19→21:19)
[2025-07-22 14:00] VITALS: BP 119/56; PULSE 63; RESP 12; TEMP 36.1; O2SAT 95
[2025-07-22] MEDS: SODIUM CHLORIDE 0.9% IV 500 ML 125 ML IV CONT (16:50)
[2025-07-22] MEDS: ATORVASTATIN 40 MG TABLET 80 MG PO (21:17)
[2025-07-22 21:18] VITALS: PULSE 68
[2025-07-22] MEDS: FOLIC ACID 0.4 MG TABLET PO (21:18)
[2025-07-22] MEDS: ISOSORBIDE MONONITRATE 60 MG TAB.ER.24H PO (21:18)
[2025-07-22 21:49] VITALS: BP 124/50; PULSE 102; RESP 17; TEMP 36.4; O2SAT 96
[2025-07-23 05:45] VITALS: BP 140/50
[2025-07-23 06:00] VITALS: BP 179/76; PULSE 68; RESP 16; TEMP 36.7; O2SAT 94
[2025-07-23 06:41] LABS: Hematocrit 35.9 % (37.0-47.0); Hemoglobin 11.6 g/dL (12.0-15.0); Immature Granulocyte Percent A 0.7 % (0-0.5); Lymphocytes Absolute Auto 0.71 K/mm3 (0.9-3.2); Mean Corpuscular HGB Conc 32.3 g/dl (32-36); Mean Corpuscular Hemoglobin 32.3 pg (26-34); Mean Corpuscular Volume 100.0 fl (80-100); Nucleated Red Blood Cells Absolute Auto 0.000 K/mm3 (0.0-0.012); Nucleated Red Blood Cells Perc 0.0 % (0.0-0.2); Platelet Count Result 247 k/mm3 (150-375); Red Blood Count 3.59 M/mm3 (4.2-5.4); White Blood Count 5.5 K/mm3 (4.5-10.0)
[2025-07-23 07:06] LABS: Alanine Aminotransferase 21 U/L (6-35); Albumin Level 3.1 g/dL (3.5-5.1); Alkaline Phosphatase 191 U/L (38-126); Anion Gap 7 mmol/L (4-12); Aspartate Amino Transferase 36 U/L (14-36); Bilirubin,Total 1.0 mg/dL (0.2-1.3); Blood Urea Nitrogen 12 mg/dL (7-17); Calcium 8.3 mg/dL (8.4-10.2); Carbon Dioxide 28 mmol/L (22-30); Chloride 102 mmol/L (98-107); Estimated CRCL calculation 42 ml/min; Estimated Glomerular Filt Rate 55; Glucose 92 mg/dL (65-110); Potassium 3.4 mmol/L (3.4-5.0); Sodium 137 mmol/L (137-145); Total Protein 6.2 g/dL (6.3-8.2)
[2025-07-23 09:23] VITALS: PULSE 665
[2025-07-23] MEDS: METOPROLOL TARTRATE 25 MG TABLET PO (09:23)
[2025-07-23] MEDS: CHOLECALCIFEROL (VITAMIN D3) 25 MCG (1,000 UNITS) TABLET 100 MCG PO (09:24)
[2025-07-23] MEDS: RANOLAZINE 500 MG TAB.ER.12H PO (09:24)
[2025-07-23] MEDS: HYDROXYCHLOROQUINE SULFATE 200 MG TABLET PO ×2 (09:24→12:26)
[2025-07-23] MEDS: LOSARTAN POTASSIUM 25 MG TABLET PO (09:24)
[2025-07-23] MEDS: PANTOPRAZOLE 40 MG TABLET PO (09:24)
[2025-07-23] MEDS: ASPIRIN 81 MG CHEWABLE TABLET PO (09:24)
[2025-07-23] MEDS: EMPAGLIFLOZIN 10 MG TABLET PO (09:24)
[2025-07-23] MEDS: cefTRIAXone 1 GM in SODIUM CHLORIDE 0.9% IV 50 ML 100 ML IVPB (09:26)
[2025-07-23] MEDS: HYDROcodone/acetaminophen (*CRX) 5-325 MG TABLET 1 TAB PO (12:27)
--- NOTE | 2025-07-23 13:35 | PM.DS ---
DS: Admitting Diagnosis Discharge Date 07/23/2025 0800 Admitting Diagnosis UTI with sacral fracture DS: Discharge Diagnosis Discharge Diagnosis (1) Closed sacral fracture: Code(s): S32.10XA - Unspecified fracture of sacrum, initial encounter for closed fracture Status: Acute Assessment and Plan: orthopedic surgery following WBAT PT/OT pain control patient will need admission to Rehab on discharge care coordination following (2) Chest pain: Code(s): R07.9 - Chest pain, unspecified Status: Acute Assessment and Plan: Patient reported chest pressure this morning located bilaterally the inferior aspect of the ribcage. EKG nonischemic. D-dimer was conducted to rule out PE, came back elevated at 5.62, prompting CT chest PE protocol which was negative for PE but did show bilateral pleural effusions. My visualization of CT of the chest shows minimal pleural effusions more on the right than the left. Patient does have known history of congestive heart failure but has not been in exacerbation during hospitalization. s/p IV lasix Monitor for improvement of chest pain (3) UTI (urinary tract infection): Code(s): N39.0 - Urinary tract infection, site not specified Status: Acute Assessment and Plan: Patient then had onset of brown urine today. No complaint of urinary symptoms. Initial UA on admission showed 1+ protein however repeat shows no protein, trace blood, 0-2 rbc's, 3+ leukocyte esterase, no squamous epithelial cells and 4+ bacteria. As such culture will be sent out. Initial concern for glomerulonephritis however no protein and minimal to no blood on urine. Urinalysis has been repeated this morning, showing 1+ protein, 2+ glucose, 2+ blood, nitrate positive, leukocyte esterase 3+, RBC 3-5, bacteria 3+, casts 0-2. Culture has been repeated as well. Follow urine culture- Gram negative bacilli. Follow final result. Ceftriaxone has been started, Day 3 Patient denies significant urinary symptoms at this time. (4) Left ankle pain: Qualifiers: Chronicity: acute Qualified Code(s): M25.572 - Pain in left ankle and joints of left foot Code(s): M25.572 - Pain in left ankle and joints of left foot Status: Acute Assessment and Plan: orthopedic surgery following x-rays ordered per ortho Findings: Slightly displaced fractures of the distal fibula and medial malleolus. pain control PT/OT Cam boot when out of bed (5) Left knee pain: Qualifiers: Chronicity: acute Qualified Code(s): M25.562 - Pain in left knee Code(s): M25.562 - Pain in left knee Status: Acute Assessment and Plan: orthopedic surgery following x-rays ordered per ortho pain control PT/OT (6) Fracture of phalanx of digit of hand: Qualifiers: Encounter type: initial encounter Fracture type: closed Qualified Code(s): S62.609A - Fracture of unspecified phalanx of unspecified finger, initial encounter for closed fracture Code(s): S62.609A - Fracture of unspecified phalanx of unspecified finger, initial encounter for closed fracture Status: Acute Assessment and Plan: orthopedic surgery following x-rays ordered per ortho ortho removed the splint the patient has had in place for the last 2 weeks after being seen in the ER at [facility]-currently stef-taped fingers pain control PT/OT (7) Hypertension: Code(s): I10 - Essential (primary) hypertension Status: Acute Assessment and Plan: restart home medications amlodipine 5 mg PO daily Furosemide 40 mg PO daily losartan 25 mg PO daily metoprolol 25 mg PO BID monitor blood pressures and adjust as indicated (8) HLD (hyperlipidemia): Code(s): E78.5 - Hyperlipidemia, unspecified Status: Acute Assessment and Plan: continue home atorvastatin 80 mg PO daily (9) CAD (coronary artery disease): Code(s): I25.10 - Atherosclerotic heart disease of [place] coronary artery without angina pectoris Status: Acute Assessment and Plan: patient denies chest pain continue home medications isosorbide 60 mg PO BID ASA 81 mg PO daily atorvastatin 80 mg PO daily (10) Squamous cell carcinoma of lower leg: Code(s): C44.721 - Squamous cell carcinoma of skin of unspecified lower limb, including hip Status: Acute Assessment and Plan: 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 Initially had brown urine and this has cleared up with antibiotics and oral hydration. Follow urine culture final result for adjustment of antibiotics if needed. patient again has brown urine and low urine output, hold PO furosemide for now, IV fluid bolus 500 mL over 4 hours, if improvement noted continue judicious IV hydration AM labs DS: Summary Hospital Course Hospital Course: Patient 80-year-old female with past medical history regularly amputation, hypertension, CAD, CABG in 2013 and cancer which she was eating chemo infusions which she had a smears follow-up. She was in moved to [facility] x-rays reveal any fractures at that time was sent home. On follow-up with PCP she was sent to move out which did reveal sacral fracture the patient was at home and some lateral pain came back here. Pelvis CT without contrast demonstrated a displaced vertical left sacral fracture orthopedic surgery was consulted is recommending rehab. Patient did have UTI cultures did grow E coli. Patient was initiated on ceftriaxone which has been converted to cefdinir. The patient has been working with PT and OT and is doing okay. Patient is being discharged to acute rehab for further therapy. Currently patient denies any chest pain, shortness a breath, nausea, vomiting, diarrhea constipation. She does state that her pain is 3 or 4 however tolerable. She did not really care for any of the food however did encourage her to eat. Currently she is stable for discharge for labs and vital signs. Patient is going to acute rehab for further PT and OT. Status at Discharge Functional status at discharge: uses cane/walker Overall status at discharge: patient is progressing back to baseline Time Spent with Patient Time attestation: Total time spent providing and/or coordinating discharge services:43 minutes Time spent: Greater than 30 minutes Exam Narrative: General: well appearing, appears stated age. HEENT: normocephalic, atraumatic. Mucous membranes moist. EOMI, PERRLA, bilateral sclera anicteric, no conjunctival injection. Neck supple without JVD, lymphadenopathy, or bruit. Respiratory: clear to auscultation bilaterally. No rales/rhonchi/wheezes. Cardiovascular: Regular rate and rhythm, normal S1-S2 upon auscultation. No murmurs, rubs, or clicks. PMI is nondisplaced, capillary refill less than 3 second. Abdomen: Soft, round, no pulsatile masses, nondistended and nontender. No rebound, no guarding. No CVA tenderness, no hepatosplenomegaly. Bowel sounds present to all four quadrants. No high pitch or tinkling sounds, resonant to percussion. Extremities: No cyanosis, clubbing, or edema present. Pulses are palpable 2/2. Active ROM to all four extremities. Neuro: Alert and orientated x 4. PERRLA. Cranial nerves 2-12 intact without focal deficit. Skin: Warm, dry, and intact, without rash, erythema, or lesion. Psych: pleasant, cooperative, normal speech, normal affect, no hallucinations, no dysarthria DS: Data Data Completed and Pending Labs on day of discharge: Labs from last 24 hours 07/23/25 06:17 WBC 5.5 RBC 3.59 L Hgb 11.6 L Hct 35.9 L MCV 100.0 MCH 32.3 MCHC 32.3 RDW 16.3 H Plt Count 247 MPV 8.7 Immature Gran % (Auto) 0.7 H Neut % (Auto) 68.0 Lymph % (Auto) 12.8 L [place] % (Auto) 10.6 H Eos % (Auto) 7.0 H Baso % (Auto) 0.9 Lymph # (Auto) 0.71 L [place] # (Auto) 0.6 Eos # (Auto) 0.4 H Baso # (Auto) 0.1 Abs Immat Gran (auto) 0.04 H Absolute Neuts (auto) 3.8 Absolute Nucleated RBC 0.000 Nucleated RBC % 0.0 Sodium 137 Potassium 3.4 Chloride 102 Carbon Dioxide 28 Anion Gap 7 BUN 12 Creatinine 0.97 Estim Creat Clear Calc 42 Estimated GFR 55 L Glucose 92 Calcium 8.3 L Total Bilirubin 1.0 AST 36 ALT 21 Alkaline Phosphatase 191 H Total Protein 6.2 L Albumin 3.1 L Discharge Plan Discharge Attending physician on discharge: Taylor Benoit Consulting providers: Mohit Perales Discharging Clinician: Osiel Valderrama Patient Disposition: Inpatient Rehab Facility Activity: may shower, unlimited and as tolerated Diet: heart healthy Discharge Instructions: Take all medications as prescribed even if feeling better Eat well balanced meals and stay hydrated Keep active to remain strong Avoid use of diapers or pads Good shukri Care every 2 hours Trend urine output continue to work with PT/OT to get home If you should experience any chest pain, shortness of breath, temps >100.4 or any other worrisome symptoms please follow up with your PCP come back to the hospital Follow up with your primary in 1 weeks It has been a pleasure taking care of you thank you for using our services Patient Language: Salvadorean Stand Alone Forms: General Discharge Information Follow-up/Referrals: Chiquita Miller [Other] - 1 Week Discharge Medications: New cefdinir 300 mg capsule 300 mg PO Q12H Qty: 10 0RF Continued amlodipine 5 mg tablet 5 mg PO HS Patient Comments: takes at HS atorvastatin 40 mg tablet 80 mg PO HS hydrocodone-acetaminophen 5-325 mg tablet 1 tablet PO Q4-6H PRN (Reason: pain (scale score 4-6)) hydroxychloroquine [Plaquenil] 200 mg tablet 200 mg PO QID furosemide 40 mg tablet 40 mg PO TID isosorbide mononitrate 60 mg tablet extended release 24 hr 60 mg PO BID losartan 25 mg tablet 25 mg PO QID metoprolol tartrate 25 mg tablet 25 mg PO BID omeprazole 40 mg capsule,delayed release(DR/EC) 40 mg PO QID ranolazine 500 mg tablet extended release 12 hr 500 mg PO QID bisacodyl 5 mg tablet 5 mg PO DAILY PRN (Reason: constipation) cholecalciferol (vitamin D3) [Vitamin D3] 50 mcg (2,000 unit) capsule 4,000 unit PO DAILY fluticasone propionate 50 mcg/actuation spray,suspension 1 spray intranasal BID PRN (Reason: allergy symptoms) Rx Instructions: administer into each nostril folic acid 400 mcg tablet 400 mcg PO HS Jardiance 10 mg tablet 10 mg PO QID polyethylene glycol 3350 17 gram/dose powder 17 g PO DAILY PRN (Reason: constipation) aspirin 81 mg tablet,chewable 81 mg PO BID Date of admission: 07/18/25 17:35 Primary Care Provider: Chiquita Miller Admitting Provider: Kerri Wang Attending physician on admission: Kerri Wang Condition: Stable Quality VTE Prophylaxis VTE prophylaxis: pharmacologic ordered Hospitalist MIPS Heart Failure (Exclusion) Patient has history of Heart Transplant or Left Ventricular Assistive Device?: No IF YES, STOP HERE Heart Failure (Qualifier) Patient has current or prior documentation of LVEF less than or equal to 40%, or mod/servere depressed LVSF?: No IF NO, STOP HERE
[2025-07-23 14:00] VITALS: BP 149/68; PULSE 66; RESP 16; TEMP 36.7; O2SAT 93
--- NOTE | 2025-07-23 16:25 | PC.NURSE ---
Patient left at 1557 via stretcher with EMS accompanied by . all belongings sent with patient .
== END 2025-07-23 15:57 | DRG 552 ==
LOC: ANHED 18:28 → ANH3MEDSUR 19:27
PROVIDERS: Nurse Practitioner Adult Health; Student in an Organized Health Care Education/Training Program; Admitting Provider Internal Medicine; Emergency Provider Emergency Medicine; Visit Provider General Practice
DX: S32.10XA Unspecified fracture of sacrum, initial encounter for closed fracture (principal); L97.929 Non-pressure chronic ulcer of unspecified part of left lower leg with unspecified severity; N39.0 Urinary tract infection, site not specified; B96.20 Unspecified Escherichia coli [E. coli] as the cause of diseases classified elsewhere; S62.617A Displaced fracture of proximal phalanx of left little finger, initial encounter for closed fracture; W19.XXXA Unspecified fall, initial encounter; C44.729 Squamous cell carcinoma of skin of left lower limb, including hip; I50.9 Heart failure, unspecified; I11.0 Hypertensive heart disease with heart failure; I25.10 Atherosclerotic heart disease of native coronary artery without angina pectoris; R07.9 Chest pain, unspecified; Z95.1 Presence of aortocoronary bypass graft; Z85.828 Personal history of other malignant neoplasm of skin; Z87.891 Personal history of nicotine dependence; Z79.82 Long term (current) use of aspirin; Z79.84 Long term (current) use of oral hypoglycemic drugs; Z89.511 Acquired absence of right leg below knee; Z86.718 Personal history of other venous thrombosis and embolism
CPT/HCPCS: 36415; 71045; 71275; 72192; 73130; 73562; 73610; 74177; 80048; 80053; 81001; 82550; 82948; 85025; 85380; 85610; 87086; 87186; 93005; 96374; 97110; 97162; 97166; 97530; 97535; 99212; 99285; A9270; G0378; G0463; J0696; J1938; J2405; J7040; L2116; Q9967